=== PATIENT | male | born 1945 | race African-American/Black ===

== ENCOUNTER 2016-06-29 03:12 | Inpatient (IN) | payer OTHER, MEDICARE ==
[~2016-06-29] VITALS: Ht 170.2 cm; Wt 108.1 kg
[2016-06-29] VITALS (9 sets, daily range): BP systolic 120–174; BP diastolic 64–84; PULSE 60–84; RESP 14–20; TEMP 96.7–98.6; O2SAT 93–100
[~2016-06-29 03:12] MED LIST: ASPI325T PO; FURO20 PO; METO50TA PO; PACE100T2 PO; RANI150T PO; WARF2TAB PO
[2016-06-29] MEDS ORDERED: SODIUM CHLOR 0.9% 1000 ML INJ 1,000 ML IV SCH (03:26)
[2016-06-29] MEDS ORDERED: SODIUM CHLORIDE 0.9% FLUSH 10 ML FLUSH IVF PRN (03:30)
[2016-06-29] MEDS ORDERED: METO50TA PO (03:32)
[2016-06-29] MEDS ORDERED: WARF4TAB51 PO (03:32)
[2016-06-29] MEDS ORDERED: ZANT150T2 PO (03:32)
[2016-06-29] MEDS ORDERED: FURO1TAB60 PO (03:32)
--- NOTE | 2016-06-29 03:36 | PD ---
HPI Chief Complaint: GI Complaint Time Seen by Provider: 03:24 Travel History International Travel<30 days: No Contact w/Intl Traveler<30days: No Traveled to known affect area: No History of Present Illness HPI This is a 70-year-old male with a history of COPD, CHF, previous left sided MCA stroke, a flutter, paced rhythm, who presents today with complaints of near syncope while having a bowel movement. The patient reports that he's had 3 large explosive bowel movements that are maroon in color. He states the last bowel movement was followed by severe dizziness, sweating and feeling as though he was given a pass out. The patient is taking Coumadin for his abnormal cardiac rhythm. He denies any pain. He denies any shortness of breath. He states he is much better now than he was when 911 was called. PFSH Past Medical History Arthritis: No Asthma: No Autoimmune Disease: No Blood Disorders: No Anxiety: No Depression: No Heart Rhythm Problems: Yes (A-FIB) Cancer: No Cardiovascular Problems: Yes High Cholesterol: No Chest Pain: No Congestive Heart Failure: Yes COPD: Yes Cerebrovascular Accident: Yes (2014) Diabetes: No Endocrine: No GERD: No Gout: Yes Genitourinary: No Headaches: No Hiatal Hernia: No Hypertension: Yes Immune Disorder: No Implanted Vascular Access Dvce: No Kidney Stones: No Musculoskeletal: No Neurologic: No Psychiatric: No Reproductive: No Respiratory: Yes Immunizations Current: No Migraines: No Renal Failure: No Seizures: No Sickle Cell Disease: No Sleep Apnea: Yes (PRN) Thyroid Disease: No Ulcer: No Past Surgical History Abdominal Surgery: No AICD: No Appendectomy: Yes Arteriovenous Shunt: No Cardiac Surgery: No Ear Surgery: No Endocrine Surgery: No Eye Surgery: No Genitourinary Surgery: No Gynecologic Surgery: No Insulin Pump: No Joint Replacement: No Oral Surgery: No Pacemaker: No Thoracic Surgery: No Tonsillectomy: Yes Other Surgery: Yes Social History Alcohol Use: No Tobacco Use: No Substance Use: No Allergies-Medications (Allergen,Severity, Reaction): Coded Allergies: Amoxicillin (Verified Allergy, Intermediate, DELERIOUS, 03/11/15) Uncoded Allergies: all cillian (Allergy, Severe, Hallucinations, 06/29/16) Reported Meds & Prescriptions Reported Meds & Active Scripts Active Reported Warfarin 2 Mg Tab 2 Mg PO DAILY Zantac (Ranitidine HCl) 150 Mg Tab 150 Mg PO BID Lasix (Furosemide) 40 Mg Tab 40 Mg PO BID Metoprolol Tartrate 50 Mg Tab 50 Mg PO BID Review of Systems Except as stated in HPI: all other systems reviewed are Neg General / Constitutional: No: Fever, Chills HENT: No: Headaches, Lightheadedness Cardiovascular: No: Chest Pain or Discomfort, Palpitations Respiratory: No: Cough, Shortness of Breath Gastrointestinal: Positive: Hematochezia, No: Nausea, Vomiting, Abdominal Pain Genitourinary: No: Urgency, Nocturia Musculoskeletal: No: Myalgias, Weakness Neurologic: Positive: Dizziness (previously, none now), Syncope (near syncope while on the toilet.), Other (residual right sided weakness secondary to previous CVA), No: Headache, Change in Mentation Physical Exam Narrative GENERAL: Well-developed well-nourished male in no acute respiratory distress. SKIN: Focused skin assessment warm/dry. HEAD: Atraumatic. Normocephalic. EYES: Questionable pale conjunctiva. No icteric sclera. ENT: No nasal bleeding or discharge. Mucous membranes moist. Question will pale mucous membranes NECK: Trachea midline. No JVD. Supple CARDIOVASCULAR: Paced rhythm with a rate of 68. No murmur appreciated. RESPIRATORY: No accessory muscle use. Clear to auscultation. Breath sounds equal bilaterally. GASTROINTESTINAL: Abdomen soft, non-tender, nondistended. Hepatic and splenic margins not palpable. RECTAL EXAM: No masses or tenderness, stool is maroon. It tested heme positive on the Hemoccult strip. MUSCULOSKELETAL: No obvious deformities. No clubbing. No cyanosis. No edema. NEUROLOGICAL: Awake and alert. No obvious cranial nerve deficits. Mild right sided deficit secondary to old stroke. Normal speech. PSYCHIATRIC: Appropriate mood and affect; insight and judgment normal. Data Data Last Documented VS Vital Signs Date Time Temp Pulse Resp B/P Pulse Ox O2 Delivery O2 Flow Rate FiO2 06/29/16 05:00 60 16 124/68 100 06/29/16 03:15 98.6 Orders Basic Metabolic Panel (Bmp) (06/29/16 03:26) Comprehensive Metabolic Panel (06/29/16 03:26) Prothrombin Time / Inr (Pt) (06/29/16 03:26) Act Partial Throm Time (Ptt) (06/29/16 03:26) Type And Screen (06/29/16 03:26) Abdomen, Kub Only (06/29/16 03:26) Ecg Monitoring (06/29/16 03:26) Iv Access Insert/Monitor (06/29/16 03:26) Oximetry (06/29/16 03:26) Sodium Chlor 0.9% 1000 Ml Inj (Ns 1000 M (06/29/16 03:26) Sodium Chloride 0.9% Flush (Ns Flush) (06/29/16 03:30) Complete Blood Count With Diff (06/29/16 04:22) Admit Order (Ed Use Only) (06/29/16 05:24) Labs Laboratory Tests Test 06/29/16 03:30 White Blood Count 8.5 TH/MM3 Red Blood Count 4.92 MIL/MM3 Hemoglobin 10.3 GM/DL Hematocrit 32.8 % Mean Corpuscular Volume 66.7 FL Mean Corpuscular Hemoglobin 20.9 PG Mean Corpuscular Hemoglobin 31.4 % Concent Red Cell Distribution Width 18.5 % Platelet Count 199 TH/MM3 Mean Platelet Volume 9.0 FL Neutrophils (%) (Auto) 64.8 % Lymphocytes (%) (Auto) 22.3 % Monocytes (%) (Auto) 10.4 % Eosinophils (%) (Auto) 2.2 % Basophils (%) (Auto) 0.3 % Neutrophils # (Auto) 5.5 TH/MM3 Lymphocytes # (Auto) 1.9 TH/MM3 Monocytes # (Auto) 0.9 TH/MM3 Eosinophils # (Auto) 0.2 TH/MM3 Basophils # (Auto) 0.0 TH/MM3 CBC Comment AUTO DIFF Differential Comment AUTO DIFF CONFIRMED Platelet Estimate NORMAL Platelet Morphology Comment NORMAL Ovalocytes 1+ Acanthocytes 1+ Keratocytes OCC Prothrombin Time 13.5 SEC Prothromb Time International 1.2 RATIO Ratio Activated Partial 23.1 SEC Thromboplast Time Sodium Level 146 MEQ/L Potassium Level 3.6 MEQ/L Chloride Level 109 MEQ/L Carbon Dioxide Level 29.3 MEQ/L Anion Gap 8 MEQ/L Blood Urea Nitrogen 21 MG/DL Creatinine 1.23 MG/DL Estimat Glomerular Filtration 70 ML/MIN Rate Random Glucose 154 MG/DL Calcium Level 8.8 MG/DL Total Bilirubin 1.1 MG/DL Aspartate Amino Transf 23 U/L (AST/SGOT) Alanine Aminotransferase 16 U/L (ALT/SGPT) Alkaline Phosphatase 80 U/L Total Protein 6.9 GM/DL Albumin 3.3 GM/DL Blood Type O POSITIVE Antibody Screen NEGATIVE MDM Medical Decision Making Medical Screen Exam Complete: Yes Emergency Medical Condition: Yes Differential Diagnosis Symptomatically anemia versus GI bleed versus electrolyte abnormality versus vagovagal Narrative Course 70 year-old gentleman with a history of hypertension, paced rhythm with previous a flutter, who presents today with near syncope while having a bowel movement. The patient states she's had 3 large bowel movements that are maroon in color today. He denies any pain. He denies any shortness of breath. He did report dizziness and diaphoresis during the episode. The patient has heme positive maroon stool on examination. Hemoglobin is 10.3. INR is 1.2. There is a call out to the [facility] for admission. Diagnosis Primary Impression: GI bleed Additional Impressions: Near syncope HX: anticoagulation History of CVA (cerebrovascular accident) Disposition: 01 DISCHARGE HOME Mayur Posada MD June 29, 2016 03:36
[2016-06-29 03:54] LABS: APTT (PATIENT) 23.1 SEC (24.3-30.1); INTERNATIONAL NORMALIZED RATIO 1.2 RATIO; PROTHROMBIN TIME - PATIENT 13.5 SEC (9.8-11.6)
[2016-06-29 04:08] LABS: ALT (GPT) 16 U/L (12-78); ANION GAP 8 MEQ/L (5-15); AST (GOT) 23 U/L (15-37); BICARBONATE 29.3 MEQ/L (21.0-32.0); BLOOD UREA NITROGEN 21 MG/DL (7-18); CHLORIDE 109 MEQ/L (98-107); GLOMERULAR FILTRATION RATE 70 ML/MIN (>89); POTASSIUM 3.6 MEQ/L (3.5-5.1); SODIUM (NA) 146 MEQ/L (136-145)
[2016-06-29 04:10] LABS: ALKALINE PHOSPHATASE 80 U/L (45-117); TOTAL BILIRUBIN ADULT 1.1 MG/DL (0.2-1.0)
--- NOTE | 2016-06-29 04:17 | RADRPT ---
EXAM DATE/TIME: 06/29/2016 03:41 [facility] COMPARISON: CHEST PA & LAT, March 11, 2015, 4:07. INDICATIONS : Blood in stool. General weakness. MEDICAL HISTORY : Hypertension. Chronic obstructive pulmonary disease. SURGICAL HISTORY : Appendectomy. ENCOUNTER: Initial ACUITY: 1 day PAIN SCORE: 0/10 LOCATION: All quadrants. FINDINGS: Supine view of the abdomen was performed. The abdominal bowel gas pattern is normal. No abnormal ma sses, calcifications, or organomegaly is seen. There are degenerative changes involving the lower lum bar spine. Nonspecific elevation of the right hemidiaphragm. Stable compared to the prior chest x-ray .. CONCLUSION: Benign abdomen. Sherwin Thomson MD on June 29, 2016 at 4:14 Board Certified Radiologist. This report was verified electronically.
[2016-06-29 04:33] LABS: AUTOMATED NEUTROPHIL # 5.5 TH/MM3 (1.8-7.7); BASOPHIL % 0.3 % (0.0-2.0); EOSINOPHIL # 0.2 TH/MM3 (0-0.4); EOSINOPHIL % 2.2 % (0.0-4.0); HEMATOCRIT 32.8 % (39.0-51.0); LYMPH % 22.3 % (9.0-44.0); LYMPHOCYTE # 1.9 TH/MM3 (1.0-4.8); MEAN CELL VOLUME 66.7 FL (80.0-100.0); MEAN CORPUSCULAR HEMOGLOBIN 20.9 PG (27.0-34.0); MEAN CORPUSCULAR HGB CONC 31.4 % (32.0-36.0); MONO % 10.4 % (0.0-8.0); NEUT % 64.8 % (16.0-70.0); PLATELET COUNT 199 TH/MM3 (150-450); RED BLOOD COUNT 4.92 MIL/MM3 (4.50-5.90); RED CELL DISTRIBUTION WIDTH 18.5 % (11.6-17.2); WHITE BLOOD COUNT 8.5 TH/MM3 (4.0-11.0)
[2016-06-29 04:36] LABS: HEMO FLAGS AUTO DIFF
[2016-06-29 05:03] LABS: OVALOCYTES 1+ (NORMAL); PLATELET ESTIMATE SMEAR NORMAL (NORMAL); PLATELET MORPHOLOGY NORMAL (NORMAL)
[2016-06-29 05:05] LABS: ACANTHOCYTES 1+ (NORMAL); KERATOCYTES OCC (NORMAL); SCAN/DIFF AUTO DIFF CONFIRMED
[2016-06-29] MEDS ORDERED: SODIUM CHLORIDE 0.9% FLUSH 10 ML FLUSH IV FLUSH PRN ×2 (05:45→09:15)
[2016-06-29] MEDS ORDERED: ONDANSETRON HCL 4 MG/2 ML VIAL IVP PRN ×2 (05:45→09:15)
[2016-06-29] MEDS ORDERED: NALOXONE HCL 0.4 MG/ML AMP IV PRN (05:45)
[2016-06-29] MEDS ORDERED: PANTOPRAZOLE INJ 80 MG in SODIUM CHLORIDE 0.9% INJ 35 ML IV ONE (06:45)
[2016-06-29] MEDS: PANTOPRAZOLE INJ 80 MG in SODIUM CHLORIDE 0.9% INJ 100 ML IV SCH ×2 (07:32→16:17)
--- NOTE | 2016-06-29 08:16 | EKG ---
Date Performed: 06/29/2016 Time Performed: 03:24:11 PTAGE: 70 years EKG: ELECTRONIC ATRIAL PACEMAKER ELECTRONIC VENTRICULAR PACEMAKER ABNORMAL RHYTHM ECG INTERPRETA TION BASED ON A DEFAULT AGE OF 40 YEARS COMPARED TO PRIOR ELECTROCARDIOGRAM, Dual-chamber pacemaker i s present. PREVIOUS TRACING : 03/11/2015 03.44 DOCTOR: Hector Her Interpretating Date/Time 06/29/2016 08:14:32
[2016-06-29] MEDS ORDERED: SODIUM CHLORIDE 0.9% FLUSH 10 ML FLUSH IV FLUSH SCH (09:00)
--- NOTE | 2016-06-29 09:12 | HHI.HP ---
[facility] Service [facility] Primary Care Physician Salima Gorman Admission Diagnosis GI Bleed, anemia, near syncope, paced rhythnm Diagnoses: Travel History International Travel<30 Days: No Contact w/Intl Traveler <30 Da: No Traveled to Known Affected Are: No History of Present Illness 70-year-old male with a history of COPD, systolic CHF EF 30%, previous left sided MCA stroke, A Fib/Flutter, paced rhythm, who presented to the ED with complaints of near syncope while having a bowel movement. The patient reports that he's had 3 large explosive bowel movements all bloody. He states the last bowel movement was followed by severe dizziness, sweating and feeling as though he was given a pass out. He was waking up at 2 AM with some abdominal pain, ' knot" and fullness, he went to the bath without problems and had 3 large bloody BMs. He says this never happened before. The patient is taking Coumadin for his abnormal cardiac rhythm for a long time. INR admission 1.2 . He denies any pain. He denies any shortness of breath. He states he is much better now. No subsequent BM thereafter. He is not feeling dizzy anymore. He says he never had EGD/Colonoscopy in the past but agrees to it. The patient is a Jehovah witness and is refusing all blood products. He states that he last took his Coumadin yesterday and takes that daily as prescribed, his INR is 1.2. He has right hand weakness at baseline form previous CVA. No other symptoms at this time. Review of Systems Except as stated in HPI: all other systems reviewed are Neg Past Family Social History Past Medical History Hypertension CHF 2-D echo 03/12/2006 with mildly decreased LV systolic function, EF 40-50% COPD Transbronchial lung biopsy 04/16/2006 - hypersensitivity pneumonitis. Negative for sarcoidosis. Past Surgical History Right ankle surgery Reported Medications Last Impressions Abdomen X-Ray 06/29/16 0326 Signed Impressions: Service Date/Time: Saturday, June 29, 2016 03:41 - CONCLUSION: Benign abdomen. Sherwin Thomson MD Allergies: Coded Allergies: Amoxicillin (Verified Allergy, Intermediate, DELERIOUS, 03/11/15) Uncoded Allergies: all cillian (Allergy, Severe, Hallucinations, 06/29/16) Family History Mother from CHF Social History No tobacco, alcohol, illicit substance abuse. According to EMR injury 2006 he is a Jehovah witness Physical Exam Vital Signs Vital Signs Date Time Temp Pulse Resp B/P Pulse Ox O2 Delivery O2 Flow Rate FiO2 06/29/16 08:00 97.7 64 18 153/84 94 06/29/16 06:10 63 16 144/67 99 06/29/16 05:00 60 16 124/68 100 06/29/16 03:15 98.6 84 16 120/78 Physical Exam GENERAL: This is a well-nourished, well-developed patient, in no apparent distress. SKIN: No rashes, ecchymoses or lesions. Cool and dry. HEAD: Atraumatic. Normocephalic. No temporal or scalp tenderness. EYES: Pupils equal round and reactive. Extraocular motions intact. No scleral icterus. No injection or drainage. ENT: Nose without bleeding, purulent drainage or septal hematoma. Throat without erythema, tonsillar hypertrophy or exudate. Uvula midline. Airway patent. NECK: Trachea midline. No JVD or lymphadenopathy. Supple, nontender, no meningeal signs. CARDIOVASCULAR: Regular rate and rhythm without murmurs, gallops, or rubs. RESPIRATORY: Clear to auscultation. Breath sounds equal bilaterally. No wheezes , rales, or rhonchi. GASTROINTESTINAL: Abdomen soft, non-tender, nondistended. No hepato-splenomegaly , or palpable masses. No guarding. MUSCULOSKELETAL: Extremities without clubbing, cyanosis, or edema. No joint tenderness, effusion, or edema noted. No calf tenderness. Negative Homans sign bilaterally. NEUROLOGICAL: Awake and alert. Cranial nerves grossly intact. Motor and sensory grossly within normal limits. Muscle strength 4/5 right hand, rest normal strengths. Normal speech. Laboratory Laboratory Tests Test 06/29/16 06/29/16 03:30 05:38 White Blood Count 8.5 Red Blood Count 4.92 Hemoglobin 10.3 Hematocrit 32.8 Mean Corpuscular Volume 66.7 Mean Corpuscular Hemoglobin 20.9 Mean Corpuscular Hemoglobin 31.4 Concent Red Cell Distribution Width 18.5 Platelet Count 199 Mean Platelet Volume 9.0 Neutrophils (%) (Auto) 64.8 Lymphocytes (%) (Auto) 22.3 Monocytes (%) (Auto) 10.4 Eosinophils (%) (Auto) 2.2 Basophils (%) (Auto) 0.3 Neutrophils # (Auto) 5.5 Lymphocytes # (Auto) 1.9 Monocytes # (Auto) 0.9 Eosinophils # (Auto) 0.2 Basophils # (Auto) 0.0 CBC Comment AUTO DIFF Differential Comment AUTO DIFF CONFIRMED Platelet Estimate NORMAL Platelet Morphology Comment NORMAL Ovalocytes 1+ Acanthocytes 1+ Keratocytes OCC Prothrombin Time 13.5 Prothromb Time International 1.2 Ratio Activated Partial 23.1 Thromboplast Time Sodium Level 146 Potassium Level 3.6 Chloride Level 109 Carbon Dioxide Level 29.3 Anion Gap 8 Blood Urea Nitrogen 21 Creatinine 1.23 Estimat Glomerular Filtration 70 Rate Random Glucose 154 Calcium Level 8.8 Total Bilirubin 1.1 Aspartate Amino Transf 23 (AST/SGOT) Alanine Aminotransferase 16 (ALT/SGPT) Alkaline Phosphatase 80 Total Protein 6.9 Albumin 3.3 Blood Type O POSITIVE Antibody Screen NEGATIVE Crossmatch Leukocyte-Reduced Red Blood Cells Blood Bank Comment Result Diagram: 06/29/1632906/29/16329 Imaging Last Impressions Abdomen X-Ray 06/29/16325 Signed Impressions: Service Date/Time: Wednesday, June 29, 2016 03:41 - CONCLUSION: Benign abdomen. Sherwin Thomson MD Assessment and Plan Assessment and Plan Likely vasovagal syncope related to defecation/micturition. Patient also with h/o CVA and cardiac CHF, Afib etc Monitor. Neurochecks. Restart home meds. Monitor VS. Hold BP meds if low BP NPO, plan for EGD, poss colonoscopy GIB H/H so far stable. Monitor and transfuse if symptomatic or HGB < 7 GI consulted. Start PPI Hold coumadin The patient is a Jehovah witness and is refusing all blood products. COPD without exacerbation - Restart home meds. keep on oxygen to keep O2 sat > 90% Cardiomyopathy, CHF systolic EF 30%, AFib/flutter , has PM. Continue home meds. Monitor BP as might be going down 2.2 bleeding. CVA. PT eval. Continue home meds. -DVT prophylaxis SCD. CI chemical ppx 2/2 poss GIB Discussed with the patient, nurse, GI service. Jelena Amor MD June 29, 2016 09:12
[2016-06-29] MEDS ORDERED: MAGNESIUM HYDROXIDE SUSP 30 ML CUP PO PRN (09:15)
[2016-06-29] MEDS ORDERED: ACETAMINOPHEN 325 MG TAB PO PRN (09:15)
[2016-06-29] MEDS ORDERED: TEMAZEPAM 15 MG CAP PO PRN (09:15)
--- NOTE | 2016-06-29 10:54 | PD.CONS ---
HPI History of Present Illness This is a 70 year old male with multiple medical problems including atrial flutter with a hx of left MCA CVA, currently on Coumadin, who presented to the ER for evaluation after a near syncopal episode. He reports that around 2 AM this morning he woke up with the sudden urge to move his bowels. He reports that he had a "knot" in his stomach with some lower abdominal cramping. He went to the restroom and had three explosive loose stools that were dark maroon in color. He states that at the time, he also had some nausea and dry heaving. He felt diaphoretic and dizzy at the time, but states after the third bowel movement, he felt better and that he was no longer having the nausea or abdominal pain. His daughter called [facility] and he was brought to the ER for further evaluation. He was found to have anemia with an H&H of 10.3/32.8. Of note, the patient is a Jehovah witness and is refusing all blood products. He states that he last took his Coumadin yesterday and takes that daily as prescribed, although his INR is 1.2. He denies any prior history of GI bleeding or peptic ulcer disease. He has never had an EGD or colonoscopy. He denies the use of ibuprofen or Motrin. He does not drink alcohol. He denies any recent travel, sick contacts, or recent antibiotic use. He initially thought he eats some bad ham from [employer], but states his surgery at the same food last night for dinner and she was fine. Discussed further evaluation with EGD/colonoscopy with patient. He initially refused, but is now agreeable. ( Sonia Klein) PFSH Past Medical History Hypertension CHF COPD Pneumonitis Past Surgical History Right ankle surgery (Sonia Klein) Coded Allergies: Amoxicillin (Verified Allergy, Intermediate, DELERIOUS, 03/11/15) Uncoded Allergies: all cillian (Allergy, Severe, Hallucinations, 06/29/16) Medications Allergies Coded Allergies Type Severity Reaction Last Updated Verified Amoxicillin Allergy Intermediate DELERIOUS 03/11/15 Yes Uncoded Allergies Type Severity Reaction Last Updated Verified all cillian Allergy Severe Hallucinations 06/29/16 Active Scripts Medications Dose Route/Sig Days Date Category Warfarin 2 Mg Tab 2 Mg PO DAILY 06/29/16 Reported Zantac (Ranitidine HCl) 150 Mg Tab 150 Mg PO BID 06/29/16 Reported Lasix (Furosemide) 40 Mg Tab 40 Mg PO BID 06/29/16 Reported Metoprolol Tartrate 50 Mg Tab 50 Mg PO BID 06/29/16 Reported Family History Mother from CHF Denies any family hx of cancer Social History No tobacco, alcohol, illicit substance abuse Pt is a Jehovah witness (Sonia Klein) Review of Systems Constitutional: COMPLAINS OF: Diaphoretic episodes, Fatigue Respiratory: DENIES: Shortness of breath Cardiovascular: DENIES: Chest pain Gastrointestinal: COMPLAINS OF: Bloody stools, Diarrhea, Nausea, DENIES: Abdominal pain, Black stools, Constipation, Vomiting, Swelling of Abdomen Musculoskeletal: COMPLAINS OF: Joint pain, Back pain Hematologic/lymphatic: COMPLAINS OF: Bruising Neurologic: DENIES: Headache Psychiatric: DENIES: Confusion (Sonia Klein) GI Exam Vitals I&O Vital Signs Date Time Temp Pulse Resp B/P Pulse Ox O2 Delivery O2 Flow Rate FiO2 06/29/16 08:00 97.7 64 18 153/84 94 06/29/16 06:10 63 16 144/67 99 06/29/16 05:00 60 16 124/68 100 06/29/16 03:15 98.6 84 16 120/78 Imaging Last Impressions Abdomen X-Ray 06/29/16 0326 Signed Impressions: Service Date/Time: Wednesday, June 29, 2016 03:41 - CONCLUSION: Benign abdomen. Sherwin Thomson MD Laboratory Test 06/29/16 06/29/16 03:30 05:38 White Blood Count 8.5 TH/MM3 Red Blood Count 4.92 MIL/MM3 Hemoglobin 10.3 GM/DL Hematocrit 32.8 % Mean Corpuscular Volume 66.7 FL Mean Corpuscular Hemoglobin 20.9 PG Mean Corpuscular Hemoglobin 31.4 % Concent Red Cell Distribution Width 18.5 % Platelet Count 199 TH/MM3 Mean Platelet Volume 9.0 FL Neutrophils (%) (Auto) 64.8 % Lymphocytes (%) (Auto) 22.3 % Monocytes (%) (Auto) 10.4 % Eosinophils (%) (Auto) 2.2 % Basophils (%) (Auto) 0.3 % Neutrophils # (Auto) 5.5 TH/MM3 Lymphocytes # (Auto) 1.9 TH/MM3 Monocytes # (Auto) 0.9 TH/MM3 Eosinophils # (Auto) 0.2 TH/MM3 Basophils # (Auto) 0.0 TH/MM3 CBC Comment AUTO DIFF Differential Comment AUTO DIFF CONFIRMED Platelet Estimate NORMAL Platelet Morphology Comment NORMAL Ovalocytes 1+ Acanthocytes 1+ Keratocytes OCC Prothrombin Time 13.5 SEC Prothromb Time International 1.2 RATIO Ratio Activated Partial 23.1 SEC Thromboplast Time Sodium Level 146 MEQ/L Potassium Level 3.6 MEQ/L Chloride Level 109 MEQ/L Carbon Dioxide Level 29.3 MEQ/L Anion Gap 8 MEQ/L Blood Urea Nitrogen 21 MG/DL Creatinine 1.23 MG/DL Estimat Glomerular Filtration 70 ML/MIN Rate Random Glucose 154 MG/DL Calcium Level 8.8 MG/DL Total Bilirubin 1.1 MG/DL Aspartate Amino Transf 23 U/L (AST/SGOT) Alanine Aminotransferase 16 U/L (ALT/SGPT) Alkaline Phosphatase 80 U/L Total Protein 6.9 GM/DL Albumin 3.3 GM/DL Blood Type O POSITIVE Antibody Screen NEGATIVE Crossmatch Leukocyte-Reduced Red Blood Cells Blood Bank Comment Physical Examination HEENT: Normocephalic; atraumatic; no jaundice. CHEST: CTA, diminished bases CARDIAC: RRR ABDOMEN: Soft, nondistended, nontender; no hepatosplenomegaly; bowel sounds are present in all four quadrants. EXTREMITIES: No clubbing, cyanosis, or edema. SKIN: Normal; no rash; no jaundice. CANCER RESEARCHER: No focal deficits; alert and oriented times three. (Sonia Klein) Assessment and Plan Plan ASSESSMENT: - GIB, Bloody stool. Pt woke up 2am with sudden urge to move his bowels with associated nausea, dry heaving, had 3 maroon bloody stools. He was diaphoretic and dizzy, but after the third episode, his symptoms resolved. He has not had any further episodes. HH 10.3/32.8. - Microcytic, hypochromic anemia. 10.3/32.8, MCV 66.7, MCHC 31.4. - Near syncopal episode, likely vasovagal- occurred while having a bowel movement. - Aflutter, Hx CVA. Pt on Coumadin. States he last took yesterday, INR 1.2. - CHF, COPD per primary - PT IS A JEHOVAH WITNESS AND DOES NOT WANT ANY BLOOD PRODUCTS PLAN: - EGD today - NPO - Change protonix to 40mg iV BID - Monitor HH - Timing of colonoscopy to be determined - NO BLOOD PRODUCTS, JEHOVAH WITNESS - Further recommendations to follow based on results of above - Pt seen and examined by Dr. Dobbins and myself and this note is written on her behalf (Sonia Klein) Physician Comments seen, examined agree with above (Elizabeth Dobbins MD) Sonia Klein June 29, 2016 10:54 Elizabeth Dobbins MD June 29, 2016 17:59
[2016-06-29] MEDS ORDERED: PROPOFOL 200 MG/20 ML AMP IV ONE (13:23)
--- NOTE | 2016-06-29 13:36 | GIPROC ---
[facility] [address] [facility], [address] EGD PROCEDURE REPORT EXAM DATE: 06/29/2016 PATIENT NAME: Maximus Terry MR #: [id number] BIRTHDATE: 1945 ATTENDING: Elizabeth Dobbins MD ORDER #: [id number] BAG MACHINE HELPER: Jacobo Mattson and Marisabel Ellis STATUS: inpatient INDICATIONS: The patient is a 70 yr old male here for an EGD due to gi bleeding PROCEDURE PERFORMED: EGD w/ biopsy MEDICATIONS: None and Per Anesthesia. TOPICAL ANESTHETIC: none CONSENT: The patient understands the risks and benefits of the procedure and understands that these risks include, but are not limited to: sedation, allergic reaction, infection, perforation and/or bleeding. Alternative means of evaluation and treatment include, among others: physical exam, x-rays, and/or surgical intervention. The patient elects to proceed with this endoscopic procedure. medical equipment was checked for proper function. Hand hygiene and appropriate measures for infection prevention was taken. After the risks, benefits and alternatives of the procedure were thoroughly explained, Informed consent was verified, confirmed and timeout was successfully executed by the treatment team. The patient was anesthetized with topical anesthesia and the YAMAPax [id number] endoscope was introduced through the mouth and advanced to the second portion of the duodenum. Retroflexed views revealed a hiatal hernia The gastroscope was then slowly withdrawn and removed. Large amount of food in stomach suggesting gastroparesis polypoid mass in duodenal bulb-biopsy no blood seen instomach. ADVERSE EVENTS: There were no complications. IMPRESSIONS: 1. Large amount of food in stomach suggesting gastroparesis polypoid mass in duodenal bulb-biopsy no blood seen instomach 2. Retroflexed views revealed a hiatal hernia RECOMMENDATIONS: Clear liquid diet ct abdomen/pelvis if active bleeding bleeding scan will need repeat egd/eus possible colonsocopy in or, intubation we will wait on ct PATIENT CONDITION: stable DISPOSITION: Inpatient REPEAT EXAM: EGD pending biopsy results Elizabeth Dobbins MD eSigned: Elizabeth Dobbins MD 06/29/2016 1:36 PM cc:
[2016-06-29] MEDS ORDERED: DIATRIZOATE MEGLUM/DIATRIZOATE SOD 9 ML CUP PO ONE (14:15)
[2016-06-29 15:19] LABS: HEMATOCRIT 28.1 % (39.0-51.0)
[2016-06-29] MEDS: SODIUM CHLOR 0.9% 1000 ML INJ 1,000 ML IV SCH ×2 (16:24→20:00)
[2016-06-29 19:28] LABS: HEMATOCRIT 24.4 % (39.0-51.0)
[2016-06-29] MEDS ORDERED: IOHEXOL 350 MG/ML 10 ML VIAL (for RAD DIAG) IV ONE (21:09)
--- NOTE | 2016-06-29 21:17 | RADRPT ---
EXAM DATE/TIME: 06/29/2016 20:52 [place] COMPARISON: No previous studies available for comparison. INDICATIONS : Evaluate reason for anemia,GI bleed bloody diarrhia. IV CONTRAST: 96 cc Omnipaque 350 (iohexol) IV ORAL CONTRAST: Prescribed oral contrast ingested. RADIATION DOSE: 17.49 CTDIvol (mGy) MEDICAL HISTORY : Cardiovascular disease. Cerebrovascular disease. Hypertension.CHF SURGICAL HISTORY : Appendectomy. ENCOUNTER: Initial ACUITY: 1 day PAIN SCALE: 0/10 LOCATION: ABDOMEN TECHNIQUE: Volumetric scanning of the abdomen and pelvis was performed. Using automated exposure control and ad justment of the mA and/or kV according to patient size, radiation dose was kept as low as reasonably achievable to obtain optimal diagnostic quality images. FINDINGS: LOWER LUNGS: The mild infiltrate in the lung bases. LIVER: Homogeneous density without lesion. There is no dilation of the biliary tree. Dependent calcified ga llstones in minimally distended gallbladder.. SPLEEN: Normal size without lesion. PANCREAS: Within normal limits. KIDNEYS: Bilateral renal cysts. No stone or hydronephrosis. ADRENAL GLANDS: Within normal limits. VASCULAR: There is no aortic aneurysm. BOWEL/MESENTERY: The stomach, small bowel, and colon demonstrate no acute abnormality. There is no free intraperitone al air or fluid. ABDOMINAL WALL: Within normal limits. RETROPERITONEUM: Single slightly prominent lymph node in the celiac region aerated no evidence of para-aortic adenopat hy or deep pelvic adenopathy. BLADDER: No wall thickening or mass. REPRODUCTIVE: Enlarged prostate with calcifications. Mild impression on the bladder base. INGUINAL: There is no lymphadenopathy or hernia. MUSCULOSKELETAL: Within normal limits for patient age. CONCLUSION: Gallstones. Small celiac region lymph node. Renal cysts. Lung base infiltrates. No specific explanati on for GI bleed William Jones MD on June 29, 2016 at 21:11 Board Certified Radiologist. This report was verified electronically.
[2016-06-29] MEDS: SODIUM CHLORIDE 0.9% FLUSH 10 ML FLUSH IV FLUSH SCH (22:01)
[2016-06-29 23:30] LABS: HEMATOCRIT 25.1 % (39.0-51.0)
[2016-06-29 23:36] LABS: REVIEW FLAG FINAL
[2016-06-30] VITALS (7 sets, daily range): BP systolic 124–176; BP diastolic 69–90; PULSE 70–86; RESP 14–22; TEMP 97.6–99; O2SAT 85–98
[2016-06-30] MEDS ORDERED: MAGNESIUM CITRATE SOLN 300 ML BTL PO ONE (02:00)
[2016-06-30] MEDS ORDERED: BISACODYL EC 5 MG TABEC PO ONE (02:00)
[2016-06-30] MEDS ORDERED: POVIDONE IODINE 5% (ANTISEPSIS KIT) 4 APPLICATIONS EACH NARE PRN (02:15)
[2016-06-30] MEDS ORDERED: CHLORHEXIDINE GLUCONATE 2 % 1 PACK (2 CLOTHS) TOPICAL PRN (02:15)
[2016-06-30] MEDS ORDERED: LACTATED RINGER'S 1000 ML IV PRN (02:15)
[2016-06-30 03:55] LABS: AUTOMATED NEUTROPHIL # 2.1 TH/MM3 (1.8-7.7); BASOPHIL % 0.7 % (0.0-2.0); EOSINOPHIL # 0.2 TH/MM3 (0-0.4); EOSINOPHIL % 4.5 % (0.0-4.0); HEMATOCRIT 23.6 % (39.0-51.0); LYMPHOCYTE # 1.6 TH/MM3 (1.0-4.8); MEAN CELL VOLUME 65.8 FL (80.0-100.0); MEAN CORPUSCULAR HEMOGLOBIN 20.9 PG (27.0-34.0); MEAN CORPUSCULAR HGB CONC 31.8 % (32.0-36.0); MONO % 16.6 % (0.0-8.0); NEUT % 45.2 % (16.0-70.0); PLATELET COUNT 145 TH/MM3 (150-450); RED BLOOD COUNT 3.59 MIL/MM3 (4.50-5.90); RED CELL DISTRIBUTION WIDTH 18.5 % (11.6-17.2); WHITE BLOOD COUNT 4.7 TH/MM3 (4.0-11.0)
[2016-06-30 04:02] LABS: HEMO FLAGS AUTO DIFF
[2016-06-30 04:37] LABS: BICARBONATE 28.6 MEQ/L (21.0-32.0); POTASSIUM 3.5 MEQ/L (3.5-5.1)
[2016-06-30] MEDS: SODIUM CHLOR 0.9% 1000 ML INJ 1,000 ML IV SCH ×2 (04:43→16:00)
[2016-06-30] MEDS: PANTOPRAZOLE INJ 80 MG in SODIUM CHLORIDE 0.9% INJ 100 ML IV SCH ×3 (04:43→21:35)
[2016-06-30 06:38] LABS: ACANTHOCYTES OCC (NORMAL); PLATELET ESTIMATE SMEAR NORMAL (NORMAL); PLATELET MORPHOLOGY NORMAL (NORMAL); SCAN/DIFF AUTO DIFF CONFIRMED
[2016-06-30] MEDS: SODIUM CHLORIDE 0.9% FLUSH 10 ML FLUSH IV FLUSH SCH ×2 (08:19→21:34)
--- NOTE | 2016-06-30 09:04 | HHI.PR ---
Subjective Remarks Patient has bloody bowel movement in the morning. No fever or chills. Pain is controlled by meds. H/H so far is stable. Plan for colonoscopy and repeat EGD , patient has to be intubated thereafter. To be transferred to ICU after procedure. Objective Vitals Vital Signs Date Time Temp Pulse Resp B/P Pulse Ox O2 Delivery O2 Flow Rate FiO2 06/30/16 08:00 98.1 72 14 176/90 95 06/30/16 01:14 85 06/30/16 00:00 97.6 76 20 124/69 96 06/29/16 20:18 72 06/29/16 20:00 98.4 71 20 151/83 96 06/29/16 16:00 96.7 71 14 174/81 93 06/29/16 13:45 62 18 131/72 96 06/29/16 13:40 65 18 127/74 94 06/29/16 13:35 98.5 66 16 97/52 90 06/29/16 12:54 97.7 64 18 153/64 94 06/29/16 12:00 97.4 65 14 124/73 95 I/O 06/29/16 06/29/16 06/29/16 06/30/16 06/30/16 06/30/16 06:59 14:59 22:59 06:59 14:59 22:59 Intake Total 126 ml 50 ml 920 ml 787 ml Output Total 200 ml 200 ml Balance 126 ml -150 ml 920 ml 587 ml Intake Oral 0 ml 120 ml 0 ml IV Total 126 ml 50 ml 800 ml 787 ml Output Urine Total 200 ml 200 ml # Voids 1 # Bowel Movements 0 Result Diagram: 06/30/16 0334 06/30/16 0334 Imaging Last Impressions Abdomen X-Ray 06/29/16 0326 Signed Impressions: Service Date/Time: Wednesday, June 29, 2016 03:41 - CONCLUSION: Benign abdomen. Sherwin Thomson MD Abdomen/Pelvis CT 06/29/16 0000 Signed Impressions: Service Date/Time: Wednesday, June 29, 2016 20:52 - CONCLUSION: Gallstones. Small celiac region lymph node. Renal cysts. Lung base infiltrates. No specific explanation for GI bleed William Jones MD Objective Remarks GENERAL: This is a well-nourished, well-developed patient, in no apparent distress. SKIN: No rashes, ecchymoses or lesions. Cool and dry. HEAD: Atraumatic. Normocephalic. No temporal or scalp tenderness. EYES: Pupils equal round and reactive. Extraocular motions intact. No scleral icterus. No injection or drainage. ENT: Nose without bleeding, purulent drainage or septal hematoma. Throat without erythema, tonsillar hypertrophy or exudate. Uvula midline. Airway patent. NECK: Trachea midline. No JVD or lymphadenopathy. Supple, nontender, no meningeal signs. CARDIOVASCULAR: Regular rate and rhythm without murmurs, gallops, or rubs. RESPIRATORY: Clear to auscultation. Breath sounds equal bilaterally. No wheezes , rales, or rhonchi. GASTROINTESTINAL: Abdomen soft, non-tender, nondistended. No hepato-splenomegaly , or palpable masses. No guarding. MUSCULOSKELETAL: Extremities without clubbing, cyanosis, or edema. No joint tenderness, effusion, or edema noted. No calf tenderness. Negative Homans sign bilaterally. NEUROLOGICAL: Awake and alert. Cranial nerves grossly intact. Motor and sensory grossly within normal limits. Muscle strength 4/5 right hand, rest normal strengths. Normal speech. A/P Assessment and Plan Likely vasovagal syncope related to defecation/micturition. Patient also with h/o CVA and cardiac CHF, Afib etc Monitor. Neurochecks. Restart home meds. Monitor VS. Hold BP meds if low BP S/p EGD : large amoubt of food in the stomach gastroparesis polypoid mass in duodenal bulb - biopsy obtained by Dr Dobbins Hiatal hernia CT abd/pelvis patient with active bleeding scan and also had a bloody BM in the morning. Needs repeat EGD/colonoscopy per GI , patient will be intubated for this procedure ant then will go to ICU Appreciate GI recommendations Dr Dobbins GIB H/H so far stable. Monitor and transfuse if symptomatic or HGB < 7 GI consulted. Start PPI Hold coumadin The patient is a Jehovah witness and is refusing all blood products. COPD without exacerbation - Restart home meds. keep on oxygen to keep O2 sat > 90% Cardiomyopathy, CHF systolic EF 30%, AFib/flutter , has PM. Continue home meds. Monitor BP as might be going down 2.2 bleeding. CVA. PT eval. Continue home meds. -DVT prophylaxis SCD. CI chemical ppx 2/2 poss GIB Discussed with the patient, nurse, GI service. Discharge plan: Pending improvement clearance form consultants. Jelena Amor MD June 30, 2016 09:04
--- NOTE | 2016-06-30 10:06 | HHI.GIFU ---
Subjective Remarks Pt up on commode- passing large amount of maroon blood. Denies nausea, vomiting , abdominal pain. No distress at this time. Objective Vitals I&O Vital Signs Date Time Temp Pulse Resp B/P Pulse Ox O2 Delivery O2 Flow Rate FiO2 06/30/16 08:00 98.1 72 14 176/90 95 06/30/16 01:14 85 06/30/16 00:00 97.6 76 20 124/69 96 06/29/16 20:18 72 06/29/16 20:00 98.4 71 20 151/83 96 06/29/16 16:00 96.7 71 14 174/81 93 06/29/16 13:45 62 18 131/72 96 06/29/16 13:40 65 18 127/74 94 06/29/16 13:35 98.5 66 16 97/52 90 06/29/16 12:54 97.7 64 18 153/64 94 06/29/16 12:00 97.4 65 14 124/73 95 I/O 06/29/16 06/29/16 06/29/16 06/30/16 06/30/16 06/30/16 07:00 15:00 23:00 07:00 15:00 23:00 Intake Total 126 ml 50 ml 920 ml 787 ml Output Total 200 ml 200 ml Balance 126 ml -150 ml 920 ml 587 ml Intake Oral 0 ml 120 ml 0 ml IV Total 126 ml 50 ml 800 ml 787 ml Output Urine Total 200 ml 200 ml # Voids 1 # Bowel Movements 0 Laboratory Laboratory Tests Test 06/29/16 06/29/16 06/29/16 06/30/16 14:50 18:53 23:05 03:34 Hemoglobin 8.9 7.5 7.8 7.5 Hematocrit 28.1 24.4 25.1 23.6 White Blood Count 4.7 Red Blood Count 3.59 Mean Corpuscular Volume 65.8 Mean Corpuscular Hemoglobin 20.9 Mean Corpuscular Hemoglobin 31.8 Concent Red Cell Distribution Width 18.5 Platelet Count 145 Mean Platelet Volume 8.6 Neutrophils (%) (Auto) 45.2 Lymphocytes (%) (Auto) 33.0 Monocytes (%) (Auto) 16.6 Eosinophils (%) (Auto) 4.5 Basophils (%) (Auto) 0.7 Neutrophils # (Auto) 2.1 Lymphocytes # (Auto) 1.6 Monocytes # (Auto) 0.8 Eosinophils # (Auto) 0.2 Basophils # (Auto) 0.0 CBC Comment AUTO DIFF Differential Comment AUTO DIFF CONFIRMED Platelet Estimate NORMAL Platelet Morphology Comment NORMAL Acanthocytes OCC Sodium Level 143 Potassium Level 3.5 Chloride Level 110 Carbon Dioxide Level 28.6 Anion Gap 4 Blood Urea Nitrogen 20 Creatinine 0.96 Estimat Glomerular Filtration 94 Rate Random Glucose 89 Calcium Level 8.0 Imaging Last Impressions Abdomen X-Ray 06/29/16 0326 Signed Impressions: Service Date/Time: Wednesday, June 29, 2016 03:41 - CONCLUSION: Benign abdomen. Sherwin Thomson MD Abdomen/Pelvis CT 06/29/16 0000 Signed Impressions: Service Date/Time: Wednesday, June 29, 2016 20:52 - CONCLUSION: Gallstones. Small celiac region lymph node. Renal cysts. Lung base infiltrates. No specific explanation for GI bleed William Jones MD Physical Exam HEENT: Normocephalic; atraumatic CHEST: CTA. CARDIAC: RRR. ABDOMEN: Soft, nondistended, nontender; no hepatosplenomegaly; bowel sounds are present in all four quadrants. Passing large amount of maroon blood from rectum EXTREMITIES: No clubbing, cyanosis, or edema. SKIN: Normal; no rash; no jaundice. RETORT ENGINEER: No focal deficits; alert and oriented times three. Assessment and Plan Plan ASSESSMENT: - GIB, Bloody stool. Pt woke up 2am with sudden urge to move his bowels with associated nausea, dry heaving, had 3 maroon bloody stools on . Abdomen/Pelvis CT (06/29/16)----> Gallstones. Small celiac region lymph node. Renal cysts. Lung base infiltrates. No specific explanation for GI bleed. S/P EGD (06/30/16)----> 1. Large amount of food in stomach suggesting gastroparesis polypoid mass in duodenal bulb-biopsy no blood seen in stomach 2. Retroflexed views revealed a hiatal hernia. Plan was for colonoscopy today and EUS Saturday for further evaluation of polypoid duodenal mass. Pt started having significant GI bleeding this am- large amount of red blood from rectum. Clinically stable at this time. VS- 175/94, 72, 16, 93% . Plan is for colonoscopy ISAIAH. Called and spoke to Dr. Beltre about possible need for angiogram if bleeding unable to be controlled endoscopically, Pt is Jehovah witness and unable to receive blood. Will transfer to [facility]. Spoke to Dr. Ginger Bae. Hematology consulted. . Stat HH ordered for q6h once blood complete. NPO. Protonix. - Acute blood loss anemia. 10.3/32.8----> .07/10.. PT Jehovah Witness, no blood products. Consult hematology for further assistance. - Polypoid duodenal mass. Pathology pending. Will need EUS. - Near syncopal episode, likely vasovagal- occurred while having a bowel movement. - Aflutter, Hx CVA. Pt on Coumadin. States he last took , INR 1.2. - CHF, COPD per primary - PT IS A JEHOVAH WITNESS AND DOES NOT WANT ANY BLOOD PRODUCTS PLAN: - Colonoscopy today - Obtain consents - NPO - Tx to [facility] - Consult hematology - Monitor HH - Protonix 40mg iV BID - EUS Saturday - NO BLOOD PRODUCTS, JEHOVAH WITNESS - Further recommendations to follow based on results of above - Pt seen and examined by Dr. Dobbins and myself and this note is written on her behalf Sonia Klein June 30, 2016 10:06
[2016-06-30] MEDS ORDERED: EPINEPHrine HCL (1:10,000) 1 MG/10 ML SYRINGE OTHER ONE (10:53)
[2016-06-30] MEDS ORDERED: PROPOFOL 200 MG/20 ML AMP IV ONE (11:30)
--- NOTE | 2016-06-30 11:39 | GIPROC ---
[facility] [address] [facility]. [facility] [place], [address] COLONOSCOPY PROCEDURE REPORT EXAM DATE: 06/30/2016 PATIENT NAME: Maximus Terry MR #: [id number] BIRTHDATE: 1945 ENDOSCOPIST: Elizabeth Dobbins MD ORDER #: [id number] SPINNER HAND: Simone Sarah and Jaspal Shannon STATUS: inpatient INDICATIONS: The patient is a 70 yr old male here for a colonoscopy due to gi bleeding PROCEDURE PERFORMED: Colonoscopy, diagnostic MEDICATIONS: Per Anesthesia and None. PREP QUALITY: 20 % obscured PREP TYPE:Magnesium Citrate ESTIMATED BLOOD LOSS: None CONSENT: The patient understands the risks and benefits of the procedure and understands that these risks include, but are not limited to: sedation, allergic reaction, infection, perforation and/or bleeding. Alternative means of evaluation and treatment include, among others: physical exam, x-rays, and/or surgical intervention. The patient elects to proceed with this endoscopic procedure. medical equipment was checked for proper function. Hand hygiene and appropriate measures for infection prevention was taken. After the risks, benefits and alternatives of the procedure were thoroughly explained, Informed consent was verified, confirmed and timeout was successfully executed by the treatment team. A digital exam revealed external hemorrhoids The Pentax EC-3490Li endoscope was introduced through the anus and advanced to the cecum, which was identified by both the appendix and ileocecal valve. The instrument was then slowly withdrawn as the colon was fully examined. COLON FINDINGS: Pandiverticulosis, marilynn stool suctioned , up to cecum-no active bleeding few polyps in ascending colon, not removed at this time due to bleeding. Retroflexed views revealed internal hemorrhoids and Retroflexed views revealed small internal hemorrhoids The scope was then completely withdrawn from the patient and the procedure terminated. PROCEDURE WITHDRAWAL TIME:15minutes ADVERSE EVENTS: There were no complications. IMPRESSIONS: 1. Pandiverticulosis, marilynn stool suctioned , up to cecum-no active bleeding few polyps in ascending colon, not removed at this time due to bleeding 2. Retroflexed views revealed internal hemorrhoids 3. Retroflexed views revealed small internal hemorrhoids 4. Revealed external hemorrhoids RECOMMENDATIONS: 1. Benefiber 2 tsp daily 2. High fiber diet 3. Probiotics from any [facility] or health food store 4. Yearly rectal exams RECALL: Return 1 month Colonoscopy Elizabeth Dobbins MD eSigned: Elizabeth Dobbins MD 06/30/2016 11:39 AM cc:
--- NOTE | 2016-06-30 11:47 | GIPROC ---
[facility] [address] [facility]. [facility], [address] EGD PROCEDURE REPORT EXAM DATE: 06/30/2016 PATIENT NAME: Maximus Terry MR #: [id number] BIRTHDATE: 1945 ATTENDING: Elizabeth Dobbins MD ORDER #: [id number] BATCH TESTER: Simone Sarah and Jaspal Shannon STATUS: inpatient INDICATIONS: The patient is a 70 yr old male here for an EGD due to anemia, gi bleeding PROCEDURE PERFORMED: EGD w/ directed submucosal injection(s), any substance egd with clips MEDICATIONS: Per Anesthesia and None. TOPICAL ANESTHETIC: none CONSENT: The patient understands the risks and benefits of the procedure and understands that these risks include, but are not limited to: sedation, allergic reaction, infection, perforation and/or bleeding. Alternative means of evaluation and treatment include, among others: physical exam, x-rays, and/or surgical intervention. The patient elects to proceed with this endoscopic procedure. medical equipment was checked for proper function. Hand hygiene and appropriate measures for infection prevention was taken. After the risks, benefits and alternatives of the procedure were thoroughly explained, Informed consent was verified, confirmed and timeout was successfully executed by the treatment team. The patient was anesthetized with topical anesthesia and the EC-3490Li (Pedi C) endoscope was introduced through the mouth and advanced to the second portion of the duodenum. Retroflexed views revealed a hiatal hernia The gastroscope was then slowly withdrawn and removed. Polypoid mass in duodenal bulb- 3 cm , seems to have root originating in pyloric channel-no blood seen, small amount of blood at the biopsy site from yesterday, epinephrine 1:10, 000 injected in the root-4 cc, 2 clips applied. ADVERSE EVENTS: There were no complications. IMPRESSIONS: 1. Polypoid mass in duodenal bulb- 3 cm , seems to have root originating in pyloric channel-no blood seen, small amount of blood at the biopsy site from yesterday, epinephrine 1:10, 000 injected in the root-4 cc, 2 clips applied 2. Retroflexed views revealed a hiatal hernia RECOMMENDATIONS: Npo except ice chips stat bleeding scan if active bleeding agiogram consult surgery for endoscopic removal of the above mass we will need to schedule patient in OR with surgery on [place] as he is higr risk for bleeding from this lesion post removal, consider eus same time this lesion does not apper to be the source of bleeding at thsi point PATIENT CONDITION: stable DISPOSITION: Inpatient REPEAT EXAM: EGD pending biopsy results Elizabeth Dobbins MD eSigned: Elizabeth Dobbins MD 06/30/2016 11:47 AM cc:
[2016-06-30] MEDS ORDERED: *LABETALOL HCL 100 MG/20 ML VIAL PERIprocedural Use ONLY ONE (12:02)
[2016-06-30] MEDS ORDERED: CHLORHEXIDINE GLUCONATE 2 % 1 PACK (2 CLOTHS)(extra cloths) TOPICAL PRN (13:15)
[2016-06-30 13:22] LABS: HEMATOCRIT 26.9 % (39.0-51.0)
[2016-06-30 13:24] LABS: REVIEW FLAG FINAL
--- NOTE | 2016-06-30 13:59 | MB ---
cc: RICA MCLAIN DATE OF CONSULTATION: 06/30/2016. REASON FOR CONSULTATION: Caodaism with acute GI bleeding and symptomatic anemia. PATIENT PROFILE: The patient is a 71-year black male. He was once and he is . He has six children. He was born in [place], [place]. He does not smoke. He does not drink. He is a retired school bus driver/teacher assistant. He lives with his daughter. HISTORY OF PRESENT ILLNESS: The patient is a 71-year-old male who has a history of atrial fibrillation. He has had a stroke which resulted in the right hand weakness. He has a biventricular pacemaker. He takes Coumadin. On the day of admission, the patient developed three maroon-colored stools and became weak. He came to the emergency room yesterday, 06/29, with the above history and also he complained of severe dizziness and diaphoresis and near syncope following the episode of bleeding. He was found to be anemic on 06/29. The initial hemoglobin was 10.3 and it has dropped to 7.5 today. Today's CBC and platelet count 06/30/2016: hemoglobin 7.5, white count 4700, platelets are 145,000. What is striking is the MCV is 65. In November of 2003, the MCV was 80. This is indicative of iron deficiency anemia. The patient is a Caodaism. He makes it very clear about not wanting any products which come directly from another human being such as blood and platelets. The patient underwent an upper endoscopy on 06/29/2016 and this showed a large amount of fluid in the stomach. There is a polypoid mass in the duodenum which was biopsied. There was no blood seen in the stomach. A colonoscopy was performed today, on 06/30. The patient was found to have pandiverticulosis and maroon stool. There was no active bleeding. He has had no previous history of GI bleeding. At the time of admission, his PT was only 13.5 and PTT was 23 and therefore one cannot attribute the bleeding to the anticoagulation. PAST SURGICAL HISTORY: 1. Fracture right leg. 2. Placement of pacemaker left upper chest. PAST MEDICAL HISTORY 1. atrial fibrillation. 2. Stroke resulting in right hand weakness. 3. Gout. MEDICATIONS PRIOR TO ADMISSION 1. Lasix. 2. Metoprolol. 3. Zantac. 4. Warfarin. ALLERGIES: 1. AMOXICILLIN. 2. PENICILLIN. FAMILY HISTORY: No family history of any bleeding. REVIEW OF SYSTEMS: Occasionally his left eye medina. Hearing is slightly decreased. CARDIOVASCULAR: No chest pain, palpitations, orthopnea, PND except for the current episode of near syncope. RESPIRATORY: No shortness of breath. GI: Notable only for the three maroon-colored stools. There has been no weight loss or abdominal pain. : Normal. MUSCULOSKELETAL: No bone pain. NEUROLOGIC: No weakness. PSYCHIATRIC: No depression. LABORATORY STUDIES: Lytes, BUN and creatinine are unremarkable. The liver function tests are normal. PHYSICAL EXAM : appears weak Heent: wnl Heart: reg rhythm Lungs: clear Abd: soft obese Extrem +1 edema Skin :intact Neuro: no focal weakness. psyciatric: understand conversations. ASSESSMENT: The patient is a 70-year-old male presenting with a GI bleed. He is a Caodaism. He is symptomatic from the GI bleed with near syncope. He has very convincing evidence of iron deficiency with a low MCV of 65 and RDW of 18 where the MCV normally runs 80. PLAN: 1. He will be given Venofer 200 milligrams IV daily for five days. 2. He will be given Procrit 40,000 units daily for two days. 3. Will check iron, TIBC and ferritin, but I know that he is iron deficient. 4. On discharge, he should take iron sulfate 325 milligrams one p.o. twice a day. If there is no further bleeding, I suspect that his hemoglobin/hematocrit will start to rise in about a week's time as he is profoundly iron deficient and should respond to the iron infusions. MD KATHY Yepez/SIA /12:59 PM /1:49 PM KALEB
[2016-06-30 14:06] LABS: FERRITIN 6 NG/ML (26-388); TRANSFERRIN IRON PROFILE 203 MG/DL (200-360)
--- NOTE | 2016-06-30 17:42 | PD.CONS ---
HPI Service Critical Care Medicine Consult Requested By GI Service Reason for Consult active lower GI bleed Primary Care Physician Salima Gorman History of Present Illness This is a 70yM who is of Gnosticist ander with h/o CHF EF 30% and prior MCA stroke, A fib, who presented with syncope and large bloody bowel movements. He is currently being worked up for active GI bleed. GI consulted critical care medicine and asked that the patient be transferred to the ICU for close monitoring in the setting of active GI bleed without the option of transfusion. I talked with Mr. Terry, and he currently denies fatigue or syncope, though these were his presenting symptoms. he denies chest pain, abdominal pain. does still endorse high volume dark red diarrhea. He just arrived from colonoscopy ( results pending). Review of Systems Constitutional: COMPLAINS OF: Fatigue, Dizziness, DENIES: Diaphoretic episodes , Fever, Weight loss, Chills Cardiovascular: DENIES: Chest pain, Syncope, Dyspnea on Exertion, Lower Extremity Edema Gastrointestinal: COMPLAINS OF: Black stools, Bloody stools, Diarrhea, DENIES : Abdominal pain, Constipation, Nausea, Vomiting Past Family Social History Allergies: Coded Allergies: Amoxicillin (Verified Allergy, Intermediate, DELERIOUS, 03/11/15) Uncoded Allergies: all cillian (Allergy, Severe, Hallucinations, 06/29/16) Past Medical History Hypertension CHF 2-D echo 03/12/2006 with mildly decreased LV systolic function, EF 40-50% COPD Transbronchial lung biopsy 04/16/2006 - hypersensitivity pneumonitis. Negative for sarcoidosis. Past Surgical History Right ankle surgery Reported Medications none Active Ordered Medications See MAR Family History Mother from CHF Social History No tobacco, alcohol, illicit substance abuse. Gnosticist. refuses blood product administration. Physical Exam Vital Signs Vital Signs Date Time Temp Pulse Resp B/P Pulse Ox O2 Delivery O2 Flow Rate FiO2 06/30/16 16:00 Nasal Cannula 2.00 06/30/16 12:15 75 28 153/72 98 Nasal Cannula 2 06/30/16 12:00 78 27 194/86 99 Nasal Cannula 2 06/30/16 11:45 69 27 168/88 99 Nasal Cannula 2 06/30/16 11:36 98.6 75 27 136/64 93 Nasal Cannula 2 06/30/16 08:00 70 06/30/16 08:00 98.1 72 14 176/90 95 06/30/16 01:14 85 06/30/16 00:00 97.6 76 20 124/69 96 06/29/16 20:18 72 06/29/16 20:00 98.4 71 20 151/83 96 Physical Exam gen: elderly male, lying in bed, no acute distress heent: mucous membranes moist. neck: no jvd. trachea midline. chest: unlabored. equal chest rise. cv: normal rate, regular rhythm. sinus by telemetry abd: soft, obese, nontender, nondistended, no guarding extr: no peripheral edema. distal pulses 2+ neuro: awake, alert, oriented. follows commands. RASS 0. Laboratory Laboratory Tests Test 06/29/16 06/29/16 06/30/16 06/30/16 18:53 23:05 03:34 13:15 Hemoglobin 7.5 7.8 7.5 8.1 Hematocrit 24.4 25.1 23.6 26.9 White Blood Count 4.7 Red Blood Count 3.59 Mean Corpuscular Volume 65.8 Mean Corpuscular Hemoglobin 20.9 Mean Corpuscular Hemoglobin 31.8 Concent Red Cell Distribution Width 18.5 Platelet Count 145 Mean Platelet Volume 8.6 Neutrophils (%) (Auto) 45.2 Lymphocytes (%) (Auto) 33.0 Monocytes (%) (Auto) 16.6 Eosinophils (%) (Auto) 4.5 Basophils (%) (Auto) 0.7 Neutrophils # (Auto) 2.1 Lymphocytes # (Auto) 1.6 Monocytes # (Auto) 0.8 Eosinophils # (Auto) 0.2 Basophils # (Auto) 0.0 CBC Comment AUTO DIFF Differential Comment AUTO DIFF CONFIRMED Platelet Estimate NORMAL Platelet Morphology Comment NORMAL Acanthocytes OCC Sodium Level 143 Potassium Level 3.5 Chloride Level 110 Carbon Dioxide Level 28.6 Anion Gap 4 Blood Urea Nitrogen 20 Creatinine 0.96 Estimat Glomerular Filtration 94 Rate Random Glucose 89 Calcium Level 8.0 Iron Level 17 Total Iron Binding Capacity 284 Percent Iron Saturation 6.0 Ferritin 6 Result Diagram: 06/30/16 1315 06/30/16 0334 Imaging Last Impressions Abdomen X-Ray 06/29/166 Signed Impressions: Service Date/Time: Wednesday, June 29, 2016 03:41 - CONCLUSION: Benign abdomen. Sherwin Thomson MD Abdomen/Pelvis CT 06/29/16 0000 Signed Impressions: Service Date/Time: Wednesday, June 29, 2016 20:52 - CONCLUSION: Gallstones. Small celiac region lymph node. Renal cysts. Lung base infiltrates. No specific explanation for GI bleed William Jones MD Assessment and Plan Assessment and Plan Assessment: 70yM with active GI bleed of unknown origin. Likely either lower GI bleed or small bowel bleed. going for Colonoscopy and if negative, tagged red -cell scan. I had a long conversation with the patient where we discussed the possible need for life-saving blood product administration associated with an active GI bleed. He vehemently refuses any and all human blood product administration, and expressed detailed understanding of the implications of possible from this. Congruent with his wishes, we will not give him blood products. Recommendations: Upper GI Bleed: -- agree with Colonoscopy and tagged red-cell scan -- agree with NPO -- GI involved. Anemia -- no blood product administration -- agree with hematology consult -- agree with iron. -- would prefer not to check frequent laboratory values, as we are not going to act on these numbers, and we will iatrogenically add to his blood loss. Will remain in the ICU for close monitoring. Estiven Bae MD June 30, 2016 17:42
[2016-06-30] MEDS: EPOETIN ALFA 40,000 UNITS/ML VIAL SQ SCH (18:34)
[2016-06-30] MEDS: IRON SUCROSE INJ 200 MG in SODIUM CHLORIDE 0.9% INJ 100 ML IV SCH (18:35)
--- NOTE | 2016-06-30 18:39 | RADRPT ---
EXAM DATE/TIME: 06/30/2016 17:35 [facility] COMPARISON: GI BLEEDING SCAN, June 30, 2016, 14:47. INDICATIONS : Rectal bleed DOSE: 21.4 mCi Tc99m Ultratag labeled red blood cells IV IMAGIN hrs MEDICAL HISTORY : Chronic obstructive pulmonary disease. Hypertension. Congestive heart failure. SURGICAL HISTORY : Pacemaker. ENCOUNTER: Initial ACUITY: 2 days PAIN SCALE: 0/10 LOCATION: Bilateral lower quadrant TECHNIQUE: Following the modified in vitro labeling of autologous red cells, dynamic continuous images were acqu ired for the specified interval. FINDINGS: BIODISTRIBUTION: There is a very good labeling of red cells without significant uptake in the gastric wall. There is good delineation of the blood pool of the spleen and abdominal vessels. BLEEDING: No episodes of active GI bleeding are observed during specified interval of continuous observation. CONCLUSION: No active GI bleeding identified during the examination. Elmer Shoemaker MD on June 30, 2016 at 18:36 Board Certified Radiologist. This report was verified electronically.
[2016-06-30 18:56] LABS: HEMATOCRIT 26.7 % (39.0-51.0)
[2016-06-30 18:57] LABS: REVIEW FLAG FINAL
--- NOTE | 2016-06-30 22:09 | MB ---
cc: IDALIA RODRIGUEZ DATE OF CONSULTATION 06/30/16 REASON FOR CONSULTATION Bleeding polypoid lesion in the duodenum. HISTORY OF PRESENT ILLNESS This is a pleasant 70-year-old gentleman who was admitted to the hospital with a GI bleed. Dr. Dobbins has scoped him and likely found the source with an upper GI showing the polypoid lesion that looked like the source of the bleeding. Bleeding scan did not show any other area of bleeding. She has asked me to evaluate him. The chart is reviewed showing the colonoscopy and the reports that Dr. Dobbins dictated. PAST MEDICAL HISTORY 1. He is a Jehovah Witness, declines all blood products. He has a fairly extensive cardiac history with CHF and an ejection fraction of 30%. 2. He has had a CVA in the past. 3. Pacemaker. ALLERGIES AMOXICILLIN MEDICATIONS Included in the chart. PHYSICAL EXAMINATION GENERAL: He is sitting in the ICU, looks fairly comfortable. Hemodialysis results are stable. He is alert and oriented. The nurse is with him during my conversation with him. ABDOMEN: Obese, soft without rebound or guarding. CHEST: Clear. NEUROLOGIC: He is alert, oriented. He has no tenderness in his abdomen. LABORATORY DATA Reviewed, showed a hemoglobin down to 7.5 and 23. IMAGING STUDIES Bleeding scan did not show any abnormality. CT scan of the abdomen shows some gallstones. EGD and colonoscopy report is review. ASSESSMENT I had a long discussed with the patient about my discussion with Dr. Dobbins. She wanted me on standby in case she ran into some bleeding difficulties and the patient were to require surgery. He adamantly refused any surgical intervention. He said he feels the bleeding has stopped and he is not going to have any problem with it. He is not getting any blood products. He again reiterated that Dr. Dobbins did the endoscopy and got into some uncontrolled bleeding, he would NOT want any surgery that the Lord would take him at that time. He confirmed this in front of the nurse on numerous occasions and reassured me that he was doing fine and he was of sound mind and he had long decided not to take any blood products as it is against his latter-day. He thanks me for having discussion with him but again declined any surgical intervention even if it was to save his life. At this point, I do not feel comfortable operating on somebody that does not want my services. MD ROMY Calix/ /9:38 PM /9:57 PM [facility]
[2016-07-01] VITALS (17 sets, daily range): BP systolic 99–171; BP diastolic 55–105; PULSE 71–98; RESP 21–32; TEMP 98–99.8; O2SAT 96–99
[2016-07-01 01:21] LABS: HEMATOCRIT 25.2 % (39.0-51.0)
[2016-07-01 01:25] LABS: REVIEW FLAG FINAL
[2016-07-01] MEDS: CHLORHEXIDINE GLUCONATE 2 % 1 PACK (2 CLOTHS)(taper/protocol) TOPICAL SCH (04:00)
[2016-07-01] MEDS: SODIUM CHLOR 0.9% 1000 ML INJ 1,000 ML IV SCH ×3 (05:21→21:25)
[2016-07-01] MEDS: PANTOPRAZOLE INJ 80 MG in SODIUM CHLORIDE 0.9% INJ 100 ML IV SCH ×2 (05:22→21:24)
--- NOTE | 2016-07-01 08:29 | PQ ---
Physician Query Response Document PATIENT: FORTINO MORALES : 1945 ADMIT DATE: 06/29/2016 5:29 AM DISCH DATE: RESPONDING PROVIDER #: [email or web address] QUERY TEXT: CHF Acuity and Type Congestive Heart Failure is documented in the Medical Record. Please document the type and ACUITY (in cludes probable or suspected) Such as: Type: -- Systolic -- Diastolic -- Combined -- Other, please specify ACUITY: -- Acute -- Chronic -- Acute on chronic -- Other, please specify Also please document the underlying cause of the CHF (includes probable or suspected) The patient's Clinical Indicators include: History and physical dated 06/29/16: Cardiomyopathy, CHF systolic EF 30%, AFib/flutter , has PM. Continue home meds. Monitor BP as might be going down 2.2 bleeding. Query created by: Estrella Lee on 06/29/2016 10:43 AM RESPONSE TEXT: Chronic systolic CHF EF 30-35 % ( per ECHO 2013), not with exacerbation at this time Electronically signed by: Jelena Amor MD 07/01/2016 8:25 AM
[2016-07-01] MEDS: SODIUM CHLORIDE 0.9% FLUSH 10 ML FLUSH IV FLUSH SCH ×2 (09:00→21:25)
--- NOTE | 2016-07-01 09:29 | HHI.GIFU ---
GI Follow-up Note Consult Follow-up Subjective: Patient laying in bed comfortably, feeling better.No active bleeding.He kirill he will agree with surgery if necessary , but no blood transfusion.No further bleeding, hb stable Objective: PHYSICAL EXAMINATION: Vitals signs stable No fever Vital Signs Date Time Temp Pulse Resp B/P Pulse Ox O2 Delivery O2 Flow Rate FiO2 07/01/16 09:07 96 Nasal Cannula 2.00 07/01/16 08:31 99.0 82 22 136/66 97 07/01/16 08:27 98 Nasal Cannula 2.00 07/01/16 08:27 71 07/01/16 08:26 98 Nasal Cannula 2.00 07/01/16 06:00 77 07/01/16 04:00 98 Nasal Cannula 2.00 07/01/16 04:00 99.8 75 21 125/60 98 07/01/16 04:00 75 07/01/16 02:00 79 HEENT: Pupils round and reactive to light; normocephalic; atraumatic; no jaundice. Throat is clear. NECK: Neck is supple, no JVD, no lymphadenopathy. CHEST: Chest is clear to auscultation and percussion. CARDIAC: Regular rate and rhythm with no murmur gallop or rubs. ABDOMEN: Soft, nondistended, nontender; no hepatosplenomegaly; bowel sounds are present in all four quadrants. EXTREMITIES: No clubbing, cyanosis, or edema. SKIN: Normal; no rash; no jaundice. 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 Available Data (labs, X- Rays, Procedues) : Laboratory Tests Test 06/29/16 06/29/16 06/29/16 06/30/16 14:50 18:53 23:05 03:34 Hemoglobin 8.9 GM/DL 7.5 GM/DL 7.8 GM/DL 7.5 GM/DL Hematocrit 28.1 % 24.4 % 25.1 % 23.6 % White Blood Count 4.7 TH/MM3 Red Blood Count 3.59 MIL/MM3 Mean Corpuscular Volume 65.8 FL Mean Corpuscular Hemoglobin 20.9 PG Mean Corpuscular Hemoglobin 31.8 % Concent Red Cell Distribution Width 18.5 % Platelet Count 145 TH/MM3 Mean Platelet Volume 8.6 FL Neutrophils (%) (Auto) 45.2 % Lymphocytes (%) (Auto) 33.0 % Monocytes (%) (Auto) 16.6 % Eosinophils (%) (Auto) 4.5 % Basophils (%) (Auto) 0.7 % Neutrophils # (Auto) 2.1 TH/MM3 Lymphocytes # (Auto) 1.6 TH/MM3 Monocytes # (Auto) 0.8 TH/MM3 Eosinophils # (Auto) 0.2 TH/MM3 Basophils # (Auto) 0.0 TH/MM3 CBC Comment AUTO DIFF Differential Comment AUTO DIFF CONFIRMED Platelet Estimate NORMAL Platelet Morphology Comment NORMAL Acanthocytes OCC Sodium Level 143 MEQ/L Potassium Level 3.5 MEQ/L Chloride Level 110 MEQ/L Carbon Dioxide Level 28.6 MEQ/L Anion Gap 4 MEQ/L Blood Urea Nitrogen 20 MG/DL Creatinine 0.96 MG/DL Estimat Glomerular Filtration 94 ML/MIN Rate Random Glucose 89 MG/DL Calcium Level 8.0 MG/DL Iron Level 17 MCG/DL Total Iron Binding Capacity 284 MCG/DL Percent Iron Saturation 6.0 % Ferritin 6 NG/ML Test 06/30/16 06/30/16 06/30/16 07/01/16 12:40 13:15 18:40 01:08 Nasal Screen MRSA (PCR) MRSA NOT DETECTED Hemoglobin 8.1 GM/DL 8.2 GM/DL 7.8 GM/DL Hematocrit 26.9 % 26.7 % 25.2 % ASSESSMENT/PLAN: gi bleeding, source unclear at this time-hb stable anemia iron deficient -hematology on the case 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, 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, possible amenable to endoscopic removal, s/p clip application at the base and epi injections, no indication of active bleeding during endoscopy colon polyps Recommendations iron, Epogen as per hematology full liquid diet we will schedule egd with duodenal polyp removal in or possible tomorrow with surgery stand by in case of massive bleeding, patient states he will agree with surgery if indicated but no blood products , also IR will be notified to be on stand by in case massive bleeding occurs colon polyps will need repeat colonoscopy before discharge capsule endoscopy outpatient discussed in detail with patient -in agreement It was a pleasure seeing Maximus Terry Thank you for this consult. Entered by: Elizabeth Kidd MD July 01, 2016 09:29
--- NOTE | 2016-07-01 09:47 | PD.ONC.PN ---
Subjective Subjective Remarks Tmax 99.8 overnight. Patient states his last BM was yesterday afternoon and he reports there was no bleeding. He feels well today. he wants to know if he can go home. Objective Data Date Time Temp Pulse Resp B/P Pulse Ox O2 Delivery O2 Flow Rate FiO2 07/01/16 09:07 96 Nasal Cannula 2.00 07/01/16 08:31 99.0 82 22 136/66 97 07/01/16 08:27 98 Nasal Cannula 2.00 07/01/16 08:27 71 07/01/16 08:26 98 Nasal Cannula 2.00 07/01/16 06:00 77 07/01/16 04:00 98 Nasal Cannula 2.00 07/01/16 04:00 99.8 75 21 125/60 98 07/01/16 04:00 75 07/01/16 02:00 79 07/01/16 00:00 97 Nasal Cannula 2.00 07/01/16 00:00 99.0 91 32 160/72 97 07/01/16 00:00 91 06/30/16 22:00 80 06/30/16 20:11 98 Nasal Cannula 2.00 06/30/16 20:00 99.0 80 21 159/86 97 06/30/16 20:00 80 06/30/16 20:00 97 Nasal Cannula 2.00 06/30/16 16:00 86 22 156/69 95 06/30/16 16:00 Nasal Cannula 2.00 06/30/16 12:15 75 28 153/72 98 Nasal Cannula 2 06/30/16 12:00 78 27 194/86 99 Nasal Cannula 2 06/30/16 11:45 69 27 168/88 99 Nasal Cannula 2 06/30/16 11:36 98.6 75 27 136/64 93 Nasal Cannula 2 07/01/16 07/01/16 07/01/16 07:00 15:00 23:00 Intake Total 717 ml Output Total 675 ml Balance 42 ml Result Diagram: 07/01/16 0108 06/30/16 0334 Laboratory Results Laboratory Tests Test 06/30/16 06/30/16 06/30/16 07/01/16 12:40 13:15 18:40 01:08 Nasal Screen MRSA (PCR) MRSA NOT DETECTED Hemoglobin 8.1 GM/DL 8.2 GM/DL 7.8 GM/DL Hematocrit 26.9 % 26.7 % 25.2 % Imaging Studies Last 24 hours Impressions GI Bleed Scan Nuclear Medicine 06/30/16 1817 Signed Impressions: Service Date/Time: Thursday, June 30, 2016 17:35 - CONCLUSION: No active GI bleeding identified during the examination. Elmer Shoemaker MD Administered Medications Medications (Trade) Dose Ordered Sig/Issac Route PRN Reason Start Time Stop Time Status Last Admin Dose Admin Pantoprazole Sodium 80 mg/ Sodium Chloride 100 ml @ 10 mls/hr Q10H IV 06/29/16 06:45 07/01/16 05:22 Sodium Chloride (NS 1000 ml Inj) 1,000 ml @ 100 mls/hr Q10H IV 06/29/16 10:00 07/01/16 05:21 Sodium Chloride (NS Flush) 2 ml BID IV FLUSH 06/29/16 21:00 07/01/16 09:00 Temazepam (Restoril) 15 mg HS PRN PO INSOMNIA 06/29/16 09:15 07/01/16 01:09 Epoetin Scott 92522 units 40,000 units Q24H SQ 06/30/16 14:00 07/02/16 13:59 06/30/16 18:34 Iron Sucrose/ Sodium Chloride (Venofer Inj/NS Inj) 110 ml @ 110 mls/hr Q24H IV 06/30/16 15:00 07/04/16 15:59 06/30/16 18:35 Chlorhexidine Gluconate (Chlorhexidine 2% Cloth) 3 pack DAILY@04 TOPICAL 07/01/16 04:00 07/05/16 04:01 07/01/16 04:00 Objective Remarks GENERAL: Elderly male, lying in bed in nad. SKIN: Warm and dry. HEAD: Normocephalic. EYES: No injection or drainage. NECK: Supple, trachea midline. CARDIOVASCULAR: Regular rate and rhythm RESPIRATORY: Breath sounds equal bilaterally. No accessory muscle use. GASTROINTESTINAL: Abdomen soft, non-tender, nondistended. EXTREMITIES: No cyanosis NEUROLOGICAL: awake and alert, normal speech. Assessment/Plan Assessment 70y/o with GIB. Hematology consulted as patient is a Mandaeism with acute GI bleeding and symptomatic anemia. Plan 1. continue IV iron sucrose 2. second day of Procrit 40K units today 3. avoid iatrogenic blood loss through IV draws Attending Statement The exam, history, and the medical decision-making described in the above note were completed with the assistance of the mid-level provider. I reviewed and agree with the findings presented. I attest that I had a [id number] encounter with the patient on the same day, and personally performed and documented my assessment and findings in the medical record. studies consistent with severe iron deficiency with ferritin 6. He will receive a total of 1000 mg of IV iron and on discharge begin iron sulfate 325 mg po bid . Prescription written so he will not forget. nothing else to add and counts will recover if no further bleeding. Elizabeth Villanueva July 01, 2016 09:46 Conrado Salinas MD July 01, 2016 11:41
[2016-07-01] MEDS ORDERED: FERR325T PO (11:39)
[2016-07-01] MEDS: EPOETIN ALFA 40,000 UNITS/ML VIAL SQ SCH (14:00)
--- NOTE | 2016-07-01 14:28 | HHI.CCPN ---
Subjective Remarks/Hospital Course Hospital Course: This is a 70yM who is of Taoism ander with h/o CHF EF 30% and prior MCA stroke, A fib, who presented with syncope and large bloody bowel movements. He is currently being worked up for active GI bleed. GI consulted critical care medicine and asked that the patient be transferred to the ICU for close monitoring in the setting of active GI bleed without the option of transfusion. I talked with Mr. Terry, and he currently denies fatigue or syncope, though these were his presenting symptoms. he denies chest pain, abdominal pain. does still endorse high volume dark red diarrhea. He just arrived from colonoscopy ( results pending). Subjective: 07/01: feels better today. still with persistent diarrhea today. hgb slightly lower. plan for EGD tomorrow. Objective Vital Signs Date Time Temp Pulse Resp B/P Pulse Ox O2 Delivery O2 Flow Rate FiO2 07/01/16 13:30 79 07/01/16 12:00 98 Nasal Cannula 2.00 07/01/16 12:00 98.7 127/55 07/01/16 08:31 22 Intake and Output 06/30/16 06/30/16 07/01/16 08:00 16:00 00:00 Intake Total 787 ml 1500 ml 511 ml Output Total 200 ml 1100 ml 350 ml Balance 587 ml 400 ml 161 ml Result Diagram: 07/01/16 0108 06/30/16 0334 Imaging Last Impressions Abdomen X-Ray 06/29/16 0326 Signed Impressions: Service Date/Time: Wednesday, June 29, 2016 03:41 - CONCLUSION: Benign abdomen. Sherwin Thomson MD Abdomen/Pelvis CT 06/29/16 0000 Signed Impressions: Service Date/Time: Wednesday, June 29, 2016 20:52 - CONCLUSION: Gallstones. Small celiac region lymph node. Renal cysts. Lung base infiltrates. No specific explanation for GI bleed William Jones MD Objective Remarks gen: elderly male, lying in bed, no acute distress heent: mucous membranes moist. neck: no jvd. trachea midline. chest: unlabored. equal chest rise. cv: normal rate, regular rhythm. sinus by telemetry abd: soft, obese, nontender, nondistended, no guarding extr: no peripheral edema. distal pulses 2+ neuro: awake, alert, oriented. follows commands. RASS 0. A/P Assessment and Plan Assessment: 70yM with active Lower GI bleed. Plan for repeat scope tomorrow with polypectomy and gen surg as back-up for catastrophic bleeding. I again had a long conversation with the patient and family. We talked about the only real options for resuscitation are crystalloid or colloid. I introduced the idea of cell-saver, and the family has stated they will look into that as an option. They understand iron is a long-term solution and not an immediate fix. Recommendations: Upper GI Bleed: -- repeat scope tomorrow. -- GI involved. Anemia -- no blood product administration -- hematology following. -- agree with iron. -- would prefer not to check frequent laboratory values, as we are not going to act on these numbers, and we will iatrogenically add to his blood loss. will also recommend checking labs in pediatric tubes. Will remain in the ICU for close monitoring overnight. Critical care medicine will sign-off. will transition back to hospitalist services. please re-consult as needed. Estiven Bae MD July 01, 2016 14:28
[2016-07-01] MEDS: IRON SUCROSE INJ 200 MG in SODIUM CHLORIDE 0.9% INJ 100 ML IV SCH (15:00)
[2016-07-01] MEDS ORDERED: ENALAPRILAT 1.25 MG/ML VIAL IV PUSH PRN (22:30)
[2016-07-01] MEDS: METOPROLOL TARTRATE 50 MG TAB PO SCH (23:10)
[2016-07-02] VITALS (16 sets, daily range): BP systolic 154–188; BP diastolic 69–101; PULSE 64–87; RESP 20–30; TEMP 97.9–99.4; O2SAT 95–100
[2016-07-02] MEDS: CHLORHEXIDINE GLUCONATE 2 % 1 PACK (2 CLOTHS)(taper/protocol) TOPICAL SCH (04:00)
[2016-07-02] MEDS: PANTOPRAZOLE INJ 80 MG in SODIUM CHLORIDE 0.9% INJ 100 ML IV SCH (04:13)
[2016-07-02 06:44] LABS: AUTOMATED NEUTROPHIL # 2.7 TH/MM3 (1.8-7.7); BASOPHIL % 0.7 % (0.0-2.0); EOSINOPHIL # 0.4 TH/MM3 (0-0.4); EOSINOPHIL % 7.5 % (0.0-4.0); HEMATOCRIT 24.3 % (39.0-51.0); LYMPH % 20.2 % (9.0-44.0); MEAN CELL VOLUME 66.7 FL (80.0-100.0); MEAN CORPUSCULAR HEMOGLOBIN 21.3 PG (27.0-34.0); MONO % 19.6 % (0.0-8.0); PLATELET COUNT 150 TH/MM3 (150-450); RED BLOOD COUNT 3.65 MIL/MM3 (4.50-5.90); RED CELL DISTRIBUTION WIDTH 18.6 % (11.6-17.2); WHITE BLOOD COUNT 5.2 TH/MM3 (4.0-11.0)
[2016-07-02 06:52] LABS: HEMO FLAGS AUTO DIFF
[2016-07-02] MEDS: SODIUM CHLOR 0.9% 1000 ML INJ 1,000 ML IV SCH ×2 (08:00→18:00)
[2016-07-02 08:07] LABS: BANDS 2 % (0-6); BASOPHILS 1 % (0-2); CORRECTED NUCLEATED RBC 1 /100 WBC (0-0); EOSINOPHILS 5 % (0-4); MYELOCYTES 1 % (0-0); NEUTROPHIL # MANUAL DIFF 2.8 TH/MM3 (1.8-7.7); POLYS (SEG NEUTROPHILS) 50 % (16-70); WBC DIFF SAMPLE 100
[2016-07-02 08:08] LABS: KERATOCYTES OCC (NORMAL); PLATELET ESTIMATE SMEAR NORMAL (NORMAL); PLATELET MORPHOLOGY NORMAL (NORMAL)
[2016-07-02 08:09] LABS: SCAN/DIFF FINAL DIFF MANUAL
[2016-07-02] MEDS: SODIUM CHLORIDE 0.9% FLUSH 10 ML FLUSH IV FLUSH SCH ×2 (09:00→20:33)
[2016-07-02] MEDS: METOPROLOL TARTRATE 50 MG TAB PO SCH ×2 (09:00→20:33)
[2016-07-02] MEDS ORDERED: PROPOFOL 200 MG/20 ML AMP IV ONE (10:34)
[2016-07-02] MEDS ORDERED: EPINEPHrine HCL (1:10,000) 1 MG/10 ML SYRINGE OTHER ONE (10:40)
[2016-07-02] MEDS ORDERED: ONDANSETRON HCL 4 MG/2 ML VIAL IV PUSH ONE (10:47)
[2016-07-02] MEDS ORDERED: DO NOT ADM ANY ANTICOAGULANT DRUGS PRN (11:10)
--- NOTE | 2016-07-02 11:18 | GIPROC ---
[facility] [address] [facility]. [facility], [address] EGD PROCEDURE REPORT EXAM DATE: 07/02/2016 PATIENT NAME: Maximus Terry MR #: [id number] BIRTHDATE: 1945 ATTENDING: Krystyna Martinez MD ORDER #: [id number] WEAVER HAND: Hill Early and Raegan López STATUS: inpatient INDICATIONS: The patient is a 70 yr old male here for an EGD due to large duodenal bulb polyp 4 cm, removed by snare completely the area was injected with 6 cc of EPI to ensure no bleeding. PROCEDURE PERFORMED: EGD w/ snare technique EGD w/ directed submucosal injection(s), any substance MEDICATIONS: None and Per Anesthesia. TOPICAL ANESTHETIC: none CONSENT: The patient understands the risks and benefits of the procedure and understands that these risks include, but are not limited to: sedation, allergic reaction, infection, perforation and/or bleeding. Alternative means of evaluation and treatment include, among others: physical exam, x-rays, and/or surgical intervention. The patient elects to proceed with this endoscopic procedure. medical equipment was checked for proper function. Hand hygiene and appropriate measures for infection prevention was taken. After the risks, benefits and alternatives of the procedure were thoroughly explained, Informed consent was verified, confirmed and timeout was successfully executed by the treatment team. The patient was anesthetized with topical anesthesia and the Pentax [id number] endoscope was introduced through the mouth and advanced to the second portion of the duodenum. Retroflexed views revealed no abnormalities The gastroscope was then slowly withdrawn and removed. Large duodenal bulb polyp 4 cm removed by snare the site was injected by 6 cc of EPI to avoid any bleed. The endoscopy was otherwise normal. ADVERSE EVENTS: There were no complications. IMPRESSIONS: 1. Large duodenal bulb polyp 4 cm removed by snare the site was injected by 6 cc of EPI to avoid any bleed 2. Normal endoscopy otherwise 3. Retroflexed views revealed no abnormalities RECOMMENDATIONS: 1. Await biopsy results. Biopsy results will not be ready for 7-10 days. If you don't hear from us in two weeks, call our office for biopsy results. 2. Continue PPI 3. Wtach for bleed PATIENT CONDITION: stable DISPOSITION: Inpatient REPEAT EXAM: Return as needed for EGD Krystyna Martinez MD eSigned: Krystyna Martinez MD 07/02/2016 11:17 AM cc: PATIENT NAME: Maximus Terry MR#: [id number]
--- NOTE | 2016-07-02 11:25 | HHI.GIFU ---
Subjective Remarks patient is doing ok no sign of bleed. Objective Vitals I&O Vital Signs Date Time Temp Pulse Resp B/P Pulse Ox O2 Delivery O2 Flow Rate FiO2 07/02/16 09:53 97 Nasal Cannula 2.00 07/02/16 09:30 71 07/02/16 08:00 64 07/02/16 08:00 98.0 77 20 154/74 100 07/02/16 08:00 100 Nasal Cannula 3.00 07/02/16 06:00 68 07/02/16 04:00 100 Nasal Cannula 3.00 07/02/16 04:00 98.3 70 20 159/69 100 07/02/16 04:00 70 07/02/16 02:00 75 07/02/16 00:00 97.9 74 30 177/90 99 07/02/16 00:00 74 07/02/16 00:00 99 Nasal Cannula 2.00 07/01/16 22:00 84 07/01/16 20:00 88 07/01/16 20:00 98.8 88 23 171/105 97 07/01/16 20:00 97 Nasal Cannula 2.00 07/01/16 19:55 99 Nasal Cannula 2.00 07/01/16 18:00 92 07/01/16 17:06 98.0 83 99/71 97 07/01/16 16:00 95 Nasal Cannula 2.00 07/01/16 16:00 98 Nasal Cannula 2.00 07/01/16 16:00 98 07/01/16 14:00 93 07/01/16 13:30 79 07/01/16 12:00 98 Nasal Cannula 2.00 07/01/16 12:00 98.7 127/55 97 I/O 07/01/16 07/01/16 07/01/16 07/02/16 07/02/16 07/02/16 07:00 15:00 23:00 07:00 15:00 23:00 Intake Total 717 ml 2525 ml 1024 ml 458 ml Output Total 675 ml 550 ml 675 ml 250 ml Balance 42 ml 1975 ml 349 ml 208 ml Intake Oral 0 ml 1550 ml 360 ml 0 ml IV Total 717 ml 975 ml 664 ml 458 ml Output Urine Total 675 ml 550 ml 675 ml 250 ml # Bowel Movements 2 0 0 0 Laboratory Laboratory Tests Test 07/02/16 05:49 White Blood Count 5.2 Red Blood Count 3.65 Hemoglobin 7.8 Hematocrit 24.3 Mean Corpuscular Volume 66.7 Mean Corpuscular Hemoglobin 21.3 Mean Corpuscular Hemoglobin 32.0 Concent Red Cell Distribution Width 18.6 Platelet Count 150 Mean Platelet Volume 8.8 Neutrophils (%) (Auto) 52.0 Lymphocytes (%) (Auto) 20.2 Monocytes (%) (Auto) 19.6 Eosinophils (%) (Auto) 7.5 Basophils (%) (Auto) 0.7 Neutrophils # (Auto) 2.7 Lymphocytes # (Auto) 1.0 Monocytes # (Auto) 1.0 Eosinophils # (Auto) 0.4 Basophils # (Auto) 0.0 CBC Comment AUTO DIFF Differential Total Cells 100 Counted Neutrophils % (Manual) 50 Band Neutrophils % 2 Lymphocytes % 24 Monocytes % 17 Eosinophils % 5 Basophils % 1 Neutrophils # (Manual) 2.8 Myelocytes 1 Nucleated Red Blood Cells 1 Differential Comment FINAL DIFF MANUAL Platelet Estimate NORMAL Platelet Morphology Comment NORMAL Polychromasia 2.0 Keratocytes OCC Physical Exam HEENT: Normocephalic; atraumatic CHEST: CTA. CARDIAC: RRR. ABDOMEN: Soft, nondistended, nontender; no hepatosplenomegaly; bowel sounds are present in all four quadrants. Passing large amount of maroon blood from rectum EXTREMITIES: No clubbing, cyanosis, or edema. SKIN: Normal; no rash; no jaundice. FOOD SERVICE: No focal deficits; alert and oriented times three. Assessment and Plan Plan ASSESSMENT: - GIB, Bloody stool. Pt woke up 2am with sudden urge to move his bowels with associated nausea, dry heaving, had 3 maroon bloody stools on . Abdomen/Pelvis CT (06/29/16)----> Gallstones. Small celiac region lymph node. Renal cysts. Lung base infiltrates. No specific explanation for GI bleed. S/P EGD (06/30/16)----> 1. Large amount of food in stomach suggesting gastroparesis polypoid mass in duodenal bulb-biopsy no blood seen in stomach 2. Retroflexed views revealed a hiatal hernia. Plan was for colonoscopy today and EUS Saturday for further evaluation of polypoid duodenal mass. Pt started having significant GI bleeding this am- large amount of red blood from rectum. Clinically stable at this time. VS- 175/94, 72, 16, 93% . Plan is for colonoscopy ISAIAH. Called and spoke to Dr. Beltre about possible need for angiogram if bleeding unable to be controlled endoscopically, Pt is Jehovah witness and unable to receive blood. Will transfer to [facility]. Spoke to Dr. Ginger Bae. Hematology consulted. .07/10.. Stat HH ordered for q6h once blood complete. NPO. Protonix. - Acute blood loss anemia. 10.3/32.8----> .07/10.. PT Jehovah Witness, no blood products. Consult hematology for further assistance. - Polypoid duodenal mass. Pathology pending. Will need EUS. - Near syncopal episode, likely vasovagal- occurred while having a bowel movement. - Aflutter, Hx CVA. Pt on Coumadin. States he last took , INR 1.2. - CHF, COPD per primary - PT IS A JEHOVAH WITNESS AND DOES NOT WANT ANY BLOOD PRODUCTS 07-02-17 doing ok, no sign of active bleed, had EGD with removal of big 4-5 cm polyp in duodenal bulb, without any bleed PLAN: - clear liquid - Monitor HH - Protonix 40mg iV BID - NO BLOOD PRODUCTS, JEHOVAH WITNESS - wtach for bleed Krystyna Martinez MD July 02, 2016 11:25
--- NOTE | 2016-07-02 12:42 | HHI.PR ---
Subjective Subjective Notes DAILY PROGRESS NOTE FOR SURGICAL ATTENDING, DR. GAVINO HERNANDEZ Resting in bed Patient states that he would agree to have a blood-less surgery. He goes on to clarify that he would not refuses surgery but he would not want to have blood products. Objective Vitals/I&O Vital Signs Date Time Temp Pulse Resp B/P Pulse Ox O2 Delivery O2 Flow Rate FiO2 07/02/16 12:31 98.3 72 20 188/101 95 07/02/16 12:28 Nasal Cannula 3.00 Labs Laboratory Tests Test 07/02/16 05:49 White Blood Count 5.2 Red Blood Count 3.65 Hemoglobin 7.8 Hematocrit 24.3 Mean Corpuscular Volume 66.7 Mean Corpuscular Hemoglobin 21.3 Mean Corpuscular Hemoglobin 32.0 Concent Red Cell Distribution Width 18.6 Platelet Count 150 Mean Platelet Volume 8.8 Neutrophils (%) (Auto) 52.0 Lymphocytes (%) (Auto) 20.2 Monocytes (%) (Auto) 19.6 Eosinophils (%) (Auto) 7.5 Basophils (%) (Auto) 0.7 Neutrophils # (Auto) 2.7 Lymphocytes # (Auto) 1.0 Monocytes # (Auto) 1.0 Eosinophils # (Auto) 0.4 Basophils # (Auto) 0.0 CBC Comment AUTO DIFF Differential Total Cells 100 Counted Neutrophils % (Manual) 50 Band Neutrophils % 2 Lymphocytes % 24 Monocytes % 17 Eosinophils % 5 Basophils % 1 Neutrophils # (Manual) 2.8 Myelocytes 1 Nucleated Red Blood Cells 1 Differential Comment FINAL DIFF MANUAL Platelet Estimate NORMAL Platelet Morphology Comment NORMAL Polychromasia 2.0 Keratocytes OCC Radiology NOTE FOR SURGICAL ATTENDING, DR. GAVINO HERNANDEZ I agree with above assessment and plan. The exam, history, and the medical decision-making described in the above note were completed with the assistance of the mid-level provider. I reviewed and agree with the findings presented. I attest that I had a [id number] encounter with the patient on the same day, and personally performed and documented my assessment and findings in the medical record. Last Impressions GI Bleed Scan Nuclear Medicine 06/30/164 Signed Impressions: Service Date/Time: Thursday, June 30, 2016 17:35 - CONCLUSION: No active GI bleeding identified during the examination. Elmer Shoemaker MD Abdomen X-Ray 06/29/16 0326 Signed Impressions: Service Date/Time: Wednesday, June 29, 2016 03:41 - CONCLUSION: Benign abdomen. Sherwin Thomson MD Abdomen/Pelvis CT 06/29/16 0000 Signed Impressions: Service Date/Time: Wednesday, June 29, 2016 20:52 - CONCLUSION: Gallstones. Small celiac region lymph node. Renal cysts. Lung base infiltrates. No specific explanation for GI bleed William Jones MD Cardiovascular: Regular Lungs: Clear Abdomen: Non-distended, Non-tender Extremities: No edema A/P Assessment and Plan 70 year old male with LGIB -Hmg today is 7.8; Jehovah Witness--no blood products -No signs of any active bleeding -Clear liquids -Protonix gtt -Spoke with Ashley WICK at bedside Attending Statement NOTE FOR SURGICAL ATTENDING, DR. GAVINO HERNANDEZ I agree with above assessment and plan. The exam, history, and the medical decision-making described in the above note were completed with the assistance of the mid-level provider. I reviewed and agree with the findings presented. I attest that I had a [id number] encounter with the patient on the same day, and personally performed and documented my assessment and findings in the medical record. Reviewed the Dr. Hayden Lewis I didn't snow showing that he remove the polypoid lesion without any bleeding I doubt my services will be required The following services were provided during this hospital visit: Chart data review, vital sign assessments/reviewing monitor data Review of consultations notes if present. Medication orders/review and/or management Ordering and/or reviewing lab tests Ordering and/or interpreting/reviewing x-rays and/or diagnostic studies Care of the patient and discussion of the patient with the care team Documentation time To help prompt me to consider important information that might be impacting today's encounter and assessment, information from prior notes written by myself or my colleagues may have been "brought forward/copy and pasted" into today's note. Temi Childress July 02, 2016 12:42 Gavino Hernandez MD July 02, 2016 18:05
--- NOTE | 2016-07-02 12:51 | HHI.PR ---
Subjective Remarks Patient agrees to surgery now however without blood transfusion. No active bleeding at this time. He is receiving venofer IV His BP is noted very high. The patient is telling me he feels anxious because of impending surgery. However he said he doesn't want any medications. He did not have any bowel movements or bleeding. Denies fevers or chills. No chest pain or shortness of breath. He feels tired. Objective Vitals Vital Signs Date Time Temp Pulse Resp B/P Pulse Ox O2 Delivery O2 Flow Rate FiO2 07/02/16 12:31 98.3 72 20 188/101 95 07/02/16 12:28 100 Nasal Cannula 3.00 07/02/16 12:28 83 07/02/16 11:35 79 16 155/75 98 07/02/16 11:15 73 14 184/91 97 Nasal Cannula 2 07/02/16 11:08 98.0 81 16 199/91 97 07/02/16 09:53 97 Nasal Cannula 2.00 07/02/16 09:30 71 07/02/16 08:00 64 07/02/16 08:00 98.0 77 20 154/74 100 07/02/16 08:00 100 Nasal Cannula 3.00 07/02/16 06:00 68 07/02/16 04:00 100 Nasal Cannula 3.00 07/02/16 04:00 98.3 70 20 159/69 100 07/02/16 04:00 70 07/02/16 02:00 75 07/02/16 00:00 97.9 74 30 177/90 99 07/02/16 00:00 74 07/02/16 00:00 99 Nasal Cannula 2.00 07/01/16 22:00 84 07/01/16 20:00 88 07/01/16 20:00 98.8 88 23 171/105 97 07/01/16 20:00 97 Nasal Cannula 2.00 07/01/16 19:55 99 Nasal Cannula 2.00 07/01/16 18:00 92 07/01/16 17:06 98.0 83 99/71 97 07/01/16 16:00 95 Nasal Cannula 2.00 07/01/16 16:00 98 Nasal Cannula 2.00 07/01/16 16:00 98 07/01/16 14:00 93 07/01/16 13:30 79 I/O 07/01/16 07/01/16 07/01/16 07/02/16 07/02/16 07/02/16 07:00 15:00 23:00 07:00 15:00 23:00 Intake Total 717 ml 2525 ml 1024 ml 458 ml 400 ml Output Total 675 ml 550 ml 675 ml 250 ml 50 ml Balance 42 ml 1975 ml 349 ml 208 ml 350 ml Intake Oral 0 ml 1550 ml 360 ml 0 ml IV Total 717 ml 975 ml 664 ml 458 ml Other 400 ml Output Urine Total 675 ml 550 ml 675 ml 250 ml 50 ml # Voids 1 # Bowel Movements 2 0 0 0 Result Diagram: 07/02/16 0549 06/30/16 0334 Imaging Last Impressions GI Bleed Scan Nuclear Medicine 06/30/161816 Signed Impressions: Service Date/Time: Thursday, June 30, 2016 17:35 - CONCLUSION: No active GI bleeding identified during the examination. Elmer Shoemaker MD Abdomen X-Ray 06/29/16 0326 Signed Impressions: Service Date/Time: Wednesday, June 29, 2016 03:41 - CONCLUSION: Benign abdomen. Sherwin Thomson MD Abdomen/Pelvis CT 06/29/16 0000 Signed Impressions: Service Date/Time: Wednesday, June 29, 2016 20:52 - CONCLUSION: Gallstones. Small celiac region lymph node. Renal cysts. Lung base infiltrates. No specific explanation for GI bleed William Jones MD Objective Remarks GENERAL: This is a well-nourished, well-developed patient, in no apparent distress. SKIN: No rashes, ecchymoses or lesions. Cool and dry. HEAD: Atraumatic. Normocephalic. No temporal or scalp tenderness. EYES: Pupils equal round and reactive. Extraocular motions intact. No scleral icterus. No injection or drainage. ENT: Nose without bleeding, purulent drainage or septal hematoma. Throat without erythema, tonsillar hypertrophy or exudate. Uvula midline. Airway patent. NECK: Trachea midline. No JVD or lymphadenopathy. Supple, nontender, no meningeal signs. CARDIOVASCULAR: Regular rate and rhythm without murmurs, gallops, or rubs. RESPIRATORY: Clear to auscultation. Breath sounds equal bilaterally. No wheezes , rales, or rhonchi. GASTROINTESTINAL: Abdomen soft, non-tender, nondistended. No hepato-splenomegaly , or palpable masses. No guarding. MUSCULOSKELETAL: Extremities without clubbing, cyanosis, or edema. No joint tenderness, effusion, or edema noted. No calf tenderness. Negative Homans sign bilaterally. NEUROLOGICAL: Awake and alert. Cranial nerves grossly intact. Motor and sensory grossly within normal limits. Muscle strength 4/5 right hand, rest normal strengths. Normal speech. A/P Assessment and Plan GIB Anemia 2/2 GIB . HGB 10.3 on admission dropped to 7.3. Duodenal mass S/p EGD and colonoscopy: large amount of food in the stomach gastroparesis polypoid mass in duodenal bulb - biopsy pending. Patient agrees to surgery however he doesn't want any blood products. Monitor H/H so far stable. colon with polyps not removed 2/2 bleeding, needs repeat colonoscopy per GI Hiatal hernia Receiving venofer IV at this time. CT abd/pelvis patient with active bleeding scan and also had a bloody BM in the morning. Needs repeat EGD/colonoscopy per GI , patient will be intubated for this procedure ant then will go to ICU. patient was transfered to ICU . Appreciate GI recommendations GIB H/H so far stable. Monitor and transfuse if symptomatic or HGB < 7 GI consulted. Start PPI Hold coumadin The patient is a Jehovah witness and is refusing all blood products. COPD without exacerbation - Restart home meds. keep on oxygen to keep O2 sat > 90% Cardiomyopathy, CHF systolic EF 30%, AFib/flutter , has PM. Continue home meds. Monitor BP as might be going down 2.2 bleeding. CVA. PT eval. Continue home meds. -DVT prophylaxis SCD. CI chemical ppx 2/2 GIB Discussed with the patient, nurse, GI service. Discharge plan: Pending improvement clearance form consultants. Jelena Amor MD July 02, 2016 12:51
[2016-07-02] MEDS: IRON SUCROSE INJ 200 MG in SODIUM CHLORIDE 0.9% INJ 100 ML IV SCH (15:00)
[2016-07-02] MEDS: PANTOPRAZOLE SODIUM 40 MG VIAL IV PUSH SCH (20:33)
[2016-07-03] VITALS (13 sets, daily range): BP systolic 122–158; BP diastolic 59–84; PULSE 65–98; RESP 18–29; TEMP 98.5–100.4; O2SAT 93–98
[2016-07-03] MEDS: CHLORHEXIDINE GLUCONATE 2 % 1 PACK (2 CLOTHS)(taper/protocol) TOPICAL SCH (04:00)
[2016-07-03] MEDS: SODIUM CHLOR 0.9% 1000 ML INJ 1,000 ML IV SCH (05:53)
[2016-07-03 06:20] LABS: AUTOMATED NEUTROPHIL # 4.1 TH/MM3 (1.8-7.7); BASOPHIL % 0.7 % (0.0-2.0); EOSINOPHIL # 0.4 TH/MM3 (0-0.4); EOSINOPHIL % 5.2 % (0.0-4.0); LYMPH % 18.8 % (9.0-44.0); LYMPHOCYTE # 1.3 TH/MM3 (1.0-4.8); MEAN CELL VOLUME 67.5 FL (80.0-100.0); MEAN CORPUSCULAR HGB CONC 31.1 % (32.0-36.0); MONO % 17.7 % (0.0-8.0); NEUT % 57.6 % (16.0-70.0); PLATELET COUNT 160 TH/MM3 (150-450); RED BLOOD COUNT 3.55 MIL/MM3 (4.50-5.90); RED CELL DISTRIBUTION WIDTH 18.8 % (11.6-17.2); WHITE BLOOD COUNT 7.2 TH/MM3 (4.0-11.0)
[2016-07-03 06:38] LABS: HEMO FLAGS AUTO DIFF
--- NOTE | 2016-07-03 07:37 | HHI.PR ---
Subjective Remarks feesl improved today. BP is better controlled. Says she did not have any BM. Thinks bleeding has stopped. No headache, change in vision, chest pain, palpitations. Says he feels congested and he has a dry cough, says he take lasix at home. He has no fevers or chills. No n/v/d/c. Objective Vitals Vital Signs Date Time Temp Pulse Resp B/P Pulse Ox O2 Delivery O2 Flow Rate FiO2 07/03/16 02:00 71 07/03/16 00:00 72 07/03/16 00:00 98.5 72 23 149/66 96 07/03/16 00:00 96 Nasal Cannula 2.00 07/02/16 22:00 68 07/02/16 22:00 68 07/02/16 20:00 99.4 66 20 177/88 99 07/02/16 20:00 99 Nasal Cannula 2.00 07/02/16 20:00 66 07/02/16 19:02 100 Nasal Cannula 2.00 07/02/16 18:21 72 07/02/16 16:19 98.8 82 20 /98 95 07/02/16 16:18 87 07/02/16 16:17 98 Nasal Cannula 3.00 07/02/16 14:23 76 07/02/16 12:31 98.3 72 20 188/101 95 07/02/16 12:28 100 Nasal Cannula 3.00 07/02/16 12:28 83 07/02/16 11:35 79 16 155/75 98 07/02/16 11:15 73 14 184/91 97 Nasal Cannula 2 07/02/16 11:08 98.0 81 16 199/91 97 07/02/16 09:53 97 Nasal Cannula 2.00 07/02/16 09:30 71 07/02/16 08:00 64 07/02/16 08:00 98.0 77 20 154/74 100 07/02/16 08:00 100 Nasal Cannula 3.00 I/O 07/02/16 07/02/16 07/02/16 07/03/16 07/03/16 07/03/16 07:00 15:00 23:00 07:00 15:00 23:00 Intake Total 458 ml 700 ml 1150 ml Output Total 250 ml 550 ml 225 ml Balance 208 ml 150 ml 925 ml Intake Oral 0 ml 0 ml 1150 ml IV Total 458 ml 300 ml 0 ml Other 400 ml Output Urine Total 250 ml 550 ml 225 ml # Voids 1 1 # Bowel Movements 0 0 0 Result Diagram: 07/03/16 0552 06/30/16 0334 Imaging Last Impressions GI Bleed Scan Nuclear Medicine 06/30/16 1817 Signed Impressions: Service Date/Time: Thursday, June 30, 2016 17:35 - CONCLUSION: No active GI bleeding identified during the examination. Elmer Shoemaker MD Abdomen X-Ray 06/29/16 0326 Signed Impressions: Service Date/Time: Wednesday, June 29, 2016 03:41 - CONCLUSION: Benign abdomen. Sherwin Thomson MD Abdomen/Pelvis CT 06/29/16 0000 Signed Impressions: Service Date/Time: Wednesday, June 29, 2016 20:52 - CONCLUSION: Gallstones. Small celiac region lymph node. Renal cysts. Lung base infiltrates. No specific explanation for GI bleed William Jones MD Objective Remarks GENERAL: This is a well-nourished, well-developed patient, in no apparent distress. SKIN: No rashes, ecchymoses or lesions. Cool and dry. HEAD: Atraumatic. Normocephalic. No temporal or scalp tenderness. EYES: Pupils equal round and reactive. Extraocular motions intact. No scleral icterus. No injection or drainage. ENT: Nose without bleeding, purulent drainage or septal hematoma. Throat without erythema, tonsillar hypertrophy or exudate. Uvula midline. Airway patent. NECK: Trachea midline. No JVD or lymphadenopathy. Supple, nontender, no meningeal signs. CARDIOVASCULAR: Regular rate and rhythm without murmurs, gallops, or rubs. RESPIRATORY: Bibasilar crackles. No accsosory muscle use. No wheezes, rales, or rhonchi. GASTROINTESTINAL: Abdomen soft, non-tender, nondistended. No hepato-splenomegaly , or palpable masses. No guarding. MUSCULOSKELETAL: Extremities without clubbing, cyanosis. Trace LE edema. No joint tenderness, effusion, or edema noted. No calf tenderness. Negative Homans sign bilaterally. NEUROLOGICAL: Awake and alert. Cranial nerves grossly intact. Motor and sensory grossly within normal limits. Muscle strength 4/5 right hand, rest normal strengths. Normal speech. A/P Assessment and Plan GIB Anemia 2/2 GIB . HGB 10.3 on admission dropped to 7.3. Duodenal mass S/p EGD and colonoscopy: large amount of food in the stomach gastroparesis polypoid mass in duodenal bulb - biopsy pending. Patient agrees to surgery however he doesn't want any blood products. Monitor H/H so far stable. colon with polyps not removed 2/2 bleeding, needs repeat colonoscopy per GI Hiatal hernia Receiving venofer IV at this time. CT abd/pelvis patient with active bleeding scan and also had a bloody BM in the morning. Needs repeat EGD/colonoscopy per GI , patient will be intubated for this procedure ant then will go to ICU. patient was transfered to ICU . Appreciate GI recommendations GIB H/H so far stable. Monitor and transfuse if symptomatic or HGB < 7 GI consulted. Start PPI Hold coumadin The patient is a Jehovah witness and is refusing all blood products. Hem/onc consulted, appreciate recommendations He is currently receiving Venofer IV Receiving procrit COPD without exacerbation - Restart home meds. keep on oxygen to keep O2 sat > 90% Uncontrolled HTN: continue metoprolol, restart lasix po 40 mg po daily. Monitor urine output. Monitor closely BP. IV labetalol ,hydralazin prn Cardiomyopathy, CHF systolic EF 30%, AFib/flutter , has PM. Continue home meds. Monitor BP as might be going down 2.2 bleeding. Currently he is uncontrolled HTN Wilkl do CXR as patient with cpugh and bibasilar crackles on physical exam and trace LE edema. Add incentive spirometry CVA. PT eval. Continue home meds. -DVT prophylaxis SCD. CI chemical ppx 2/2 GIB Discussed with the patient, nurse, GI service. Discharge plan: Pending improvement clearance form consultants. Transfer to med/surg floor , receiving IV infusion venofer. Restarted lasix as bibasilar crackles on exam and BP is high. patient has a duodenal mass that neds at one point surgical resection. Patient however is a Jehovah witness and is refusing all blood products. Patient HGB dropped from baseline. Hem onc recommends venofer and procrit patient last dose of IV venofer is 07/04/16. Patient can be discharged home to continue ferrous sulfate 325 mg po bid as OP. Can return for surgery in 2-4 weeks, hopefully his HGB/HTC improves. Also GI wants to repeat colonoscopy. Jelena Amor MD July 03, 2016 07:37
[2016-07-03] MEDS ORDERED: POTASSIUM CHLORIDE 20 MEQ CONTROLLED RELEASE TAB PO ONE (07:45)
[2016-07-03] MEDS ORDERED: LABETALOL HCL 100 MG/20 ML VIAL IV PUSH PRN (07:45)
[2016-07-03] MEDS ORDERED: hydrALAZINE HCL 20 MG/ML VIAL IV PUSH PRN (07:45)
[2016-07-03 07:53] LABS: BANDS 4 % (0-6); BASOPHILS 2 % (0-2); CORRECTED NUCLEATED RBC 5 /100 WBC (0-0); EOSINOPHILS 8 % (0-4); METAMYELOCYTES 1 % (0-1); NEUTROPHIL # MANUAL DIFF 5.2 TH/MM3 (1.8-7.7); PLATELET ESTIMATE SMEAR NORMAL (NORMAL); PLATELET MORPHOLOGY NORMAL (NORMAL); POLYS (SEG NEUTROPHILS) 67 % (16-70); SCAN/DIFF FINAL DIFF MANUAL; WBC DIFF SAMPLE 100
[2016-07-03 07:54] LABS: OVALOCYTES 1+ (NORMAL)
[2016-07-03 07:55] LABS: ACANTHOCYTES OCC (NORMAL)
[2016-07-03] MEDS ORDERED: PILL SPLITTER OTHER PRN (08:00)
[2016-07-03] MEDS: PANTOPRAZOLE SODIUM 40 MG VIAL IV PUSH SCH ×2 (08:32→22:44)
[2016-07-03] MEDS: SODIUM CHLORIDE 0.9% FLUSH 10 ML FLUSH IV FLUSH SCH (08:32)
[2016-07-03] MEDS: METOPROLOL TARTRATE 50 MG TAB PO SCH ×2 (08:33→22:44)
[2016-07-03] MEDS: LISINOPRIL 5 MG TAB PO SCH (08:37)
[2016-07-03] MEDS: FUROSEMIDE 40 MG TAB PO SCH (08:37)
[2016-07-03] MEDS ORDERED: FUROSEMIDE 40 MG TAB PO SCH (09:00)
--- NOTE | 2016-07-03 10:23 | RADRPT ---
EXAM DATE/TIME: 07/03/2016 09:48 [facility] COMPARISON: CHEST SINGLE AP, February 17, 2014, 21:00. INDICATIONS : Cough. MEDICAL HISTORY : Cardiovascular disease. Cerebrovascular disease. Hypertension. Congestive heart failure. SURGICAL HISTORY : Pacemaker. Appendectomy. Ankle, right. ENCOUNTER: Initial ACUITY: 4 - 6 days PAIN SCORE: 0/10 LOCATION: Bilateral chest FINDINGS: A single view of the chest demonstrates elevation right hemidiaphragm. Heart enlarged. Left-sided def ibrillator with intact leads. Osseous structures are intact. CONCLUSION: 1. Chronic elevation right hemidiaphragm. 2. Cardiomegaly. Miah Sawyer MD on July 03, 2016 at 10:19 Board Certified Radiologist. This report was verified electronically.
[2016-07-03] MEDS: IRON SUCROSE INJ 200 MG in SODIUM CHLORIDE 0.9% INJ 100 ML IV SCH (14:15)
--- NOTE | 2016-07-03 15:05 | HHI.GIFU ---
Subjective Remarks Pt resting comfortably in bed. he is asking for food. No BM in 2 days. No sign of bleeding. No pain, n/v. Objective Vitals I&O Vital Signs Date Time Temp Pulse Resp B/P Pulse Ox O2 Delivery O2 Flow Rate FiO2 07/03/16 14:00 74 07/03/16 12:00 97 Nasal Cannula 2.00 07/03/16 12:00 65 07/03/16 12:00 98.8 65 21 146/69 97 07/03/16 10:00 69 07/03/16 08:56 95 Nasal Cannula 2.00 07/03/16 08:00 75 07/03/16 08:00 99.0 75 29 158/84 98 07/03/16 08:00 98 Nasal Cannula 2.00 07/03/16 06:00 72 07/03/16 04:00 97 Nasal Cannula 2.00 07/03/16 04:00 68 07/03/16 04:00 99.6 68 22 150/68 97 07/03/16 02:00 71 07/03/16 00:00 72 07/03/16 00:00 98.5 72 23 149/66 96 07/03/16 00:00 96 Nasal Cannula 2.00 07/02/16 22:00 68 07/02/16 22:00 68 07/02/16 20:00 99.4 66 20 177/88 99 07/02/16 20:00 99 Nasal Cannula 2.00 07/02/16 20:00 66 07/02/16 19:02 100 Nasal Cannula 2.00 07/02/16 18:21 72 07/02/16 16:19 98.8 82 20 /98 95 07/02/16 16:18 87 07/02/16 16:17 98 Nasal Cannula 3.00 I/O 07/02/16 07/02/16 07/02/16 07/03/16 07/03/16 07/03/16 07:00 15:00 23:00 07:00 15:00 23:00 Intake Total 458 ml 700 ml 1150 ml 0 ml 348 ml Output Total 250 ml 550 ml 225 ml 650 ml 1450 ml Balance 208 ml 150 ml 925 ml -650 ml -1102 ml Intake Oral 0 ml 0 ml 1150 ml 0 ml 100 ml IV Total 458 ml 300 ml 0 ml 0 ml 248 ml Other 400 ml Output Urine Total 250 ml 550 ml 225 ml 650 ml 1450 ml # Voids 1 1 # Bowel Movements 0 0 0 0 0 Laboratory Laboratory Tests Test 07/03/16 05:52 White Blood Count 7.2 Red Blood Count 3.55 Hemoglobin 7.5 Hematocrit 24.0 Mean Corpuscular Volume 67.5 Mean Corpuscular Hemoglobin 21.0 Mean Corpuscular Hemoglobin 31.1 Concent Red Cell Distribution Width 18.8 Platelet Count 160 Mean Platelet Volume 8.4 Neutrophils (%) (Auto) 57.6 Lymphocytes (%) (Auto) 18.8 Monocytes (%) (Auto) 17.7 Eosinophils (%) (Auto) 5.2 Basophils (%) (Auto) 0.7 Neutrophils # (Auto) 4.1 Lymphocytes # (Auto) 1.3 Monocytes # (Auto) 1.3 Eosinophils # (Auto) 0.4 Basophils # (Auto) 0.0 CBC Comment AUTO DIFF Differential Total Cells 100 Counted Neutrophils % (Manual) 67 Band Neutrophils % 4 Lymphocytes % 13 Monocytes % 5 Eosinophils % 8 Basophils % 2 Neutrophils # (Manual) 5.2 Metamyelocytes 1 Nucleated Red Blood Cells 5 Differential Comment FINAL DIFF MANUAL Platelet Estimate NORMAL Platelet Morphology Comment NORMAL Ovalocytes 1+ Acanthocytes OCC Imaging Last Impressions Chest X-Ray 07/03/16 0000 Signed Impressions: Service Date/Time: Sunday, July 03, 2016 09:48 - CONCLUSION: 1. Chronic elevation right hemidiaphragm. 2. Cardiomegaly. Miah Sawyer MD GI Bleed Scan Nuclear Medicine 06/30/16 1817 Signed Impressions: Service Date/Time: Thursday, June 30, 2016 17:35 - CONCLUSION: No active GI bleeding identified during the examination. Elmer Shoemaker MD Abdomen X-Ray 06/29/16 0326 Signed Impressions: Service Date/Time: Wednesday, June 29, 2016 03:41 - CONCLUSION: Benign abdomen. Sherwin Thomson MD Abdomen/Pelvis CT 06/29/16 0000 Signed Impressions: Service Date/Time: Wednesday, June 29, 2016 20:52 - CONCLUSION: Gallstones. Small celiac region lymph node. Renal cysts. Lung base infiltrates. No specific explanation for GI bleed William Jones MD Physical Exam HEENT: Normocephalic; atraumatic CHEST: CTA. CARDIAC: RRR. ABDOMEN: Soft, protuberant, nontender; no hepatosplenomegaly; bowel sounds are present in all four quadrants. EXTREMITIES: No clubbing, cyanosis, or edema. SKIN: Normal; no rash; no jaundice. 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 Assessment and Plan Plan ASSESSMENT: - GIB, Bloody stool. s/p EGD 07-02-16 --> large duodenal polyp 4cm removed by snare, site injected with epi 6cc to avoid bleed, normal EGD otehrwise. Pt woke up 2am with sudden urge to move his bowels with associated nausea, dry heaving, had 3 maroon bloody stools on . Abdomen/Pelvis CT (06/29/16)----> Gallstones. Small celiac region lymph node. Renal cysts. Lung base infiltrates. No specific explanation for GI bleed. S/P EGD (06/30/16)----> 1. Large amount of food in stomach suggesting gastroparesis polypoid mass in duodenal bulb-biopsy no blood seen in stomach 2. Retroflexed views revealed a hiatal hernia. Plan was for colonoscopy today and EUS Saturday for further evaluation of polypoid duodenal mass. Pt started having significant GI bleeding this am- large amount of red blood from rectum. Clinically stable at this time. VS- 175/94, 72, 16, 93% . Plan is for colonoscopy ISAIAH. Called and spoke to Dr. Beltre about possible need for angiogram if bleeding unable to be controlled endoscopically, Pt is Jehovah witness and unable to receive blood. Will transfer to [facility] [place]. Spoke to Dr. Ginger Bae. Hematology consulted. 7.23.6. Stat HH ordered for q6h once blood complete. Protonix. - Acute blood loss anemia. 10.3/32.8----> 7.5/24.0. PT Jehovah Witness, no blood products. Consult hematology for further assistance. - Polypoid duodenal mass. Pathology pending. Will need EUS. - Near syncopal episode, likely vasovagal- occurred while having a bowel movement. - Aflutter, Hx CVA. Pt on Coumadin. States he last took , INR 1.2. - CHF, COPD per primary - PT IS A JEHOVAH WITNESS AND DOES NOT WANT ANY BLOOD PRODUCTS PLAN: - CASIMIRO - Monitor HH - Protonix 40mg iV BID - NO BLOOD PRODUCTS, JEHOVAH WITNESS - watch for bleed This pt seen by Dr Littlejohn and myself and this note is written on his behalf Bhargavi Mota July 03, 2016 15:05
[2016-07-03] MEDS: POTASSIUM CHLORIDE 20 MEQ CONTROLLED RELEASE TAB PO SCH (22:44)
[2016-07-04] VITALS (9 sets, daily range): BP systolic 112–144; BP diastolic 55–66; PULSE 65–77; RESP 18–20; TEMP 97.8–98.6; O2SAT 95–99
[2016-07-04] MEDS: SODIUM CHLORIDE 0.9% FLUSH 10 ML FLUSH IV FLUSH SCH ×3 (00:07→22:34)
[2016-07-04] MEDS: CHLORHEXIDINE GLUCONATE 2 % 1 PACK (2 CLOTHS)(taper/protocol) TOPICAL SCH (03:48)
[2016-07-04 06:13] LABS: AUTOMATED NEUTROPHIL # 3.7 TH/MM3 (1.8-7.7); BASOPHIL # 0.1 TH/MM3 (0-0.2); BASOPHIL % 0.8 % (0.0-2.0); EOSINOPHIL # 0.3 TH/MM3 (0-0.4); HEMATOCRIT 25.1 % (39.0-51.0); LYMPH % 24.1 % (9.0-44.0); LYMPHOCYTE # 1.7 TH/MM3 (1.0-4.8); MEAN CELL VOLUME 67.1 FL (80.0-100.0); MEAN CORPUSCULAR HEMOGLOBIN 21.2 PG (27.0-34.0); MEAN CORPUSCULAR HGB CONC 31.7 % (32.0-36.0); MONO % 19.7 % (0.0-8.0); NEUT % 51.4 % (16.0-70.0); PLATELET COUNT 177 TH/MM3 (150-450); RED BLOOD COUNT 3.75 MIL/MM3 (4.50-5.90); RED CELL DISTRIBUTION WIDTH 19.1 % (11.6-17.2); WHITE BLOOD COUNT 7.1 TH/MM3 (4.0-11.0)
[2016-07-04 06:14] LABS: HEMO FLAGS AUTO DIFF
[2016-07-04 06:54] LABS: MAGNESIUM 2.1 MG/DL (1.5-2.5); POTASSIUM 4.5 MEQ/L (3.5-5.1)
[2016-07-04 08:05] LABS: BANDS 7 % (0-6); BASOPHILS 3 % (0-2); CORRECTED NUCLEATED RBC 2 /100 WBC (0-0); EOSINOPHILS 4 % (0-4); METAMYELOCYTES 1 % (0-1); NEUTROPHIL # MANUAL DIFF 4.1 TH/MM3 (1.8-7.7); PLATELET ESTIMATE SMEAR NORMAL (NORMAL); PLATELET MORPHOLOGY NORMAL (NORMAL); POLYS (SEG NEUTROPHILS) 50 % (16-70); SCAN/DIFF FINAL DIFF MANUAL; WBC DIFF SAMPLE 100
[2016-07-04] MEDS: LISINOPRIL 5 MG TAB PO SCH (09:41)
[2016-07-04] MEDS: POTASSIUM CHLORIDE 20 MEQ CONTROLLED RELEASE TAB PO SCH ×2 (09:42→22:33)
[2016-07-04] MEDS: METOPROLOL TARTRATE 50 MG TAB PO SCH ×2 (09:42→22:32)
[2016-07-04] MEDS: PANTOPRAZOLE SODIUM 40 MG VIAL IV PUSH SCH ×2 (09:42→22:34)
[2016-07-04] MEDS: FUROSEMIDE 40 MG TAB PO SCH (09:43)
--- NOTE | 2016-07-04 10:54 | HHI.PR ---
Subjective Remarks Follow-up GI bleed and anemia. States he is feeling better normal congestion after starting Lasix. Uses oxygen intermittently at home. Discussed with RN Objective Vitals Vital Signs Date Time Temp Pulse Resp B/P Pulse Ox O2 Delivery O2 Flow Rate FiO2 07/04/16 08:00 98.5 68 18 140/66 95 07/04/16 04:00 98.0 69 18 131/61 95 07/04/16 00:00 98.3 70 18 112/55 95 07/03/16 20:00 100.4 98 18 123/59 93 07/03/16 20:00 Nasal Cannula 2.00 07/03/16 20:00 72 07/03/16 18:55 78 07/03/16 16:30 Nasal Cannula 2.00 07/03/16 15:59 97 Nasal Cannula 2.00 07/03/16 14:00 74 07/03/16 13:15 99.2 78 19 122/68 94 07/03/16 12:00 97 Nasal Cannula 2.00 07/03/16 12:00 65 07/03/16 12:00 98.8 65 21 146/69 97 I/O 07/03/16 07/03/16 07/03/16 07/04/16 07/04/16 07/04/16 07:00 15:00 23:00 07:00 15:00 23:00 Intake Total 0 ml 348 ml 240 ml 100 ml Output Total 650 ml 1450 ml 150 ml Balance -650 ml -1102 ml 240 ml -50 ml Intake Oral 0 ml 100 ml 240 ml 100 ml IV Total 0 ml 248 ml Output Urine Total 650 ml 1450 ml 150 ml # Voids 0 # Bowel Movements 0 0 0 0 Result Diagram: 07/04/16 0400 07/04/16 0400 Imaging Last Impressions Chest X-Ray 07/03/16 0000 Signed Impressions: Service Date/Time: Sunday, July 03, 2016 09:48 - CONCLUSION: 1. Chronic elevation right hemidiaphragm. 2. Cardiomegaly. Miah Sawyer MD GI Bleed Scan Nuclear Medicine 06/30/16 7807 Signed Impressions: Service Date/Time: Thursday, June 30, 2016 17:35 - CONCLUSION: No active GI bleeding identified during the examination. Elmer Shoemaker MD Abdomen X-Ray 06/29/16 6016 Signed Impressions: Service Date/Time: Wednesday, June 29, 2016 03:41 - CONCLUSION: Benign abdomen. Sherwin Thomson MD Abdomen/Pelvis CT 06/29/16 0000 Signed Impressions: Service Date/Time: Wednesday, June 29, 2016 20:52 - CONCLUSION: Gallstones. Small celiac region lymph node. Renal cysts. Lung base infiltrates. No specific explanation for GI bleed William Jones MD Objective Remarks GENERAL: This is a well-nourished, well-developed patient, in no apparent distress. SKIN: No rashes, ecchymoses or lesions. Cool and dry. HEAD: Atraumatic. Normocephalic. No temporal or scalp tenderness. EYES: Pupils equal round and reactive. Extraocular motions intact. No scleral icterus. No injection or drainage. ENT: Nose without bleeding, purulent drainage or septal hematoma. Throat without erythema, tonsillar hypertrophy or exudate. Uvula midline. Airway patent. NECK: Trachea midline. No JVD or lymphadenopathy. Supple, nontender, no meningeal signs. CARDIOVASCULAR: Regular rate and rhythm without murmurs, gallops, or rubs. RESPIRATORY: Decreased breath sounds. No accessory muscle use. No wheezes, rales, or rhonchi. GASTROINTESTINAL: Abdomen soft, non-tender, nondistended. No guarding. MUSCULOSKELETAL: Extremities without clubbing, cyanosis. Right upper extremity edema from IV infiltration. Trace LE edema. No joint tenderness, effusion, or edema noted. No calf tenderness. Negative Homans sign bilaterally. NEUROLOGICAL: Awake and alert. Cranial nerves grossly intact. Motor and sensory grossly within normal limits. Muscle strength 4/5 right hand, rest normal strengths. Normal speech. Procedures EGD 3 A/P Problem List: (1) GI bleed ICD Code: K92.2 Status: Acute Assessment and Plan GIB Anemia 2/2 GIB . HGB 10.3 on admission dropped to 7.3. 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 Patient did not want surgery according to GS him. He also doesn't want any blood products. Monitor H/H so far stable. colon with polyps not removed 2/2 bleeding, needs repeat colonoscopy per GI Hiatal hernia Receiving venofer IV at this time. The patient is a Jehovah witness and is refusing all blood products. Hem/onc consulted, appreciate recommendations He is currently receiving Venofer IV Receiving procrit COPD without exacerbation - Restart home meds. keep on oxygen to keep O2 sat > 90% Uncontrolled HTN: Improving continue metoprolol, restart lasix po 40 mg po daily. Monitor urine output. Monitor closely BP. IV labetalol ,hydralazine prn Cardiomyopathy, CHF systolic EF 30%, AFib/flutter , has PM. Continue home meds. Monitor BP as might be going down 2.2 bleeding. Repeat chest x-ray unremarkable Add incentive spirometry CVA. Status post PT evaluation Continue home meds. -DVT prophylaxis SCD. Chemical ppx contraindicated 2/2 GIB Discharge Planning Patient can be discharged home to continue ferrous sulfate 325 mg po bid as OP. Can return for surgery in 2-4 weeks, hopefully his HGB/HTC improves. Also GI wants to repeat colonoscopy. We'll touch base with GI and hematology Waqas Lobo MD July 04, 2016 10:54 Discharge plan: Pending improvement clearance form consultants. Transfer to med/surg floor , receiving IV infusion venofer. Restarted lasix as bibasilar crackles on exam and BP is high. patient has a duodenal mass that neds at one point surgical resection. Patient however is a Jehovah witness and is refusing all blood products. Patient HGB dropped from baseline. Hem onc recommends venofer and procrit patient last dose of IV venofer is 07/04/16. Patient can be discharged home to continue ferrous sulfate 325 mg po bid as OP. Can return for surgery in 2-4 weeks, hopefully his HGB/HTC improves. Also GI wants to repeat colonoscopy. Jelena Amor MD July 03, 2016 07:37 Waqas Lobo MD July 04, 2016 10:54
[2016-07-04] MEDS ORDERED: POTA20TA5 PO (11:03)
[2016-07-04] MEDS ORDERED: LISI-519 PO (11:03)
--- NOTE | 2016-07-04 11:03 | HHI.DCPOC ---
Discharge Care Plan Diagnosis: (1) GI bleed Your Health Problems Are: Difficulty with ADL Exercise Tolerance Goals to Promote Your Health * To prevent worsening of your condition and complications * To maintain your health at the optimal level Directions to Meet Your Goals Take your medications as prescribed Follow your dietary instruction Follow activity as directed Keep your appointments as scheduled Take your immunizations and boosters as scheduled If your symptoms worsen call your PCP, if no PCP go to Urgent Care Center or Emergency Room Smoking is Dangerous to Your Health. Avoid second hand smoke Call the 24-hour hour crisis hotline for domestic abuse at Waqas Lobo MD July 04, 2016 11:03
[2016-07-04] MEDS: IRON SUCROSE INJ 200 MG in SODIUM CHLORIDE 0.9% INJ 100 ML IV SCH (15:24)
[2016-07-04] MEDS ORDERED: PEG (High)/E-LYTE SOLN 4000 ML BTL PO ONE (16:45)
--- NOTE | 2016-07-04 16:56 | HHI.GIFU ---
Subjective Remarks Resting in bed. No n/v. No active bleeding. No abdominal pain. Okay with colonoscopy in am. Objective Vitals I&O Vital Signs Date Time Temp Pulse Resp B/P Pulse Ox O2 Delivery O2 Flow Rate FiO2 07/04/16 16:12 97 Nasal Cannula 1.00 07/04/16 12:00 97.8 65 18 115/56 97 07/04/16 11:10 98 Nasal Cannula 1.00 07/04/16 09:45 73 07/04/16 09:45 95 Nasal Cannula 2.00 07/04/16 08:00 98.5 68 18 140/66 95 07/04/16 04:00 98.0 69 18 131/61 95 07/04/16 00:00 98.3 70 18 112/55 95 07/03/16 20:00 100.4 98 18 123/59 93 07/03/16 20:00 Nasal Cannula 2.00 07/03/16 20:00 72 07/03/16 18:55 78 I/O 07/03/16 07/03/16 07/03/16 07/04/16 07/04/16 07/04/16 07:00 15:00 23:00 07:00 15:00 23:00 Intake Total 0 ml 348 ml 240 ml 100 ml 960 ml Output Total 650 ml 1450 ml 150 ml Balance -650 ml -1102 ml 240 ml -50 ml 960 ml Intake Oral 0 ml 100 ml 240 ml 100 ml 960 ml IV Total 0 ml 248 ml 0 ml Output Urine Total 650 ml 1450 ml 150 ml # Voids 0 3 # Bowel Movements 0 0 0 0 0 Laboratory Laboratory Tests Test 07/04/16 04:00 White Blood Count 7.1 Red Blood Count 3.75 Hemoglobin 8.0 Hematocrit 25.1 Mean Corpuscular Volume 67.1 Mean Corpuscular Hemoglobin 21.2 Mean Corpuscular Hemoglobin 31.7 Concent Red Cell Distribution Width 19.1 Platelet Count 177 Mean Platelet Volume 9.0 Neutrophils (%) (Auto) 51.4 Lymphocytes (%) (Auto) 24.1 Monocytes (%) (Auto) 19.7 Eosinophils (%) (Auto) 4.0 Basophils (%) (Auto) 0.8 Neutrophils # (Auto) 3.7 Lymphocytes # (Auto) 1.7 Monocytes # (Auto) 1.4 Eosinophils # (Auto) 0.3 Basophils # (Auto) 0.1 CBC Comment AUTO DIFF Differential Total Cells 100 Counted Neutrophils % (Manual) 50 Band Neutrophils % 7 Lymphocytes % 20 Monocytes % 15 Eosinophils % 4 Basophils % 3 Neutrophils # (Manual) 4.1 Metamyelocytes 1 Nucleated Red Blood Cells 2 Differential Comment FINAL DIFF MANUAL Platelet Estimate NORMAL Platelet Morphology Comment NORMAL Sodium Level 143 Potassium Level 4.5 Chloride Level 107 Carbon Dioxide Level 27.0 Anion Gap 9 Blood Urea Nitrogen 9 Creatinine 1.20 Estimat Glomerular Filtration 72 Rate Random Glucose 89 Calcium Level 8.5 Magnesium Level 2.1 Imaging Last Impressions Chest X-Ray 07/03/16 0000 Signed Impressions: Service Date/Time: Sunday, July 03, 2016 09:48 - CONCLUSION: 1. Chronic elevation right hemidiaphragm. 2. Cardiomegaly. Miah Sawyer MD GI Bleed Scan Nuclear Medicine 06/30/16 1817 Signed Impressions: Service Date/Time: Thursday, June 30, 2016 17:35 - CONCLUSION: No active GI bleeding identified during the examination. Elmer Shoemaker MD Abdomen X-Ray 06/29/16 0326 Signed Impressions: Service Date/Time: Wednesday, June 29, 2016 03:41 - CONCLUSION: Benign abdomen. Sherwin Thomson MD Abdomen/Pelvis CT 06/29/16 0000 Signed Impressions: Service Date/Time: Wednesday, June 29, 2016 20:52 - CONCLUSION: Gallstones. Small celiac region lymph node. Renal cysts. Lung base infiltrates. No specific explanation for GI bleed William Jones MD Physical Exam HEENT: Normocephalic; atraumatic CHEST: CTA. CARDIAC: RRR. ABDOMEN: Soft, protuberant, nontender; no hepatosplenomegaly; bowel sounds are present in all four quadrants. EXTREMITIES: No clubbing, cyanosis, or edema. SKIN: Normal; no rash; no jaundice. REGIONAL OPERATIONS MANAGER: No focal deficits; alert and oriented times three. Assessment and Plan Plan ASSESSMENT: - GIB, Bloody stool. s/p EGD 07-02-16 --> large duodenal polyp 4cm removed by snare, site injected with epi 6cc to avoid bleed, normal EGD otehrwise. Pt woke up 2am with sudden urge to move his bowels with associated nausea, dry heaving, had 3 aproon bloody stools on . Abdomen/Pelvis CT (06/29/16)----> Gallstones. Small celiac region lymph node. Renal cysts. Lung base infiltrates. No specific explanation for GI bleed. S/P EGD/Colonoscopy (06/30/16)----> 1. Large amount of food in stomach suggesting gastroparesis polypoid mass in duodenal bulb-biopsy no blood seen in stomach 2. Retroflexed views revealed a hiatal hernia. S/P EGD (07/02)----> 1. Pandiverticulosis, marilynn stool suctioned , up to cecum-no active bleeding few polyps in ascending colon, not removed at this time due to bleeding 2. Retroflexed views revealed internal hemorrhoids 3. Retroflexed views revealed small internal hemorrhoids 4. Revealed external hemorrhoid. S/P 1. Large duodenal bulb polyp 4 cm removed by snare the site was injected by 6 cc of EPI to avoid any bleed. 2. Normal endoscopy otherwise. 3. Retroflexed views revealed no abnormalities. Will plan for colonoscopy tomorrow prior to discharge (poor prep). No active bleeding. 8.0/25.1. - Acute blood loss anemia. 8.0/25.1. PT Jehovah Witness, no blood products. Hematology following. - Polypoid duodenal mass. Pathology focally ulcerated adenomatous polyp exhibiting high grade dysplastic change. Will need EUS. - Near syncopal episode, likely vasovagal- occurred while having a bowel movement. - Aflutter, Hx CVA. Pt on Coumadin. States he last took , INR 1.2. - CHF, COPD per primary - PT IS A JEHOVAH WITNESS AND DOES NOT WANT ANY BLOOD PRODUCTS PLAN: - Plan for colonoscopy in am - Obtain consents - NPO after MN - Clear liquids - Golytely prep - Protonix 40mg iV BID - FU EGD 2-3 months as outpatient - NO BLOOD PRODUCTS, JEHOVAH WITNESS - This pt seen by Dr Littlejohn and myself and this note is written on his behalf Sonia Klein July 04, 2016 16:56
[2016-07-05] VITALS (8 sets, daily range): BP systolic 123–167; BP diastolic 57–74; PULSE 64–75; RESP 16–20; TEMP 97.7–99.5; O2SAT 94–100
[2016-07-05] MEDS: CHLORHEXIDINE GLUCONATE 2 % 1 PACK (2 CLOTHS)(taper/protocol) TOPICAL SCH (04:10)
[2016-07-05] MEDS: PANTOPRAZOLE SODIUM 40 MG VIAL IV PUSH SCH ×2 (09:38→20:49)
[2016-07-05] MEDS: FUROSEMIDE 40 MG TAB PO SCH (09:38)
[2016-07-05] MEDS: LISINOPRIL 5 MG TAB PO SCH (09:38)
[2016-07-05] MEDS: SODIUM CHLORIDE 0.9% FLUSH 10 ML FLUSH IV FLUSH SCH ×2 (09:38→20:50)
[2016-07-05] MEDS: METOPROLOL TARTRATE 50 MG TAB PO SCH ×2 (09:38→20:49)
[2016-07-05] MEDS: POTASSIUM CHLORIDE 20 MEQ CONTROLLED RELEASE TAB PO SCH ×2 (09:38→20:49)
--- NOTE | 2016-07-05 12:13 | HHI.GIFU ---
Subjective Remarks Resting in bed. States he is still passing softly formed stool despite taking bowel prep yesterday. Will give additional bowel prep today and plan for colonoscopy in am. Objective Vitals I&O Vital Signs Date Time Temp Pulse Resp B/P Pulse Ox O2 Delivery O2 Flow Rate FiO2 07/05/16 08:42 96 1.00 07/05/16 08:20 Nasal Cannula 2.00 07/05/16 08:20 66 07/05/16 08:00 98.0 72 18 123/69 96 07/05/16 04:00 98.6 70 20 125/57 96 07/05/16 00:00 98.2 75 20 167/74 94 07/04/16 20:00 98.3 72 20 144/63 97 07/04/16 20:00 Nasal Cannula 2.00 07/04/16 16:12 97 Nasal Cannula 1.00 07/04/16 16:00 98.6 77 18 139/63 99 I/O 07/04/16 07/04/16 07/04/16 07/05/16 07/05/16 07/05/16 07:00 15:00 23:00 07:00 15:00 23:00 Intake Total 100 ml 960 ml Output Total 150 ml Balance -50 ml 960 ml Intake Oral 100 ml 960 ml IV Total 0 ml Output Urine Total 150 ml # Voids 3 # Bowel Movements 0 0 Imaging Last Impressions Chest X-Ray 07/03/16 0000 Signed Impressions: Service Date/Time: Sunday, July 03, 2016 09:48 - CONCLUSION: 1. Chronic elevation right hemidiaphragm. 2. Cardiomegaly. Miah Sawyer MD GI Bleed Scan Nuclear Medicine 06/30/16 1817 Signed Impressions: Service Date/Time: Thursday, June 30, 2016 17:35 - CONCLUSION: No active GI bleeding identified during the examination. Elmer Shoemaker MD Abdomen X-Ray 06/29/16 0326 Signed Impressions: Service Date/Time: Wednesday, June 29, 2016 03:41 - CONCLUSION: Benign abdomen. Sherwin Thomson MD Abdomen/Pelvis CT 06/29/16 0000 Signed Impressions: Service Date/Time: Wednesday, June 29, 2016 20:52 - CONCLUSION: Gallstones. Small celiac region lymph node. Renal cysts. Lung base infiltrates. No specific explanation for GI bleed William Jones MD Physical Exam HEENT: Normocephalic; atraumatic CHEST: CTA. CARDIAC: RRR. ABDOMEN: Soft, nontender; no hepatosplenomegaly; bowel sounds are present in all four quadrants. EXTREMITIES: No clubbing, cyanosis, or edema. SKIN: Normal; no rash; no jaundice. 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 Assessment and Plan Plan ASSESSMENT: - GIB, Bloody stool. Pt woke up 2am with sudden urge to move his bowels with associated nausea, dry heaving, had 3 maroon bloody stools on . Abdomen/Pelvis CT (06/29/16)----> Gallstones. Small celiac region lymph node. Renal cysts. Lung base infiltrates. No specific explanation for GI bleed. S/P EGD/Colonoscopy (06/30/16)----> 1. Large amount of food in stomach suggesting gastroparesis polypoid mass in duodenal bulb-biopsy no blood seen in stomach 2. Retroflexed views revealed a hiatal hernia. S/P EGD (07/02)----> 1. Pandiverticulosis, marilynn stool suctioned , up to cecum-no active bleeding few polyps in ascending colon, not removed at this time due to bleeding 2. Retroflexed views revealed internal hemorrhoids 3. Retroflexed views revealed small internal hemorrhoids 4. Revealed external hemorrhoid. S/P 1. Large duodenal bulb polyp 4 cm removed by snare the site was injected by 6 cc of EPI to avoid any bleed. 2. Normal endoscopy otherwise. 3. Retroflexed views revealed no abnormalities. Plan was for colonoscopy today, but he is still having softly formed stool despite the bowel prep. Will prep again and plan for tomorrow. - Acute blood loss anemia. 8.0/25.1. PT Jehovah Witness, no blood products. Hematology following. - Polypoid duodenal mass. Pathology focally ulcerated adenomatous polyp exhibiting high grade dysplastic change. S/P complete removal, egd as outpt - Near syncopal episode, likely vasovagal- occurred while having a bowel movement. - Aflutter, Hx CVA. Pt on Coumadin. States he last took Thursday, INR 1.2. - CHF, COPD per primary - PT IS A JEHOVAH WITNESS AND DOES NOT WANT ANY BLOOD PRODUCTS PLAN: - Plan for colonoscopy in am - Obtain consents - NPO after MN - Clear liquids - Golytely prep - Protonix 40mg iV BID - FU EGD 2-3 months as outpatient - NO BLOOD PRODUCTS, JEHOVAH WITNESS - This pt seen by Dr Littlejohn and myself and this note is written on his behalf Sonia Klein July 05, 2016 12:13
[2016-07-05] MEDS ORDERED: PEG (High)/E-LYTE SOLN 4000 ML BTL PO ONE (12:15)
--- NOTE | 2016-07-05 12:15 | HHI.PR ---
Subjective Remarks Follow-up GI bleed. No further GI bleeding feels tired. For colonoscopy. Discussed with GI, outpatient EUS with regards to abnormal pathology from the duodenum showing dysplasia Objective Vitals Vital Signs Date Time Temp Pulse Resp B/P Pulse Ox O2 Delivery O2 Flow Rate FiO2 07/05/16 08:42 96 1.00 07/05/16 08:20 Nasal Cannula 2.00 07/05/16 08:20 66 07/05/16 08:00 98.0 72 18 123/69 96 07/05/16 04:00 98.6 70 20 125/57 96 07/05/16 00:00 98.2 75 20 167/74 94 07/04/16 20:00 98.3 72 20 144/63 97 07/04/16 20:00 Nasal Cannula 2.00 07/04/16 16:12 97 Nasal Cannula 1.00 07/04/16 16:00 98.6 77 18 139/63 99 I/O 07/04/16 07/04/16 07/04/16 07/05/16 07/05/16 07/05/16 07:00 15:00 23:00 07:00 15:00 23:00 Intake Total 100 ml 960 ml Output Total 150 ml Balance -50 ml 960 ml Intake Oral 100 ml 960 ml IV Total 0 ml Output Urine Total 150 ml # Voids 3 # Bowel Movements 0 0 Result Diagram: 07/04/16 0400 07/04/16 0400 Imaging Last Impressions Chest X-Ray 07/03/16 0000 Signed Impressions: Service Date/Time: Sunday, July 03, 2016 09:48 - CONCLUSION: 1. Chronic elevation right hemidiaphragm. 2. Cardiomegaly. Miah Sawyer MD GI Bleed Scan Nuclear Medicine 06/30/16 1817 Signed Impressions: Service Date/Time: Thursday, June 30, 2016 17:35 - CONCLUSION: No active GI bleeding identified during the examination. Elmer Shoemaker MD Abdomen X-Ray 06/29/16 0326 Signed Impressions: Service Date/Time: Wednesday, June 29, 2016 03:41 - CONCLUSION: Benign abdomen. Sherwin Thomson MD Abdomen/Pelvis CT 06/29/16 0000 Signed Impressions: Service Date/Time: [place], June 29, 2016 20:52 - CONCLUSION: Gallstones. Small celiac region lymph node. Renal cysts. Lung base infiltrates. No specific explanation for GI bleed William Jones MD Objective Remarks GENERAL: This is a well-nourished, well-developed patient, in no apparent distress. SKIN: No rashes, ecchymoses or lesions. Cool and dry. HEAD: Atraumatic. Normocephalic. No temporal or scalp tenderness. EYES: Pupils equal round and reactive. Extraocular motions intact. No scleral icterus. No injection or drainage. ENT: Nose without bleeding, purulent drainage or septal hematoma. Throat without erythema, tonsillar hypertrophy or exudate. Uvula midline. Airway patent. NECK: Trachea midline. No JVD or lymphadenopathy. Supple, nontender, no meningeal signs. CARDIOVASCULAR: Regular rate and rhythm without murmurs, gallops, or rubs. RESPIRATORY: Decreased breath sounds. No accessory muscle use. No wheezes, rales, or rhonchi. GASTROINTESTINAL: Abdomen soft, non-tender, nondistended. No guarding. MUSCULOSKELETAL: Extremities without clubbing, cyanosis. Right upper extremity edema from IV infiltration. Trace LE edema. No joint tenderness, effusion, or edema noted. No calf tenderness. Negative Homans sign bilaterally. NEUROLOGICAL: Awake and alert. Cranial nerves grossly intact. Motor and sensory grossly within normal limits. Muscle strength 4/5 right hand, rest normal strengths. Normal speech. Procedures EGD 3, C scope A/P Problem List: (1) GI bleed ICD Code: K92.2 Status: Acute Assessment and Plan GIB Anemia 2/2 GIB . 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 For EUS per GI op. Patient did not want surgery according to GS. He also doesn't want any blood products. Monitor H/H so far stable. colon with polyps not removed 2/2 bleeding, needs repeat colonoscopy per GI Hiatal hernia S/p venofer IV at this time. The patient is a Jehovah witness and is refusing all blood products. Hem/onc consulted, appreciate recommendations COPD without exacerbation - Restart home meds. keep on oxygen to keep O2 sat > 90% Uncontrolled HTN: Improving continue metoprolol, restart lasix po 40 mg po daily. Monitor urine output. Monitor closely BP. IV labetalol ,hydralazine prn Cardiomyopathy, CHF systolic EF 30%, AFib/flutter , has PM. Continue home meds. Monitor BP as might be going down 2.2 bleeding. Repeat chest x-ray unremarkable Add incentive spirometry CVA. Status post PT evaluation Continue home meds. -DVT prophylaxis SCD. Chemical ppx contraindicated 2/2 GIB Discharge Planning Patient can be discharged home to continue ferrous sulfate 325 mg po bid as OP. Can return for surgery in 2-4 weeks, hopefully his HGB/HTC improves. Discharge after repeat colonoscopy. Waqas Lobo MD July 05, 2016 12:15
[2016-07-05] MEDS ORDERED: BISACODYL EC 5 MG TABEC PO ONE (19:15)
[2016-07-06] VITALS (9 sets, daily range): BP systolic 116–139; BP diastolic 55–80; PULSE 67–79; RESP 15–22; TEMP 98.6–99.7; O2SAT 90–98
[2016-07-06 04:03] LABS: BICARBONATE 34.3 MEQ/L (21.0-32.0); MAGNESIUM 1.9 MG/DL (1.5-2.5); POTASSIUM 3.9 MEQ/L (3.5-5.1)
[2016-07-06 04:25] LABS: AUTOMATED NEUTROPHIL # 4.9 TH/MM3 (1.8-7.7); BASOPHIL # 0.1 TH/MM3 (0-0.2); BASOPHIL % 0.7 % (0.0-2.0); EOSINOPHIL # 0.2 TH/MM3 (0-0.4); EOSINOPHIL % 2.5 % (0.0-4.0); HEMATOCRIT 27.2 % (39.0-51.0); LYMPH % 22.7 % (9.0-44.0); MEAN CELL VOLUME 70.6 FL (80.0-100.0); MEAN CORPUSCULAR HEMOGLOBIN 21.7 PG (27.0-34.0); MEAN CORPUSCULAR HGB CONC 30.7 % (32.0-36.0); MONO % 16.9 % (0.0-8.0); NEUT % 57.2 % (16.0-70.0); PLATELET COUNT 196 TH/MM3 (150-450); RED BLOOD COUNT 3.85 MIL/MM3 (4.50-5.90); WHITE BLOOD COUNT 8.6 TH/MM3 (4.0-11.0)
[2016-07-06 04:32] LABS: HEMO FLAGS AUTO DIFF
[2016-07-06 05:03] LABS: BANDS 1 % (0-6); CORRECTED NUCLEATED RBC 7 /100 WBC (0-0); EOSINOPHILS 3 % (0-4); MYELOCYTES 1 % (0-0); NEUTROPHIL # MANUAL DIFF 5.1 TH/MM3 (1.8-7.7); POLYS (SEG NEUTROPHILS) 57 % (16-70); WBC DIFF SAMPLE 100
[2016-07-06 05:06] LABS: PLATELET ESTIMATE SMEAR NORMAL (NORMAL); PLATELET MORPHOLOGY NORMAL (NORMAL); SCAN/DIFF FINAL DIFF MANUAL
[2016-07-06] MEDS: METOPROLOL TARTRATE 50 MG TAB PO SCH ×2 (09:09→20:26)
[2016-07-06] MEDS: LISINOPRIL 5 MG TAB PO SCH (09:09)
[2016-07-06] MEDS: SODIUM CHLORIDE 0.9% FLUSH 10 ML FLUSH IV FLUSH SCH ×2 (09:09→20:26)
[2016-07-06] MEDS: PANTOPRAZOLE SODIUM 40 MG VIAL IV PUSH SCH ×2 (09:09→20:26)
[2016-07-06] MEDS: POTASSIUM CHLORIDE 20 MEQ CONTROLLED RELEASE TAB PO SCH ×2 (09:09→20:26)
[2016-07-06] MEDS: FUROSEMIDE 40 MG TAB PO SCH (09:09)
--- NOTE | 2016-07-06 13:24 | HHI.PR ---
Subjective Remarks Follow-up GI bleed. Seen in the endoscopy suite. No further bleeding. Complains of right upper extremity discomfort he has IV infiltration with cellulitis. Discussed with RN Objective Vitals Vital Signs Date Time Temp Pulse Resp B/P Pulse Ox O2 Delivery O2 Flow Rate FiO2 07/06/16 11:10 98.9 67 18 139/80 97 07/06/16 10:33 97 2.00 07/06/16 08:10 Nasal Cannula 2.00 07/06/16 08:00 98.9 67 18 139/80 97 07/06/16 08:00 68 07/06/16 04:00 99.7 76 16 121/62 98 07/06/16 00:00 99.0 74 15 133/60 90 07/05/16 19:45 Nasal Cannula 2.00 07/05/16 19:00 99.5 70 18 126/67 100 07/05/16 16:00 97.7 64 18 145/67 98 I/O 07/05/16 07/05/16 07/05/16 07/06/16 07/06/16 07/06/16 07:00 15:00 23:00 07:00 15:00 23:00 Intake Total 1060 ml 480 ml 480 ml Output Total 1425 ml Balance -365 ml 480 ml 480 ml Intake Oral 1060 ml 480 ml 480 ml Output Urine Total 1425 ml # Voids 3 3 # Bowel Movements 1 0 0 Result Diagram: 07/06/16 0336 07/06/16 0336 Imaging Last Impressions Chest X-Ray 07/03/16 0000 Signed Impressions: Service Date/Time: Sunday, July 03, 2016 09:48 - CONCLUSION: 1. Chronic elevation right hemidiaphragm. 2. Cardiomegaly. Miah Sawyer MD GI Bleed Scan Nuclear Medicine 06/30/16 1817 Signed Impressions: Service Date/Time: Thursday, June 30, 2016 17:35 - CONCLUSION: No active GI bleeding identified during the examination. Elmer Shoemaker MD Abdomen X-Ray 06/29/16 0326 Signed Impressions: Service Date/Time: Wednesday, June 29, 2016 03:41 - CONCLUSION: Benign abdomen. Sherwin Thomson MD Abdomen/Pelvis CT 06/29/16 0000 Signed Impressions: Service Date/Time: Wednesday, June 29, 2016 20:52 - CONCLUSION: Gallstones. Small celiac region lymph node. Renal cysts. Lung base infiltrates. No specific explanation for GI bleed William Jones MD Objective Remarks GENERAL: This is a well-nourished, well-developed patient, in no apparent distress. SKIN: No rashes, ecchymoses or lesions. Cool and dry. HEAD: Atraumatic. Normocephalic. No temporal or scalp tenderness. EYES: Pupils equal round and reactive. Extraocular motions intact. No scleral icterus. No injection or drainage. ENT: Nose without bleeding, purulent drainage or septal hematoma. Throat without erythema, tonsillar hypertrophy or exudate. Uvula midline. Airway patent. NECK: Trachea midline. No JVD or lymphadenopathy. Supple, nontender, no meningeal signs. CARDIOVASCULAR: Regular rate and rhythm without murmurs, gallops, or rubs. RESPIRATORY: Decreased breath sounds. No accessory muscle use. No wheezes, rales, or rhonchi. GASTROINTESTINAL: Abdomen soft, non-tender, nondistended. No guarding. MUSCULOSKELETAL: Extremities without clubbing, cyanosis. Right upper extremity edema from IV infiltration with area of erythema medial distal arm. Trace LE edema. No joint tenderness, effusion, or edema noted. No calf tenderness. Negative Homans sign bilaterally. NEUROLOGICAL: Awake and alert. Cranial nerves grossly intact. Motor and sensory grossly within normal limits. Muscle strength 4/5 right hand, rest normal strengths. Normal speech. Procedures EGD 3, C scope A/P Problem List: (1) GI bleed ICD Code: K92.2 Status: Acute Assessment and Plan GIB. No further GI bleed Anemia 2/2 GIB . 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 For EUS per GI op. Patient did not want surgery according to GS. He also doesn't want any blood products. Monitor H/H so far stable. colon with polyps not removed 2/2 bleeding, needs repeat colonoscopy today per GI Hiatal hernia S/p venofer IV at this time. The patient is a Jehovah witness and is refusing all blood products. Hem/onc consulted, appreciate recommendations COPD without exacerbation - Restart home meds. keep on oxygen to keep O2 sat > 90% Uncontrolled HTN: Improving continue metoprolol, restart lasix po 40 mg po daily. Monitor urine output. Monitor closely BP. IV labetalol ,hydralazine prn Cardiomyopathy, CHF systolic EF 30%, AFib/flutter , has PM. Continue home meds. Monitor BP as might be going down 2.2 bleeding. Repeat chest x-ray unremarkable Add incentive spirometry CVA. Status post PT evaluation Continue home meds. Right upper extremity swelling with cellulitis. Obtain Doppler and start Levaquin -DVT prophylaxis SCD. Chemical ppx contraindicated 2/2 GIB Discharge Planning Patient can be discharged home to continue ferrous sulfate 325 mg po bid as OP. Can return for surgery in 2-4 weeks, hopefully his HGB/HTC improves. Discharge after repeat colonoscopy when cleared by GI. Also to clarify when to restart Coumadin. Waqas Lobo MD July 06, 2016 13:24
[2016-07-06] MEDS ORDERED: LEVA750T PO (13:31)
[2016-07-06] MEDS ORDERED: PROPOFOL 200 MG/20 ML AMP IV ONE (14:00)
--- NOTE | 2016-07-06 14:25 | HHI.GIFU ---
Subjective Remarks Immediate post procedure note: attempted colonoscopy Indication: colon polyps, recent LGI bleed, recent removal of large duodenal polyp Meds: MAC Findings: On rectal exam there was some liquid stool otherwise normal. Scope inserted and encountered stool in the rectum, sigmoid and descending. Unable to proceed to get a good exam. Procedure terminated without reaching the cecum. He did have diverticulosis making further attempts today hazardous. Impression: diverticulosis, constipation. Failure to successfully prep with one gallon go lytely and dulcolax. Plan: Could retry colonoscopy on Saturday after laxatives this , or discharge to return as outpatient. Objective Vitals I&O Vital Signs Date Time Temp Pulse Resp B/P Pulse Ox O2 Delivery O2 Flow Rate FiO2 07/06/16 11:10 98.9 67 18 139/80 97 07/06/16 10:33 97 2.00 07/06/16 08:10 Nasal Cannula 2.00 07/06/16 08:00 98.9 67 18 139/80 97 07/06/16 08:00 68 07/06/16 04:00 99.7 76 16 121/62 98 07/06/16 00:00 99.0 74 15 133/60 90 07/05/16 19:45 Nasal Cannula 2.00 07/05/16 19:00 99.5 70 18 126/67 100 07/05/16 16:00 97.7 64 18 145/67 98 I/O 07/05/16 07/05/16 07/05/16 07/06/16 07/06/16 07/06/16 07:00 15:00 23:00 07:00 15:00 23:00 Intake Total 1060 ml 480 ml 480 ml Output Total 1425 ml Balance -365 ml 480 ml 480 ml Intake Oral 1060 ml 480 ml 480 ml Output Urine Total 1425 ml # Voids 3 3 # Bowel Movements 1 0 0 Laboratory Laboratory Tests Test 07/06/16 03:36 White Blood Count 8.6 Red Blood Count 3.85 Hemoglobin 8.3 Hematocrit 27.2 Mean Corpuscular Volume 70.6 Mean Corpuscular Hemoglobin 21.7 Mean Corpuscular Hemoglobin 30.7 Concent Red Cell Distribution Width 19.0 Platelet Count 196 Mean Platelet Volume 8.2 Neutrophils (%) (Auto) 57.2 Lymphocytes (%) (Auto) 22.7 Monocytes (%) (Auto) 16.9 Eosinophils (%) (Auto) 2.5 Basophils (%) (Auto) 0.7 Neutrophils # (Auto) 4.9 Lymphocytes # (Auto) 2.0 Monocytes # (Auto) 1.5 Eosinophils # (Auto) 0.2 Basophils # (Auto) 0.1 CBC Comment AUTO DIFF Differential Total Cells 100 Counted Neutrophils % (Manual) 57 Band Neutrophils % 1 Lymphocytes % 28 Monocytes % 10 Eosinophils % 3 Neutrophils # (Manual) 5.1 Myelocytes 1 Nucleated Red Blood Cells 7 Differential Comment FINAL DIFF MANUAL Platelet Estimate NORMAL Platelet Morphology Comment NORMAL Polychromasia 2.0 Sodium Level 143 Potassium Level 3.9 Chloride Level 104 Carbon Dioxide Level 34.3 Anion Gap 5 Blood Urea Nitrogen 9 Creatinine 1.01 Estimat Glomerular Filtration 88 Rate Random Glucose 85 Calcium Level 8.6 Magnesium Level 1.9 Physical Exam HEENT: Normocephalic; atraumatic CHEST: CTA. CARDIAC: RRR. ABDOMEN: Soft, nontender; no hepatosplenomegaly; bowel sounds are present in all four quadrants. EXTREMITIES: No clubbing, cyanosis, or edema. SKIN: Normal; no rash; no jaundice. [employer]: No focal deficits; alert and oriented times three. Assessment and Plan Plan ASSESSMENT: - GIB, Bloody stool. Pt woke up 2am with sudden urge to move his bowels with associated nausea, dry heaving, had 3 maroon bloody stools on . Abdomen/Pelvis CT (06/29/16)----> Gallstones. Small celiac region lymph node. Renal cysts. Lung base infiltrates. No specific explanation for GI bleed. S/P EGD/Colonoscopy (06/30/16)----> 1. Large amount of food in stomach suggesting gastroparesis polypoid mass in duodenal bulb-biopsy no blood seen in stomach 2. Retroflexed views revealed a hiatal hernia. S/P EGD (07/02)----> 1. Pandiverticulosis, marilynn stool suctioned , up to cecum-no active bleeding few polyps in ascending colon, not removed at this time due to bleeding 2. Retroflexed views revealed internal hemorrhoids 3. Retroflexed views revealed small internal hemorrhoids 4. Revealed external hemorrhoid. S/P 1. Large duodenal bulb polyp 4 cm removed by snare the site was injected by 6 cc of EPI to avoid any bleed. 2. Normal endoscopy otherwise. 3. Retroflexed views revealed no abnormalities. Plan was for colonoscopy today, but he is still having softly formed stool despite the bowel prep. Will prep again and plan for tomorrow. - Acute blood loss anemia. 8.0.1. PT Jehovah Witness, no blood products. Hematology following. - Polypoid duodenal mass. Pathology focally ulcerated adenomatous polyp exhibiting high grade dysplastic change. S/P complete removal, egd as outpt - Near syncopal episode, likely vasovagal- occurred while having a bowel movement. - Aflutter, Hx CVA. Pt on Coumadin. States he last took , INR 1.2. - CHF, COPD per primary - PT IS A JEH[employer] WITNESS AND DOES NOT WANT ANY BLOOD PRODUCTS 07/06 Colonoscopy attempt failed, inadequate prep. PLAN: - Plan for colonoscopy in am - Obtain consents - NPO after MN - Clear liquids - Golytely prep - Protonix 40mg iV BID - FU EGD 2-3 months as outpatient - NO BLOOD PRODUCTS, JEH[employer]H WITNESS -Pt could be discharged with plan for outpatient colonoscopy or reprep this weekend for colonoscopy on Saturday. Bob Littlejohn MD July 06, 2016 14:25
[2016-07-06] MEDS ORDERED: DO NOT ADM ANY ANTICOAGULANT DRUGS PRN (14:45)
[2016-07-06] MEDS ORDERED: MIDAZOLAM HCL 2 MG/2 ML VIAL ONE (15:23)
[2016-07-06] MEDS ORDERED: KETAMINE HCL 500 MG/5 ML VIAL ONE (15:23)
[2016-07-06] MEDS: LEVOFLOXACIN 750 MG TAB PO SCH (16:20)
--- NOTE | 2016-07-06 16:47 | RADRPT ---
EXAM DATE/TIME: 07/06/2016 15:21 [facility] COMPARISON: US ARM RIGHT VENOUS DOPPLER, February 01, 2014, 16:30. INDICATIONS : Right arm swelling. MEDICAL HISTORY : Congestive heart failure. CVA. Numbness. Afib. HTN. COPD. Sleep apnea. Melena. Gout. SURGICAL HISTORY : Tonsillectomy. Pacemaker. Appendectomy. Bilateral leg surgery. ENCOUNTER: Initial ACUITY: 1 day PAIN SCORE: 3/10 LOCATION: Right arm. FINDINGS: There is thrombus confined to the basilic vein. The cephalic brachial axillary and subclavian veins a re patent. CONCLUSION: Superficial femorals widest involving the entire basilic vein Reggie Villanueva MD on July 06, 2016 at 16:45 Board Certified Radiologist. This report was verified electronically.
[2016-07-07] VITALS (11 sets, daily range): BP systolic 100–118; BP diastolic 49–76; PULSE 66–98; RESP 18–22; TEMP 97.9–98.6; O2SAT 94–100
[2016-07-07 07:22] LABS: AUTOMATED NEUTROPHIL # 4.3 TH/MM3 (1.8-7.7); BASOPHIL % 0.3 % (0.0-2.0); EOSINOPHIL # 0.1 TH/MM3 (0-0.4); EOSINOPHIL % 1.9 % (0.0-4.0); LYMPH % 23.6 % (9.0-44.0); LYMPHOCYTE # 1.8 TH/MM3 (1.0-4.8); MEAN CELL VOLUME 71.1 FL (80.0-100.0); MEAN CORPUSCULAR HEMOGLOBIN 21.7 PG (27.0-34.0); MEAN CORPUSCULAR HGB CONC 30.5 % (32.0-36.0); MONO % 16.9 % (0.0-8.0); NEUT % 57.3 % (16.0-70.0); PLATELET COUNT 163 TH/MM3 (150-450); RED BLOOD COUNT 3.94 MIL/MM3 (4.50-5.90); RED CELL DISTRIBUTION WIDTH 19.3 % (11.6-17.2); WHITE BLOOD COUNT 7.5 TH/MM3 (4.0-11.0)
[2016-07-07 07:26] LABS: HEMO FLAGS AUTO DIFF
[2016-07-07 07:50] LABS: BICARBONATE 34.9 MEQ/L (21.0-32.0); MAGNESIUM 2.1 MG/DL (1.5-2.5); POTASSIUM 4.2 MEQ/L (3.5-5.1)
[2016-07-07] MEDS: LISINOPRIL 5 MG TAB PO SCH (09:00)
[2016-07-07] MEDS: SODIUM CHLORIDE 0.9% FLUSH 10 ML FLUSH IV FLUSH SCH ×2 (09:00→20:41)
[2016-07-07] MEDS: PANTOPRAZOLE SODIUM 40 MG VIAL IV PUSH SCH ×2 (09:00→20:40)
[2016-07-07] MEDS ORDERED: POLYETHYLENE GLYCOL 17 GM PKG PO SCH (09:00)
[2016-07-07] MEDS: POTASSIUM CHLORIDE 20 MEQ CONTROLLED RELEASE TAB PO SCH ×2 (09:39→20:40)
[2016-07-07] MEDS: METOPROLOL TARTRATE 50 MG TAB PO SCH ×2 (09:39→20:40)
[2016-07-07] MEDS: FUROSEMIDE 40 MG TAB PO SCH (09:39)
[2016-07-07] MEDS: LEVOFLOXACIN 750 MG TAB PO SCH (09:39)
[2016-07-07 09:59] LABS: BANDS 3 % (0-6); BLASTS 1 % (0-0); EOSINOPHILS 2 % (0-4); NEUTROPHIL # MANUAL DIFF 4.2 TH/MM3 (1.8-7.7); POLYS (SEG NEUTROPHILS) 53 % (16-70); WBC DIFF SAMPLE 100
[2016-07-07 10:00] LABS: OVALOCYTES 1+ (NORMAL); PLATELET ESTIMATE SMEAR NORMAL (NORMAL); PLATELET MORPHOLOGY NORMAL (NORMAL); POLYCHROMASIA 3.1 % (0.0-1.9); SCAN/DIFF FINAL DIFF MANUAL
[2016-07-07 10:03] LABS: FREE T3 2.14 PG/ML (2.18-3.98); FREE T4 0.85 NG/DL (0.76-1.46)
--- NOTE | 2016-07-07 11:59 | HHI.PR ---
Subjective Remarks Follow-up GI bleed no further bleeding. States no BM even with MiraLAX. Discussed with GI, will increase MiraLAX to 34 g 3 times a day. 4 repeat colonoscopy this coming Saturday. Discussed with RN Objective Vitals Vital Signs Date Time Temp Pulse Resp B/P Pulse Ox O2 Delivery O2 Flow Rate FiO2 07/07/16 08:20 67 07/07/16 08:00 97.9 67 20 103/67 99 07/07/16 04:51 20 07/07/16 04:40 98.2 98 22 114/76 96 07/07/16 00:00 98.6 73 22 101/54 98 07/06/16 22:47 98.6 76 22 116/55 97 07/06/16 20:00 72 07/06/16 19:45 Nasal Cannula 2.00 07/06/16 17:25 98 21 07/06/16 16:00 99.2 79 20 137/65 98 07/06/16 14:40 98.3 72 20 124/74 98 Nasal Cannula 2 07/06/16 14:30 68 12 123/67 97 07/06/16 14:17 98.3 67 12 137/76 97 Nasal Cannula 2 I/O 07/06/16 07/06/16 07/06/16 07/07/16 07/07/16 07/07/16 07:00 15:00 23:00 07:00 15:00 23:00 Intake Total 480 ml 580 ml 520 ml 360 ml Output Total 350 ml 500 ml 500 ml Balance 480 ml 230 ml 20 ml -140 ml Intake Oral 480 ml 480 ml 520 ml 360 ml Other 100 ml Output Urine Total 350 ml 500 ml 500 ml # Voids 3 # Bowel Movements 0 1 1 Result Diagram: 07/07/16 0633 07/07/16 0633 Imaging Last Impressions Upper Extremity Ultrasound 07/06/16 0000 Signed Impressions: Service Date/Time: Wednesday, July 06, 2016 15:21 - CONCLUSION: Superficial femorals widest involving the entire basilic vein Reggie Villanueva MD Chest X-Ray 07/03/16 0000 Signed Impressions: Service Date/Time: Sunday, July 03, 2016 09:48 - CONCLUSION: 1. Chronic elevation right hemidiaphragm. 2. Cardiomegaly. Miah Sawyer MD GI Bleed Scan Nuclear Medicine 06/30/16 1817 Signed Impressions: Service Date/Time: Thursday, June 30, 2016 17:35 - CONCLUSION: No active GI bleeding identified during the examination. Elmer Shoemaker MD Abdomen X-Ray 06/29/16 0326 Signed Impressions: Service Date/Time: Wednesday, June 29, 2016 03:41 - CONCLUSION: Benign abdomen. Sherwin Thomson MD Abdomen/Pelvis CT 06/29/16 0000 Signed Impressions: Service Date/Time: Wednesday, June 29, 2016 20:52 - CONCLUSION: Gallstones. Small celiac region lymph node. Renal cysts. Lung base infiltrates. No specific explanation for GI bleed William Jones MD Objective Remarks GENERAL: This is a well-nourished, well-developed patient, in no apparent distress. SKIN: No rashes, ecchymoses or lesions. Cool and dry. HEAD: Atraumatic. Normocephalic. No temporal or scalp tenderness. EYES: Pupils equal round and reactive. Extraocular motions intact. No scleral icterus. No injection or drainage. ENT: Nose without bleeding, purulent drainage or septal hematoma. Throat without erythema, tonsillar hypertrophy or exudate. Uvula midline. Airway patent. NECK: Trachea midline. No JVD or lymphadenopathy. Supple, nontender, no meningeal signs. CARDIOVASCULAR: Regular rate and rhythm without murmurs, gallops, or rubs. RESPIRATORY: Decreased breath sounds. No accessory muscle use. No wheezes, rales, or rhonchi. GASTROINTESTINAL: Abdomen soft, non-tender, nondistended. No guarding. MUSCULOSKELETAL: Extremities without clubbing, cyanosis. Right upper extremity edema from IV infiltration with area of erythema medial distal arm. Trace LE edema. No joint tenderness, effusion, or edema noted. No calf tenderness. Negative Homans sign bilaterally. NEUROLOGICAL: Awake and alert. Cranial nerves grossly intact. Motor and sensory grossly within normal limits. Muscle strength 4/5 right hand, rest normal strengths. Normal speech. Procedures EGD 3, C scope A/P Problem List: (1) GI bleed ICD Code: K92.2 Status: Acute Assessment and Plan GIB. No further GI bleed Anemia 2/2 GIB . 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 For EUS per GI op. Patient did not want surgery according to GS. He also doesn't want any blood products. Monitor H/H so far stable. colon with polyps not removed 2/2 bleeding, repeat colonoscopy with poor prep. Increase MiraLAX 34 g 3 times a day. GI to follow up for repeat colonoscopy Saturday Hiatal hernia S/p venofer IV at this time. The patient is a Jehovah witness and is refusing all blood products. Hem/onc consulted, appreciate recommendations COPD without exacerbation - Restart home meds. keep on oxygen to keep O2 sat > 90% Uncontrolled HTN: Improving continue metoprolol, restart lasix po 40 mg po daily. Monitor urine output. Monitor closely BP. IV labetalol ,hydralazine prn Cardiomyopathy, CHF systolic EF 30%, AFib/flutter , has PM. Continue home meds. Monitor BP. GI unable to clear patient to restart Coumadin at this time. He has history of A. fib and CVA . He is willing to undergo repeat colonoscopy this coming Saturday after adequate prep. Repeat chest x-ray unremarkable incentive spirometry CVA. Status post PT evaluation Continue home meds. Right upper extremity swelling with cellulitis. Doppler superficial thrombophlebitis. Elevation, warm compresses -DVT prophylaxis SCD. Chemical ppx contraindicated 2/2 GIB Discharge Planning Patient can be discharged home to continue ferrous sulfate 325 mg po bid as OP. Can return for surgery in 2-4 weeks, hopefully his HGB/HTC improves. Discharge after repeat colonoscopy when cleared by GI. Waqas Lobo MD July 07, 2016 11:59
[2016-07-07] MEDS: POLYETHYLENE GLYCOL 17 GM PKG PO SCH ×2 (13:35→18:01)
--- NOTE | 2016-07-07 16:25 | HHI.GIFU ---
Subjective Remarks Patient is resting in bed, no signs of obvious bleeding, no N/V, no abdomen pain Objective Vitals I&O Vital Signs Date Time Temp Pulse Resp B/P Pulse Ox O2 Delivery O2 Flow Rate FiO2 07/07/16 13:45 Nasal Cannula 2.00 21 07/07/16 12:00 97.9 66 20 100/49 96 07/07/16 08:20 67 07/07/16 08:00 97.9 67 20 103/67 99 07/07/16 08:00 Nasal Cannula 2.00 21 07/07/16 07:37 97 Nasal Cannula 2.00 07/07/16 04:51 20 07/07/16 04:40 98.2 98 22 114/76 96 07/07/16 00:00 98.6 73 22 101/54 98 07/06/16 22:47 98.6 76 22 116/55 97 07/06/16 20:00 72 07/06/16 19:45 Nasal Cannula 2.00 07/06/16 17:25 98 21 I/O 07/06/16 07/06/16 07/06/16 07/07/16 07/07/16 07/07/16 07:00 15:00 23:00 07:00 15:00 23:00 Intake Total 480 ml 580 ml 520 ml 360 ml Output Total 350 ml 500 ml 500 ml Balance 480 ml 230 ml 20 ml -140 ml Intake Oral 480 ml 480 ml 520 ml 360 ml Other 100 ml Output Urine Total 350 ml 500 ml 500 ml # Voids 3 # Bowel Movements 0 1 1 Laboratory Laboratory Tests Test 07/07/16 06:33 White Blood Count 7.5 Red Blood Count 3.94 Hemoglobin 8.5 Hematocrit 28.0 Mean Corpuscular Volume 71.1 Mean Corpuscular Hemoglobin 21.7 Mean Corpuscular Hemoglobin 30.5 Concent Red Cell Distribution Width 19.3 Platelet Count 163 Mean Platelet Volume 8.4 Neutrophils (%) (Auto) 57.3 Lymphocytes (%) (Auto) 23.6 Monocytes (%) (Auto) 16.9 Eosinophils (%) (Auto) 1.9 Basophils (%) (Auto) 0.3 Neutrophils # (Auto) 4.3 Lymphocytes # (Auto) 1.8 Monocytes # (Auto) 1.3 Eosinophils # (Auto) 0.1 Basophils # (Auto) 0.0 CBC Comment AUTO DIFF Differential Total Cells 100 Counted Neutrophils % (Manual) 53 Band Neutrophils % 3 Lymphocytes % 25 Monocytes % 16 Eosinophils % 2 Neutrophils # (Manual) 4.2 Differential Comment FINAL DIFF MANUAL Blastocytes 1 Platelet Estimate NORMAL Platelet Morphology Comment NORMAL Polychromasia 3.1 Ovalocytes 1+ Sodium Level 143 Potassium Level 4.2 Chloride Level 102 Carbon Dioxide Level 34.9 Anion Gap 6 Blood Urea Nitrogen 13 Creatinine 1.22 Estimat Glomerular Filtration 71 Rate Random Glucose 80 Calcium Level 8.5 Magnesium Level 2.1 Free Thyroxine 0.85 Free Triiodothyronine (T3) 2.14 pg/dL Imaging Last Impressions Upper Extremity Ultrasound 07/06/16 0000 Signed Impressions: Service Date/Time: Wednesday, July 06, 2016 15:21 - CONCLUSION: Superficial femorals widest involving the entire basilic vein Reggie Villanueva MD Chest X-Ray 07/03/16 0000 Signed Impressions: Service Date/Time: Sunday, July 03, 2016 09:48 - CONCLUSION: 1. Chronic elevation right hemidiaphragm. 2. Cardiomegaly. Miah Sawyer MD GI Bleed Scan Nuclear Medicine 06/30/16 1817 Signed Impressions: Service Date/Time: Thursday, June 30, 2016 17:35 - CONCLUSION: No active GI bleeding identified during the examination. Elmer Shoemaker MD Abdomen X-Ray 06/29/16 0326 Signed Impressions: Service Date/Time: Wednesday, June 29, 2016 03:41 - CONCLUSION: Benign abdomen. Sherwin Thomson MD Abdomen/Pelvis CT 06/29/16 0000 Signed Impressions: Service Date/Time: Wednesday, June 29, 2016 20:52 - CONCLUSION: Gallstones. Small celiac region lymph node. Renal cysts. Lung base infiltrates. No specific explanation for GI bleed William Jones MD Physical Exam HEENT: Normocephalic; atraumatic CHEST: CTA. CARDIAC: RRR. ABDOMEN: Soft, nontender; no hepatosplenomegaly; bowel sounds are present in all four quadrants. EXTREMITIES: No clubbing, cyanosis, or edema. SKIN: Normal; no rash; no jaundice. 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 Assessment and Plan Plan ASSESSMENT: - GIB, Bloody stool. Pt woke up 2am with sudden urge to move his bowels with associated nausea, dry heaving, had 3 maroon bloody stools on . Abdomen/Pelvis CT (06/29/16)----> Gallstones. Small celiac region lymph node. Renal cysts. Lung base infiltrates. No specific explanation for GI bleed. S/P EGD/Colonoscopy (06/30/16)----> 1. Large amount of food in stomach suggesting gastroparesis polypoid mass in duodenal bulb-biopsy no blood seen in stomach 2. Retroflexed views revealed a hiatal hernia. S/P EGD (07/02)----> 1. Pseudodiverticulosis, maroon stool suctioned , up to cecum-no active bleeding few polyps in ascending colon, not removed at this time due to bleeding 2. Retroflexed views revealed internal hemorrhoids 3. Retroflexed views revealed small internal hemorrhoids 4. Revealed external hemorrhoid. S/P 1. Large duodenal bulb polyp 4 cm removed by snare the site was injected by 6 cc of EPI to avoid any bleed. 2. Normal endoscopy otherwise. 3. Retroflexed views revealed no abnormalities. Plan was for colonoscopy today, but he is still having softly formed stool despite the bowel prep. Will prep again and plan for tomorrow. - Acute blood loss anemia. 8.0/25.1. PT Jehovah Witness, no blood products. Hematology following. - Polypoid duodenal mass. Pathology focally ulcerated adenomatous polyp exhibiting high grade dysplastic change. S/P complete removal, egd as outpt - Near syncopal episode, likely vasovagal- occurred while having a bowel movement. - Aflutter, Hx CVA. Pt on Coumadin. States he last took , INR 1.2. - CHF, COPD per primary - PT IS A JEHOVAH WITNESS AND DOES NOT WANT ANY BLOOD PRODUCTS 07/06 Colonoscopy attempt failed, inadequate prep. 07/07 No bleeding, hh stable, colonoscopy planned for Saturday PLAN: - CASIMIRO - Plan for colonoscopy on Saturday - Obtain consents - Clear in am - Golytely prep tomorrow - NPO mn Saturday - Cont. Miralax TID as he had inadequate prep on previous colonoscopy - Protonix 40mg iV BID - FU EGD 2-3 months as outpatient - NO BLOOD PRODUCTS, JEHOVAH WITNESS - Patient seen and examined by Dr. Littlejohn and myself Olaf Snyder July 07, 2016 16:25
[2016-07-08] VITALS (7 sets, daily range): BP systolic 107–174; BP diastolic 53–79; PULSE 67–75; RESP 18–22; TEMP 97.5–99.1; O2SAT 95–100
[2016-07-08 08:23] LABS: BICARBONATE 34.1 MEQ/L (21.0-32.0); MAGNESIUM 2.2 MG/DL (1.5-2.5); POTASSIUM 4.3 MEQ/L (3.5-5.1)
[2016-07-08] MEDS: POLYETHYLENE GLYCOL 17 GM PKG PO SCH ×6 (08:34→20:00)
[2016-07-08] MEDS: METOPROLOL TARTRATE 50 MG TAB PO SCH ×2 (08:34→20:58)
[2016-07-08] MEDS: LISINOPRIL 5 MG TAB PO SCH (08:34)
[2016-07-08] MEDS: FUROSEMIDE 40 MG TAB PO SCH (08:35)
[2016-07-08] MEDS: POTASSIUM CHLORIDE 20 MEQ CONTROLLED RELEASE TAB PO SCH ×2 (08:35→20:57)
[2016-07-08] MEDS: LEVOFLOXACIN 750 MG TAB PO SCH (08:35)
[2016-07-08] MEDS: PANTOPRAZOLE SODIUM 40 MG VIAL IV PUSH SCH ×2 (08:36→20:57)
[2016-07-08] MEDS: SODIUM CHLORIDE 0.9% FLUSH 10 ML FLUSH IV FLUSH SCH ×2 (08:36→20:58)
--- NOTE | 2016-07-08 09:40 | MR ---
cc: BOB LITTLEJOHN JOSE R. MD DATE: 07/06/2016 PROCEDURE: Incomplete colonoscopy to 45 cm. INDICATIONS FOR PROCEDURE: GI bleed. REFERRING PHYSICIAN: Dr. Lobo PROCEDURE: After informed consent was obtained the patient was placed in the left side down position. He was sedated by the anesthesia service. After adequate sedation was achieved, digital rectal examination was performed and was normal. The Pentax video colonoscope was inserted in the anal canal and advanced up into the rectum. There was some residual stool present there making advancement difficult. The scope was advanced as far as 45 cm, however, it could not be advanced further because of excessive residual stool which was going to make the examination suboptimal. The scope was then slowly withdrawn, examining as carefully as possible but getting a very poor examination. Diverticulosis was seen but otherwise the examination was negative except for the poorly prepped colon. The patient tolerated the procedure well and was returned to the recovery area in good condition. FINDINGS: The colon was poorly prepped in spite of the patient's reported taking one gallon of GoLytely. PLAN: The patient needs anticoagulation because of his other medical problems and cannot be placed back on his Coumadin until his colon is cleared. We should plan for a follow up procedure on Saturday and we will plan to clean out his colon over the course of the weekend. Bob Littlejohn MD [facility] /6:40 PM /9:36 AM
--- NOTE | 2016-07-08 14:40 | HHI.PR ---
Subjective Remarks Follow-up GI bleed. No GI bleeding. States he is having loose stools. Denies abdominal pain. Discussed with RN Objective Vitals Vital Signs Date Time Temp Pulse Resp B/P Pulse Ox O2 Delivery O2 Flow Rate FiO2 07/08/16 12:17 Nasal Cannula 2.00 21 07/08/16 12:00 98.7 67 22 108/53 100 07/08/16 08:31 Nasal Cannula 2.00 21 07/08/16 08:05 68 07/08/16 08:00 99.1 69 22 131/59 99 07/08/16 04:00 Nasal Cannula 2.00 21 07/08/16 04:00 98.3 72 18 107/63 95 07/08/16 00:00 98.3 72 18 107/63 97 07/08/16 00:00 Nasal Cannula 2.00 21 07/07/16 20:47 95 Nasal Cannula 2.00 07/07/16 20:30 98.1 70 20 118/63 100 07/07/16 20:00 Nasal Cannula 2.00 21 07/07/16 20:00 72 07/07/16 16:20 Nasal Cannula 2.00 21 07/07/16 16:00 98.6 71 18 109/59 94 I/O 07/07/16 07/07/16 07/07/16 07/08/16 07/08/16 07/08/16 06:59 14:59 22:59 06:59 14:59 22:59 Intake Total 360 ml 220 ml Output Total 500 ml 300 ml 2 ml Balance -140 ml -80 ml -2 ml Intake Oral 360 ml 220 ml IV Total 0 ml Output Urine Total 500 ml 300 ml 2 ml # Bowel Movements 1 Result Diagram: 07/07/16 0633 07/08/16 0621 Imaging Last Impressions Upper Extremity Ultrasound 07/06/16 0000 Signed Impressions: Service Date/Time: Wednesday, July 06, 2016 15:21 - CONCLUSION: Superficial femorals widest involving the entire basilic vein Reggie Villanueva MD Chest X-Ray 07/03/16 0000 Signed Impressions: Service Date/Time: Sunday, July 03, 2016 09:48 - CONCLUSION: 1. Chronic elevation right hemidiaphragm. 2. Cardiomegaly. Miah Sawyer MD GI Bleed Scan Nuclear Medicine 06/30/16 082 Signed Impressions: Service Date/Time: Thursday, June 30, 2016 17:35 - CONCLUSION: No active GI bleeding identified during the examination. Elmer Shoemaker MD Abdomen X-Ray 06/29/16 0326 Signed Impressions: Service Date/Time: Wednesday, June 29, 2016 03:41 - CONCLUSION: Benign abdomen. Sherwin Thomson MD Abdomen/Pelvis CT 06/29/16 0000 Signed Impressions: Service Date/Time: Wednesday, June 29, 2016 20:52 - CONCLUSION: Gallstones. Small celiac region lymph node. Renal cysts. Lung base infiltrates. No specific explanation for GI bleed William Jones MD Objective Remarks GENERAL: This is a well-nourished, well-developed patient, in no apparent distress. SKIN: No rashes, ecchymoses or lesions. Cool and dry. HEAD: Atraumatic. Normocephalic. No temporal or scalp tenderness. EYES: Pupils equal round and reactive. Extraocular motions intact. No scleral icterus. No injection or drainage. ENT: Nose without bleeding, purulent drainage or septal hematoma. Throat without erythema, tonsillar hypertrophy or exudate. Uvula midline. Airway patent. NECK: Trachea midline. No JVD or lymphadenopathy. Supple, nontender, no meningeal signs. CARDIOVASCULAR: Regular rate and rhythm without murmurs, gallops, or rubs. RESPIRATORY: Decreased breath sounds. No accessory muscle use. No wheezes, rales, or rhonchi. GASTROINTESTINAL: Abdomen soft, non-tender, nondistended. No guarding. MUSCULOSKELETAL: Extremities without clubbing, cyanosis. Right upper extremity edema from IV infiltration with area of erythema medial distal arm, improving. Trace LE edema. No joint tenderness, effusion, or edema noted. No calf tenderness. Negative Homans sign bilaterally. NEUROLOGICAL: Awake and alert. Cranial nerves grossly intact. Motor and sensory grossly within normal limits. Muscle strength 4/5 right hand, rest normal strengths. Normal speech. Procedures EGD 3, C scope A/P Problem List: (1) GI bleed ICD Code: K92.2 Status: Acute Assessment and Plan GIB. No further GI bleed Anemia 2/2 GIB . 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 For EUS per GI op. Patient did not want surgery according to GS. He also doesn't want any blood products. Monitor H/H so far stable. colon with polyps not removed 2/2 bleeding, repeat colonoscopy with poor prep. Increased MiraLAX 34 g 3 times a day. GI to follow up for repeat colonoscopy tomorrow Saturday Hiatal hernia S/p venofer IV at this time. The patient is a Jehovah witness and is refusing all blood products. Hem/onc consulted, appreciate recommendations COPD without exacerbation - Restart home meds. keep on oxygen to keep O2 sat > 90% Uncontrolled HTN: Improving continue metoprolol, restart lasix po 40 mg po daily. Monitor urine output. Monitor closely BP. IV labetalol ,hydralazine prn Cardiomyopathy, CHF systolic EF 30%, AFib/flutter , has PM. Continue home meds. Monitor BP. GI unable to clear patient to restart Coumadin at this time. He has history of A. fib and CVA . He is willing to undergo repeat colonoscopy this coming Saturday after adequate prep. Repeat chest x-ray unremarkable incentive spirometry CVA. Status post PT evaluation Continue home meds. Right upper extremity swelling with cellulitis. Doppler superficial thrombophlebitis. Elevation, warm compresses. Stable -DVT prophylaxis SCD. Chemical ppx contraindicated 2/2 GIB Discharge Planning Patient can be discharged home to continue ferrous sulfate 325 mg po bid as OP. Can return for surgery in 2-4 weeks, hopefully his HGB/HTC improves. Discharge after repeat colonoscopy when cleared by GI. Waqas oLbo MD July 08, 2016 14:40
--- NOTE | 2016-07-08 15:19 | HHI.GIFU ---
Subjective Remarks Pt resting comfortably in bed. Reports large amount liquid stool. No abd pain , n/v, bleeding. Objective Vitals I&O Vital Signs Date Time Temp Pulse Resp B/P Pulse Ox O2 Delivery O2 Flow Rate FiO2 07/08/16 12:17 Nasal Cannula 2.00 21 07/08/16 12:00 98.7 67 22 108/53 100 07/08/16 08:31 Nasal Cannula 2.00 21 07/08/16 08:05 68 07/08/16 08:00 99.1 69 22 131/59 99 07/08/16 04:00 Nasal Cannula 2.00 21 07/08/16 04:00 98.3 72 18 107/63 95 07/08/16 00:00 98.3 72 18 107/63 97 07/08/16 00:00 Nasal Cannula 2.00 21 07/07/16 20:47 95 Nasal Cannula 2.00 07/07/16 20:30 98.1 70 20 118/63 100 07/07/16 20:00 Nasal Cannula 2.00 21 07/07/16 20:00 72 07/07/16 16:20 Nasal Cannula 2.00 21 07/07/16 16:00 98.6 71 18 109/59 94 I/O 07/07/16 07/07/16 07/07/16 07/08/16 07/08/16 07/08/16 07:00 15:00 23:00 07:00 15:00 23:00 Intake Total 360 ml 220 ml Output Total 500 ml 300 ml 2 ml Balance -140 ml -80 ml -2 ml Intake Oral 360 ml 220 ml IV Total 0 ml Output Urine Total 500 ml 300 ml 2 ml # Bowel Movements 1 Laboratory Laboratory Tests Test 07/08/16 06:21 Sodium Level 143 Potassium Level 4.3 Chloride Level 104 Carbon Dioxide Level 34.1 Anion Gap 5 Blood Urea Nitrogen 14 Creatinine 1.30 Estimat Glomerular Filtration 66 Rate Random Glucose 84 Calcium Level 9.0 Magnesium Level 2.2 Imaging Last Impressions Upper Extremity Ultrasound 07/06/16 0000 Signed Impressions: Service Date/Time: Wednesday, July 06, 2016 15:21 - CONCLUSION: Superficial femorals widest involving the entire basilic vein Reggie Villanueva MD Chest X-Ray 07/03/16 0000 Signed Impressions: Service Date/Time: Sunday, July 03, 2016 09:48 - CONCLUSION: 1. Chronic elevation right hemidiaphragm. 2. Cardiomegaly. Miah Sawyer MD GI Bleed Scan Nuclear Medicine 06/30/16 1817 Signed Impressions: Service Date/Time: Thursday, June 30, 2016 17:35 - CONCLUSION: No active GI bleeding identified during the examination. Elmer Shoemaker MD Abdomen X-Ray 06/29/16 0326 Signed Impressions: Service Date/Time: Wednesday, June 29, 2016 03:41 - CONCLUSION: Benign abdomen. Sherwin Thomson MD Abdomen/Pelvis CT 06/29/16 0000 Signed Impressions: Service Date/Time: Wednesday, June 29, 2016 20:52 - CONCLUSION: Gallstones. Small celiac region lymph node. Renal cysts. Lung base infiltrates. No specific explanation for GI bleed William Jones MD Physical Exam HEENT: Normocephalic; atraumatic CHEST: CTA. CARDIAC: RRR. ABDOMEN: Soft, obese; no hepatosplenomegaly; bowel sounds are present in all four quadrants. EXTREMITIES: No clubbing, cyanosis, or edema. SKIN: Normal; no rash; no jaundice. 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 Assessment and Plan Plan ASSESSMENT: - GIB, Bloody stool. Pt woke up 2am with sudden urge to move his bowels with associated nausea, dry heaving, had 3 maroon bloody stools on . Abdomen/Pelvis CT (06/29/16)----> Gallstones. Small celiac region lymph node. Renal cysts. Lung base infiltrates. No specific explanation for GI bleed. S/P EGD/Colonoscopy (06/30/16)----> 1. Large amount of food in stomach suggesting gastroparesis polypoid mass in duodenal bulb-biopsy no blood seen in stomach 2. Retroflexed views revealed a hiatal hernia. S/P EGD (07/02)----> 1. Pseudodiverticulosis, maroon stool suctioned , up to cecum-no active bleeding few polyps in ascending colon, not removed at this time due to bleeding 2. Retroflexed views revealed internal hemorrhoids 3. Retroflexed views revealed small internal hemorrhoids 4. Revealed external hemorrhoid. S/P 1. Large duodenal bulb polyp 4 cm removed by snare the site was injected by 6 cc of EPI to avoid any bleed. 2. Normal endoscopy otherwise. 3. Retroflexed views revealed no abnormalities. He had colonoscopy last week but prep was poor. Will prep again and plan for tomorrow. - Acute blood loss anemia. 8.0/25.1. PT Jehovah Witness, no blood products. Hematology following. - Polypoid duodenal mass. Pathology focally ulcerated adenomatous polyp exhibiting high grade dysplastic change. S/P complete removal, egd as outpt - Near syncopal episode, likely vasovagal- occurred while having a bowel movement. - Aflutter, Hx CVA. Pt on Coumadin. States he last took , INR 1.2. - CHF, COPD per primary - PT IS A JEHOVAH WITNESS AND DOES NOT WANT ANY BLOOD PRODUCTS 07/06 Colonoscopy attempt failed, inadequate prep. 07/07 No bleeding, hh stable, colonoscopy planned for Saturday PLAN: - CASIMIRO - Plan for colonoscopy tomorrow - Obtain consents - Clear in am - 3 x miralax 36g q2h starting now - 3 x dulcolax q2h starting now - NPO mn Saturday - Cont. Miralax TID as he had inadequate prep on previous colonoscopy - Protonix 40mg iV BID - FU EGD 2-3 months as outpatient - NO BLOOD PRODUCTS, JEHOVAH WITNESS - Patient seen and examined by Dr. Littlejohn and myself Bhargavi Mota July 08, 2016 15:19
[2016-07-08] MEDS: BISACODYL EC 5 MG TABEC PO SCH ×3 (16:22→20:58)
[2016-07-09] VITALS: BP 143/59; PULSE 69; RESP 20; TEMP 98.1; O2SAT 100
[2016-07-09 04:00] VITALS: BP 119/59; PULSE 66; RESP 20; TEMP 99.6; O2SAT 96
[2016-07-09 07:39] VITALS: PULSE 65
[2016-07-09 08:00] VITALS: BP 125/74; PULSE 63; RESP 20; TEMP 98.4; O2SAT 98
[2016-07-09] MEDS ORDERED: LEVOTHYROXINE SODIUM 150 MCG TAB PO SCH (08:45)
[2016-07-09] MEDS: POLYETHYLENE GLYCOL 17 GM PKG PO SCH ×3 (09:00→14:02)
[2016-07-09] MEDS ORDERED: PROPOFOL 200 MG/20 ML AMP IV ONE (09:02)
--- NOTE | 2016-07-09 09:44 | PD.PROCEDR ---
GI Procedure REFERRING PHYSICIAN REMY SANDERS PERFORMED Colonoscopy with snare polypectomy and polyp ablation INDICATION FOR PROCEDURE Lower GI bleed PROCEDURE: The procedure, risks and benefits were discussed with Mr. Terry and informed consent was obtained. Anesthesia sedated him with Diprivan. He was placed in the left lateral decubitus position. Colonoscopy: The Pentax videoscope was introduced through the rectum and advanced to cecum where the ileocecal valve and appendiceal orifice were identified. Retroflexion was performed in the rectum. Colonic prep was fair to suboptimal FINDINGS: As the scope was slowly withdrawn colonic mucosa was carefully inspected colonic withdrawal time greater than 6 minutes patient was noted to have scattered diverticulosis specifically ascending transverse and sigmoid patient was also noted to have a diminutive polyp in the ascending colon this was ablated there was a large polyp in the ascending colon this was excised using cold snare technique there was a second smaller polyp in the proximal transverse colon this was excised using cold snare technique otherwise colonic examination was unremarkable so as retroflexion and rectal examination except for moderate size internal hemorrhoids ESTIMATED BLOOD LOSS: None SPECIMENS REMOVED: Colon polyps COMPLICATIONS: None IMPRESSION: Colon polyps Scattered diverticulosis Moderately sized internal hemorrhoids PLAN: Await biopsy Avoid straining when defecating Continue supportive care Recommend colonoscopy in one year Scott Fontaine MD July 09, 2016 09:44
[2016-07-09 09:59] VITALS: O2SAT 98
[2016-07-09] MEDS ORDERED: DO NOT ADM ANY ANTICOAGULANT DRUGS PRN (10:15)
[2016-07-09] MEDS: LEVOFLOXACIN 750 MG TAB PO SCH (10:18)
[2016-07-09] MEDS: METOPROLOL TARTRATE 50 MG TAB PO SCH (10:18)
[2016-07-09] MEDS: LISINOPRIL 5 MG TAB PO SCH (10:18)
[2016-07-09] MEDS: FUROSEMIDE 40 MG TAB PO SCH (10:18)
[2016-07-09] MEDS: POTASSIUM CHLORIDE 20 MEQ CONTROLLED RELEASE TAB PO SCH (10:19)
[2016-07-09] MEDS: PANTOPRAZOLE SODIUM 40 MG VIAL IV PUSH SCH (10:19)
[2016-07-09] MEDS: SODIUM CHLORIDE 0.9% FLUSH 10 ML FLUSH IV FLUSH SCH (10:19)
[2016-07-09 12:00] VITALS: BP_SYST 140; BP_SYST 92; BP_DIAS 60; BP_DIAS 73; PULSE 70; PULSE 75; RESP 20; TEMP 97.2; TEMP 99.1; O2SAT 92; O2SAT 94
[2016-07-09] MEDS ORDERED: WARFARIN SOD 5 MG TAB PO ONE (12:15)
[2016-07-09] MEDS ORDERED: LEVO.15 PO (12:17)
--- NOTE | 2016-07-09 12:20 | HHI.DS ---
Discharge Summary Admission Date July 03, 2016 at 12:19 Discharge Date: July 09, 2016 Admitting Diagnosis GI Bleed, anemia, near syncope, paced rhythnm (1) GI bleed ICD Code: K92.2 Procedures EGD 3, C scope Brief History - From Admission 70-year-old male with a history of COPD, systolic CHF EF 30%, previous left sided MCA stroke, A Fib/Flutter, paced rhythm, who presented to the ED with complaints of near syncope while having a bowel movement. The patient reports that he's had 3 large explosive bowel movements all bloody. He states the last bowel movement was followed by severe dizziness, sweating and feeling as though he was given a pass out. He was waking up at 2 AM with some abdominal pain, ' knot" and fullness, he went to the bath without problems and had 3 large bloody BMs. He says this never happened before. The patient is taking Coumadin for his abnormal cardiac rhythm for a long time. INR admission 1.2 . He denies any pain. He denies any shortness of breath. He states he is much better now. No subsequent BM thereafter. He is not feeling dizzy anymore. He says he never had EGD/Colonoscopy in the past but agrees to it. The patient is a Jehovah witness and is refusing all blood products. He states that he last took his Coumadin yesterday and takes that daily as prescribed, his INR is 1.2. He has right hand weakness at baseline form previous CVA. No other symptoms at this time. CBC/BMP: 07/07/16 0633 07/08/16 0621 Significant Findings Laboratory Tests Test 07/07/16 07/08/16 06:33 06:21 Red Blood Count 3.94 MIL/MM3 (4.50-5.90) Hemoglobin 8.5 GM/DL (13.0-17.0) Hematocrit 28.0 % (39.0-51.0) Mean Corpuscular Volume 71.1 FL (80.0-100.0) Mean Corpuscular Hemoglobin 21.7 PG (27.0-34.0) Mean Corpuscular Hemoglobin 30.5 % Concent (32.0-36.0) Red Cell Distribution Width 19.3 % (11.6-17.2) Monocytes (%) (Auto) 16.9 % (0.0-8.0) Monocytes # (Auto) 1.3 TH/MM3 (0-0.9) Monocytes % 16 % (0-8) Blastocytes 1 % (0-0) Polychromasia 3.1 % (0.0-1.9) Ovalocytes 1+ (NORMAL) Carbon Dioxide Level 34.9 MEQ/L 34.1 MEQ/L (21.0-32.0) (21.0-32.0) Estimat Glomerular Filtration 71 ML/MIN (>89) 66 ML/MIN (>89) Rate Free Triiodothyronine (T3) 2.14 PG/ML pg/dL (2.18-3.98) Imaging Last Impressions Upper Extremity Ultrasound 07/06/16 0000 Signed Impressions: Service Date/Time: Wednesday, July 06, 2016 15:21 - CONCLUSION: Superficial femorals widest involving the entire basilic vein Reggie Villanueva MD Chest X-Ray 07/03/16 0000 Signed Impressions: Service Date/Time: Sunday, July 03, 2016 09:48 - CONCLUSION: 1. Chronic elevation right hemidiaphragm. 2. Cardiomegaly. Miah Sawyer MD GI Bleed Scan Nuclear Medicine 06/30/16 1817 Signed Impressions: Service Date/Time: Thursday, June 30, 2016 17:35 - CONCLUSION: No active GI bleeding identified during the examination. Elmer Shoemaker MD Abdomen X-Ray 06/29/16 0326 Signed Impressions: Service Date/Time: Wednesday, June 29, 2016 03:41 - CONCLUSION: Benign abdomen. Sherwin Thomson MD Abdomen/Pelvis CT 06/29/16 0000 Signed Impressions: Service Date/Time: Wednesday, June 29, 2016 20:52 - CONCLUSION: Gallstones. Small celiac region lymph node. Renal cysts. Lung base infiltrates. No specific explanation for GI bleed William Jones MD PE at Discharge GENERAL: This is a well-nourished, well-developed patient, in no apparent distress. SKIN: No rashes, ecchymoses or lesions. Cool and dry. HEAD: Atraumatic. Normocephalic. No temporal or scalp tenderness. EYES: Pupils equal round and reactive. Extraocular motions intact. No scleral icterus. No injection or drainage. ENT: Nose without bleeding, purulent drainage or septal hematoma. Throat without erythema, tonsillar hypertrophy or exudate. Uvula midline. Airway patent. NECK: Trachea midline. No JVD or lymphadenopathy. Supple, nontender, no meningeal signs. CARDIOVASCULAR: Regular rate and rhythm without murmurs, gallops, or rubs. RESPIRATORY: Decreased breath sounds. No accessory muscle use. No wheezes, rales, or rhonchi. GASTROINTESTINAL: Abdomen soft, non-tender, nondistended. No guarding. MUSCULOSKELETAL: Extremities without clubbing, cyanosis. Right upper extremity edema from IV infiltration with area of erythema medial distal arm, improving. Trace LE edema. No joint tenderness, effusion, or edema noted. No calf tenderness. Negative Homans sign bilaterally. NEUROLOGICAL: Awake and alert. Cranial nerves grossly intact. Motor and sensory grossly within normal limits. Muscle strength 4/5 right hand, rest normal strengths. Normal speech. Hospital Course GIB. No further GI bleed Anemia 2/2 GIB . 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 For EUS per GI op. Patient did not want surgery according to GS. He also doesn't want any blood products. Monitor H/H so far stable. colon with polyps not removed 2/2 bleeding, repeat colonoscopy with HH, diverticulosis and polyp s/p polypectomy. Follow-up pathology Hiatal hernia S/p venofer IV at this time. The patient is a Jehovah witness and is refusing all blood products. Hem/onc consulted, appreciate recommendations continue iron COPD without exacerbation - Restart home meds. keep on oxygen to keep O2 sat > 90% Uncontrolled HTN: Improving continue metoprolol, restart lasix po 40 mg po daily. Monitor urine output. Monitor closely BP. IV labetalol ,hydralazine prn Cardiomyopathy, CHF systolic EF 30%, AFib/flutter , has PM. Continue home meds. Monitor BP. He has history of A. fib and CVA . Restart Coumadin if okay with GI Repeat chest x-ray unremarkable incentive spirometry CVA. Status post PT evaluation Continue home meds. Right upper extremity swelling with cellulitis. Doppler superficial thrombophlebitis. Elevation, warm compresses. Stable -DVT prophylaxis SCD. Chemical ppx contraindicated 2/2 GIB Discharge Planning Patient can be discharged home to continue ferrous sulfate 325 mg po bid as OP. Can return for surgery in 2-4 weeks, hopefully his HGB/HTC improves. Pt Condition on Discharge: Stable Discharge Disposition: Discharge Home Discharge Time: > 30 minutes Discharge Instructions DIET: Follow Instructions for: Heart Healthy Diet Activities you can perform: Regular-No Restrictions Activities to Avoid: Driving Waqas Lobo MD July 09, 2016 12:20
== END 2016-07-09 15:01 | disposition home or self-care (01) | DRG 378 ==
LOC: NEPE 03:12 → INTOOBSV 05:29 → NEDA 05:29 → N07A 06:26 → HIMN 06-30 11:57 → OBSVTOIN 07-03 12:19 → N04A 07-03 15:15
PROVIDERS: ADMIT Internal Medicine; ATTEND Internal Medicine
PROC: 0DB98ZX Excision of Duodenum, Via Natural or Artificial Opening Endoscopic, Diagnostic (ICD-10-PCS; principal; 2016-06-29 13:10)
PROC: 3E0G8GC Introduction of Other Therapeutic Substance into Upper GI, Via Natural or Artificial Opening Endoscopic (ICD-10-PCS; 2016-06-30)
PROC: 0DJD8ZZ Inspection of Lower Intestinal Tract, Via Natural or Artificial Opening Endoscopic (ICD-10-PCS; 2016-06-30)
PROC: 0W3P8ZZ Control Bleeding in Gastrointestinal Tract, Via Natural or Artificial Opening Endoscopic (ICD-10-PCS; 2016-06-30 10:03)
PROC: 0DB98ZX Excision of Duodenum, Via Natural or Artificial Opening Endoscopic, Diagnostic (ICD-10-PCS; 2016-07-02)
PROC: 0DJD8ZZ Inspection of Lower Intestinal Tract, Via Natural or Artificial Opening Endoscopic (ICD-10-PCS; 2016-07-06)
PROC: 0DBK8ZX Excision of Ascending Colon, Via Natural or Artificial Opening Endoscopic, Diagnostic (ICD-10-PCS; 2016-07-09)
PROC: 0DBL8ZX Excision of Transverse Colon, Via Natural or Artificial Opening Endoscopic, Diagnostic (ICD-10-PCS; 2016-07-09)
PROC: 0D5K8ZZ Destruction of Ascending Colon, Via Natural or Artificial Opening Endoscopic (ICD-10-PCS; 2016-07-09)
DX: K92.2 Gastrointestinal hemorrhage, unspecified (principal); I50.22 Chronic systolic (congestive) heart failure; I42.9 Cardiomyopathy, unspecified; I80.8 Phlebitis and thrombophlebitis of other sites; K31.84 Gastroparesis; I11.0 Hypertensive heart disease with heart failure; J44.9 Chronic obstructive pulmonary disease, unspecified; I48.91 Unspecified atrial fibrillation; I48.92 Unspecified atrial flutter; R55 Syncope and collapse; D62 Acute posthemorrhagic anemia; L03.113 Cellulitis of right upper limb; N28.1 Cyst of kidney, acquired; K31.7 Polyp of stomach and duodenum; K63.5 Polyp of colon; K64.8 Other hemorrhoids; K64.4 Residual hemorrhoidal skin tags; D50.9 Iron deficiency anemia, unspecified; K44.9 Diaphragmatic hernia without obstruction or gangrene; K80.80 Other cholelithiasis without obstruction; K57.30 Diverticulosis of large intestine without perforation or abscess without bleeding; M10.9 Gout, unspecified; G47.30 Sleep apnea, unspecified; K80.20 Calculus of gallbladder without cholecystitis without obstruction; K59.00 Constipation, unspecified; I69.331 Monoplegia of upper limb following cerebral infarction affecting right dominant side; Z95.0 Presence of cardiac pacemaker; Z79.01 Long term (current) use of anticoagulants
CPT/HCPCS: 71010; 74000; 74177; 76937; 78278; 80048; 80053; 82728; 83540; 83550; 83735; 84439; 84443; 84481; 85007; 85014; 85018; 85025; 85027; 85610; 85730; 86850; 86900; 86901; 86920; 87641; 88305; 93005; 93971; 94150; 96360; A9560; C9113; G8987-GP; G8988-GP; J0171; J0360; J1756; J2250; J2405; J3010; J7030; Q4081; Q9963; Q9967

== ENCOUNTER 2016-10-09 13:34 | Emergency (ER) | payer MEDICARE, OTHER ==
[~2016-10-09] VITALS: Ht 170.2 cm; Wt 108.8 kg
[~2016-10-09 13:34] MED LIST changes: -ASPI325T PO; +FERR325T PO; +FURO1TAB60 PO; -FURO20 PO; +LEVA750T PO; +LEVO.15 PO; +LISI-519 PO; -PACE100T2 PO; +POTA20TA5 PO; -RANI150T PO; -WARF2TAB PO; +WARF4TAB51 PO; +ZANT150T2 PO
[2016-10-09 13:44] VITALS: BP 156/88; PULSE 65; RESP 15; TEMP 97.8; O2SAT 94
[2016-10-09] MEDS ORDERED: ASPI81CH37 CHEW (14:04)
[2016-10-09] MEDS ORDERED: POTA-245 PO (14:04)
--- NOTE | 2016-10-09 14:08 | PD ---
HPI Chief Complaint: Fall Time Seen by Provider: 13:56 Travel History International Travel<30 days: No Contact w/Intl Traveler<30days: No Traveled to known affect area: No History of Present Illness HPI 71-year-old male here with his daughter for evaluation of head injury after a mechanical fall that occurred at around 8:30 AM today. Patient has history of CVA and is on Coumadin as well as aspirin. Patient was apparently trying to reach to close a door when he stumbled and fell to the ground. He denies LOC. This fall was unwitnessed. He sustained a laceration to his left anterior scalp. Apparently there was a moderate amount of bleeding which was stopped with pressure. The patient's daughter cleanse the wound and applied peroxide. Patient has been acting normally. He has not had any vomiting. He is having some left sided head pain. He denies neck or back pain. No other injuries. No chest pain or dyspnea. The patient was admitted to the hospital 2 months ago for upper and lower GI bleed. He denies recent melena or hematochezia. PFSH Past Medical History Hx Anticoagulant Therapy: Yes (WARFARIN AND ASA) Arthritis: No Asthma: No Autoimmune Disease: No Blood Disorders: No Anxiety: No Depression: No Heart Rhythm Problems: Yes (afib) Cardiovascular Problems: Yes (cva) High Cholesterol: No Chemotherapy: No Chest Pain: No Congestive Heart Failure: Yes COPD: Yes Cerebrovascular Accident: Yes (2015) Diabetes: No Endocrine: No GERD: No Gout: Yes Genitourinary: No Headaches: No Hiatal Hernia: No Hypertension: Yes Immune Disorder: No Implanted Vascular Access Dvce: No Kidney Stones: No Musculoskeletal: Yes (gout) Neurologic: No Psychiatric: No Reproductive: No Respiratory: Yes Immunizations Current: No Migraines: No Radiation Therapy: No Renal Failure: No Sickle Cell Disease: No Sleep Apnea: Yes Thyroid Disease: No Ulcer: No Tetanus Vaccination: > 5 Years Influenza Vaccination: No Past Surgical History Abdominal Surgery: No AICD: No Appendectomy: Yes Arteriovenous Shunt: No Cardiac Surgery: Yes (Pacemaker/defib.) Ear Surgery: No Endocrine Surgery: Yes (tonsillectomy) Eye Surgery: No Genitourinary Surgery: No Gynecologic Surgery: No Insulin Pump: No Joint Replacement: No Oral Surgery: No Pacemaker: Yes Thoracic Surgery: No Tonsillectomy: Yes Other Surgery: Yes Social History Alcohol Use: Yes (Occ.) Tobacco Use: No Substance Use: No Allergies-Medications (Allergen,Severity, Reaction): Coded Allergies: amoxicillin (Unverified Allergy, Intermediate, DELERIOUS, 10/09/16) Uncoded Allergies: all cillian (Allergy, Severe, Hallucinations, 06/29/16) Reported Meds & Prescriptions Reported Meds & Active Scripts Active Synthroid (Levothyroxine Sodium) 150 Mcg Tab 150 Mcg PO DAILY@0600 Reported Aspirin Low Dose (Aspirin) 81 Mg Chew 81 Mg CHEW DAILY Klor-Con M20 (Potassium Chloride Microencaps) 20 Meq Tab 20 Meq PO DAILY Warfarin 2 Mg Tab 2 Mg PO DAILY Zantac (Ranitidine HCl) 150 Mg Tab 150 Mg PO BID Lasix (Furosemide) 40 Mg Tab 40 Mg PO BID Metoprolol Tartrate 50 Mg Tab 50 Mg PO BID Review of Systems Except as stated in HPI: all other systems reviewed are Neg Physical Exam Narrative GENERAL: Well-developed, well-nourished, awake, alert, GCS 15, no apparent distress. SKIN: Focused skin assessment warm/dry. Left anterior scalp with small/ superficial laceration that does not require repair with no active bleeding. HEAD: Skin exam as above. Normocephalic. EYES: Pupils equal, round, 2 mm, reactive to light. No scleral icterus. No injection or drainage. ENT: No nasal bleeding or discharge. Mucous membranes pink and moist. NECK: Trachea midline. No JVD. No midline cervical spine step-off or tenderness. CARDIOVASCULAR: Regular rate and rhythm. No murmur appreciated. RESPIRATORY: No accessory muscle use. Clear to auscultation. Breath sounds equal bilaterally. GASTROINTESTINAL: Abdomen soft, non-tender, nondistended. MUSCULOSKELETAL: No obvious deformities. No clubbing. No cyanosis. No edema. NEUROLOGICAL: Awake and alert. No obvious cranial nerve deficits. Right upper extremity weakness which is the patient's baseline secondary to previous CVA. Normal speech. PSYCHIATRIC: Appropriate mood and affect; insight and judgment normal. Data Data Last Documented VS Vital Signs Date Time Temp Pulse Resp B/P (MAP) Pulse Ox O2 Delivery O2 Flow Rate FiO2 10/09/16 14:20 95 Room Air 10/09/16 13:44 97.8 65 15 156/88 (110) Orders Orders Basic Metabolic Panel (Bmp) (10/09/16 14:03) Complete Blood Count With Diff (10/09/16 14:03) Prothrombin Time / Inr (Pt) (10/09/16 14:03) Act Partial Throm Time (Ptt) (10/09/16 14:03) Iv Access Insert/Monitor (10/09/16 14:03) Ecg Monitoring (10/09/16 14:03) Oximetry (10/09/16 14:03) Sodium Chloride 0.9% Flush (Ns Flush) (10/09/16 14:15) Ct Brain W/O Iv Contrast(Rout) (10/09/16 ) Ct Cerv Spine W/O Contrast (10/09/16 ) Tetanus/Diphtheria Tox Adult (Tetanus/Di (10/09/16 14:15) Labs Laboratory Tests Test 10/09/16 14:20 White Blood Count 5.5 TH/MM3 Red Blood Count 5.50 MIL/MM3 Hemoglobin 11.8 GM/DL Hematocrit 37.6 % Mean Corpuscular Volume 68.4 FL Mean Corpuscular Hemoglobin 21.4 PG Mean Corpuscular Hemoglobin Concent 31.4 % Red Cell Distribution Width 17.5 % Platelet Count 208 TH/MM3 Mean Platelet Volume 8.2 FL Neutrophils (%) (Auto) 45.4 % Lymphocytes (%) (Auto) 31.2 % Monocytes (%) (Auto) 17.6 % Eosinophils (%) (Auto) 4.9 % Basophils (%) (Auto) 0.9 % Neutrophils # (Auto) 2.5 TH/MM3 Lymphocytes # (Auto) 1.7 TH/MM3 Monocytes # (Auto) 1.0 TH/MM3 Eosinophils # (Auto) 0.3 TH/MM3 Basophils # (Auto) 0.0 TH/MM3 CBC Comment AUTO DIFF Differential Comment AUTO DIFF CONFIRMED Platelet Estimate NORMAL Platelet Morphology Comment NORMAL Prothrombin Time 13.3 SEC Prothromb Time International Ratio 1.2 RATIO Activated Partial Thromboplast Time 27.1 SEC Blood Urea Nitrogen 19 MG/DL Creatinine 1.10 MG/DL Random Glucose 105 MG/DL Calcium Level 9.2 MG/DL Sodium Level 140 MEQ/L Potassium Level 3.5 MEQ/L Chloride Level 105 MEQ/L Carbon Dioxide Level 28.3 MEQ/L Anion Gap 7 MEQ/L Estimat Glomerular Filtration Rate 80 ML/MIN MDM Medical Decision Making Medical Screen Exam Complete: Yes Emergency Medical Condition: Yes Medical Record Reviewed: Yes Differential Diagnosis Intracranial trauma, cervical spine injury, coagulopathy Narrative Course Vital signs show heart rate 65, blood pressure 156/80, pulse ox 95% on room air , oral temp of 97.8F. CBC shows WBC 5.5, hemoglobin 11.8, hematocrit 37.6, platelets 208. BMP is unremarkable. INR is subtherapeutic at 1.2. CT head: No acute disease. CT cervical spine: CONCLUSION: 1. Multilevel degenerative disc disease with loss of disc height from C4-5 inferiorly, most severe at C5-6 and C6-7. 2. No fracture. Multilevel facet hypertrophy. Patient and the patient's daughter were made aware of all findings including subtherapeutic INR. Patient is a small left anterior scalp laceration that is already in the process of healing and does not require repair. The patient is stable for discharge home with outpatient follow-up with his primary care physician this week. He was informed on when to return to the emergency department. Both the patient and the patient's daughter verbalize understanding and agreement with plan. Diagnosis Primary Impression: Fall Qualified Codes: W19.XXXA - Unspecified fall, initial encounter Additional Impressions: Closed head injury Qualified Codes: S09.90XA - Unspecified injury of head, initial encounter Subtherapeutic international normalized ratio (INR) Scalp laceration Qualified Codes: S01.01XA - Laceration without foreign body of scalp, initial encounter Referrals: Primary Care Physician 3 days Additional Instructions: Follow-up with your primary care physician this week. Return to the emergency department for worsening symptoms or any other concerns. Disposition: 01 DISCHARGE HOME Condition: Stable Marty Monahan MD Oct 09, 2016 14:08
[2016-10-09] MEDS ORDERED: TETANUS/DIPHTHERIA TOXOID ADULT 0.5 ML VIAL IM ONE (14:15)
[2016-10-09] MEDS ORDERED: SODIUM CHLORIDE 0.9% FLUSH 10 ML FLUSH IV FLUSH PRN (14:15)
[2016-10-09 14:20] VITALS: O2SAT 95
[2016-10-09 14:26] LABS: AUTOMATED NEUTROPHIL # 2.5 TH/MM3 (1.8-7.7); BASOPHIL % 0.9 % (0.0-2.0); EOSINOPHIL # 0.3 TH/MM3 (0-0.4); EOSINOPHIL % 4.9 % (0.0-4.0); HEMATOCRIT 37.6 % (39.0-51.0); LYMPH % 31.2 % (9.0-44.0); LYMPHOCYTE # 1.7 TH/MM3 (1.0-4.8); MEAN CELL VOLUME 68.4 FL (80.0-100.0); MEAN CORPUSCULAR HEMOGLOBIN 21.4 PG (27.0-34.0); MEAN CORPUSCULAR HGB CONC 31.4 % (32.0-36.0); MONO % 17.6 % (0.0-8.0); NEUT % 45.4 % (16.0-70.0); PLATELET COUNT 208 TH/MM3 (150-450); RED CELL DISTRIBUTION WIDTH 17.5 % (11.6-17.2); WHITE BLOOD COUNT 5.5 TH/MM3 (4.0-11.0)
[2016-10-09 14:28] LABS: HEMO FLAGS AUTO DIFF
[2016-10-09 14:36] LABS: POTASSIUM 3.5 MEQ/L (3.5-5.1)
[2016-10-09 14:39] LABS: BICARBONATE 28.3 MEQ/L (21.0-32.0)
[2016-10-09 14:40] LABS: APTT (PATIENT) 27.1 SEC (24.3-30.1); INTERNATIONAL NORMALIZED RATIO 1.2 RATIO; PROTHROMBIN TIME - PATIENT 13.3 SEC (9.8-11.6)
--- NOTE | 2016-10-09 14:59 | RADRPT ---
EXAM DATE/TIME: 10/09/2016 14:40 [facility] COMPARISON: CT BRAIN W/O CONTRAST, February 17, 2014, 23:57. INDICATIONS : Fell and hit head on left side. Headache and nausea. RADIATION DOSE: 64.23 CTDIvol (mGy) MEDICAL HISTORY : Cerebrovascular disease. Cardiovascular disease Hypertension.Anticoagulant therapy. SURGICAL HISTORY : Pacemaker. Appendectomy. ENCOUNTER: Initial ACUITY: 1 day PAIN SCALE: 5/10 LOCATION: Left cranial TECHNIQUE: Multiple contiguous axial images were obtained of the head. Using automated exposure control and adj ustment of the mA and/or kV according to patient size, radiation dose was kept as low as reasonably a chievable to obtain optimal diagnostic quality images. DICOM format image data is available electro nically for review and comparison. FINDINGS: There is encephalomalacia in the left frontal region from remote MCA infarct. There is no hemorrhage. No masses are seen. No fractures are identified. CONCLUSION: No acute disease. Perez Stern MD on October 09, 2016 at 14:57 Board Certified Radiologist. This report was verified electronically.
[2016-10-09 15:16] LABS: PLATELET ESTIMATE SMEAR NORMAL (NORMAL); PLATELET MORPHOLOGY NORMAL (NORMAL); SCAN/DIFF AUTO DIFF CONFIRMED
--- NOTE | 2016-10-09 15:24 | RADRPT ---
EXAM DATE/TIME: 10/09/2016 14:40 [facility] COMPARISON: No previous studies available for comparison. INDICATIONS : Fell and hit head on left side. Headache and nausea. RADIATION DOSE: 31.89 CTDIvol (mGy) ; Patient body habitus MEDICAL HISTORY : Cerebrovascular disease. Cardiovascular disease Hypertension.Anticoagulant therapy. SURGICAL HISTORY : Pacemaker. Appendectomy. ENCOUNTER: Initial ACUITY: 1 day PAIN SCALE: 5/10 LOCATION: Left neck TECHNIQUE: Volumetric scanning of the cervical spine was performed. Multiplanar reconstructions in the sagittal, coronal and oblique axial planes were performed. Using automated exposure control and adjustment o f the mA and/or kV according to patient size, radiation dose was kept as low as reasonably achievable to obtain optimal diagnostic quality images. DICOM format image data is available electronically f or review and comparison. FINDINGS: Sagittal and coronal reconstructions show multilevel degenerative disc disease with some loss of heig ht predominately from C4-5 inferiorly. Vertebral body heights are maintained without fracture or list hesis. Detailed axial images as follows: C2-C3: Right-sided facet hypertrophy. Spinal canal and neural foramina are patent C3-C4: Bilateral facet hypertrophy. Spinal canal and neural foramina are patent C4-C5: Bilateral facet hypertrophy. Spinal canal and neural foramina are adequate C5-C6: Bilateral facet hypertrophy. Minimal encroachment on the neural foramina. Spinal canal and neural for sade are adequate C6-C7: The bony spinal canal is normal in size. No evidence of disc bulge or herniation. The neural forami na are bilaterally patent. C7-T1: The bony spinal canal is normal in size. No evidence of disc bulge or herniation. The neural forami na are bilaterally patent. CONCLUSION: 1. Multilevel degenerative disc disease with loss of disc height from C4-5 inferiorly, most severe at C5-6 and C6-7. 2. No fracture. Multilevel facet hypertrophy. Tomer Monet MD on October 09, 2016 at 15:17 Board Certified Radiologist. This report was verified electronically.
[2016-10-09 15:50] VITALS: BP 145/86; PULSE 61; RESP 16; O2SAT 97
== END 2016-10-09 16:01 | disposition home or self-care (01) ==
LOC: PHED 13:34
DX: S01.01XA Laceration without foreign body of scalp, initial encounter (principal); I50.9 Heart failure, unspecified; W01.0XXA Fall on same level from slipping, tripping and stumbling without subsequent striking against object, initial encounter; Z23 Encounter for immunization
CPT/HCPCS: 70450; 72125; 80048; 85025; 85610; 85730; 90471; 90714